=== PATIENT | female | born 1990 | race Caucasian/White ===

== ENCOUNTER 2016-12-03 14:28 | Emergency (ER) | payer MEDICAID ==
[~2016-12-03] VITALS: Ht 144.8 cm; Wt 59.0 kg
[~2016-12-03 14:28] MED LIST: ACET325T38 PO; ACHYD1T PO; ALBU8.5H4 IH; ASP81TEC PO; CLIN-62 PO; CLIN150C2 PO; CPR500T PO; HC A28.3 PR; HYDR1TAB PO; IBP800T PO; METR500T PO; NAPR-243 PO; NITR-33 PO; NITR-65 PO; NITR100C PO; ONDA8TAB9 PO; PHEN-452 PO; PHEN200T16 PO; PREN-148 PO; PREN1TAB39 PO; Progesterone; SULF-109 PO; SULF-222 PO; TRAM-21 PO; TRAM50TA2 PO; [UNRECOGNIZED DRUG - CODE] PO
[2016-12-03] MEDS ORDERED: AMPH30TA2 PO (14:41)
--- NOTE | 2016-12-03 14:49 | ED Psychosocial ---
General Chief Complaint: Psych/Social Disorder Stated Complaint: PALPITATIONS SWEATY SOA Nursing Triage Note: PT CO OF ANXIETY STATES FEELS LIKE HEART IS RACING, PT HYPERVENTILATING AT THIS X, CO OF HANDS BEING NUMB AND LIPS BEING NONE, PT ENC TO SLOW BREATHING DOWN. STATES HAS BEEN LIKE THIS SINCE 0600 THIS AM Source: patient Exam Limitations: no limitations History of Present Illness Time seen by provider: 14:49 Allergies and Home Medications Allergies Coded Allergies: Penicillins (Unverified Allergy, Mild, 04/11/09) amoxicillin (Unverified Allergy, Mild, UNKNOWN, 06/22/09) cefaclor (Unverified Allergy, Mild, 04/11/09) pseudoephedrine (Unverified Allergy, Mild, 04/11/09) Home Medications Dextroamphetamine/Amphetamine 30 Mg Tablet, 30 MG PO BID, (Reported) Past Iwkgfhf-Lpsolg-Guxdnc Hx Patient Social History Alcohol Use: Occasionally Uses Recreational Drug Use: Yes Smoking Status: Never a Smoker Recent Foreign Travel: No Contact w/Someone Who Travel: No Recent Infectious Disease Expo: No Recent Hopitalizations: No Immunizations Up To Date Tetanus Booster (TDap): More than 5yrs Seasonal Allergies Seasonal Allergies: No Surgeries HX Surgeries: Yes ("BLADDER STRETCHED", LAPAROSCOPY, D&C) Surgeries: Abdominal, Section Respiratory Hx Respiratory Disorders: Yes Respiratory Disorders: Asthma Cardiovascular Hx Cardiac Disorders: Yes Cardiac Disorders: Heart Murmur, Palpitations Neurological Hx Neurological Disorders: No Reproductive System Hx Reproductive Disorders: Yes (ENDOMETRIOSIS) Sexually Transmitted Disease: Yes (PID) Female Reproductive Disorders: Endometriosis Genitourinary Hx Genitourinary Disorders: Yes Genitourinary Disorders: Kidney Infection, Kidney Stones, UTI-Chronic Gastrointestinal Hx Gastrointestinal Disorders: No Musculoskeletal Hx Musculoskeletal Disorders: No Endocrine Hx Endocrine Disorders: No HEENT HX ENT Disorders: No Cancer Hx Cancer: No Psychosocial Hx Psychiatric Problems: No Behavioral Health Disorders: Anxiety Integumentary HX Skin/Integumentary Disorder: No Blood Transfusions Hx Blood Disorders: No Family Medical History Significant Family History: Cancer Physical Exam Vital Signs Vital Sign - Last 12Hours 12/03/16 14:30 Temp 98.1 Pulse 81 Resp 16 B/P (MAP) 131/78 Pulse Ox 100 Capillary Refill : Less Than 3 Seconds Progress/Results/Core Measures Results/Orders Lab Results Laboratory Tests Test 12/03/16 15:16 12/03/16 15:50 Range/Units White Blood Count 10.1 4.3-11.0 10^3/uL Red Blood Count 4.70 4.35-5.85 10^6/uL Hemoglobin 13.3 11.5-16.0 G/DL Hematocrit 40 35-52 % Mean Corpuscular Volume 85 80-99 FL Mean Corpuscular Hemoglobin 28 25-34 PG Mean Corpuscular Hemoglobin Concent 34 32-36 G/DL Red Cell Distribution Width 13.4 10.0-14.5 % Platelet Count 354 130-400 10^3/uL Mean Platelet Volume 9.4 7.4-10.4 FL Neutrophils (%) (Auto) 45 42-75 % Lymphocytes (%) (Auto) 46 H 12-44 % Monocytes (%) (Auto) 8 0-12 % Eosinophils (%) (Auto) 0 0-10 % Basophils (%) (Auto) 0 0-10 % Neutrophils # (Auto) 4.6 1.8-7.8 X 10^3 Lymphocytes # (Auto) 4.7 H 1.0-4.0 X 10^3 Monocytes # (Auto) 0.8 0.0-1.0 X 10^3 Eosinophils # (Auto) 0.0 0.0-0.3 10^3/uL Basophils # (Auto) 0.0 0.0-0.1 10^3/uL Sodium Level 138 135-145 MMOL/L Potassium Level 3.0 L 3.6-5.0 MMOL/L Chloride Level 104 98-107 MMOL/L Carbon Dioxide Level 21 21-32 MMOL/L Anion Gap 13 5-14 MMOL/L Blood Urea Nitrogen 7 7-18 MG/DL Creatinine 0.89 0.60-1.30 MG/DL Estimat Glomerular Filtration Rate > 60 BUN/Creatinine Ratio 8 Glucose Level 92 70-105 MG/DL Calcium Level 9.9 8.5-10.1 MG/DL Total Bilirubin 0.8 0.1-1.0 MG/DL Aspartate Amino Transf (AST/SGOT) 21 5-34 U/L Alanine Aminotransferase (ALT/SGPT) 16 0-55 U/L Alkaline Phosphatase 57 40-136 U/L Total Protein 7.8 6.4-8.2 G/DL Albumin 4.5 3.2-4.5 G/DL TSH [place] Testing 1.81 0.35-4.94 UIU/ML Salicylates Level < 5.0 L 5.0-20.0 MG/DL Acetaminophen Level < 10 L 10-30 UG/ML Serum Alcohol < 10 <10 MG/DL Urine Color YELLOW Urine Clarity CLEAR Urine pH 8 5-9 Urine Specific [place] 1.015 L 1.016-1.022 Urine Protein NEGATIVE NEGATIVE Urine Glucose (UA) NEGATIVE NEGATIVE Urine Ketones NEGATIVE NEGATIVE Urine Nitrite NEGATIVE NEGATIVE Urine Bilirubin NEGATIVE NEGATIVE Urine Urobilinogen NORMAL NORMAL MG/DL Urine Leukocyte Esterase 1+ H NEGATIVE Urine RBC (Auto) NEGATIVE NEGATIVE Urine RBC NONE /HPF Urine WBC 5-10 H /HPF Urine Squamous Epithelial Cells 10-25 H /HPF Urine Crystals NONE /LPF Urine Bacteria FEW H /HPF Urine Casts NONE /LPF Urine Mucus NEGATIVE /LPF Urine Culture Indicated YES Urine Test NEGATIVE NEGATIVE Urine Opiates Screen NEGATIVE NEGATIVE Urine Oxycodone Screen NEGATIVE NEGATIVE Urine Methadone Screen NEGATIVE NEGATIVE Urine Propoxyphene Screen NEGATIVE NEGATIVE Urine Barbiturates Screen NEGATIVE NEGATIVE Ur Tricyclic Antidepressants Screen NEGATIVE NEGATIVE Urine Phencyclidine Screen NEGATIVE NEGATIVE Urine Amphetamines Screen POSITIVE H NEGATIVE Urine Methamphetamines Screen NEGATIVE NEGATIVE Urine Benzodiazepines Screen NEGATIVE NEGATIVE Urine Cocaine Screen NEGATIVE NEGATIVE Urine Cannabinoids Screen NEGATIVE NEGATIVE My Orders Orders - VIVIAN NAIR Lorazepam Injection (Ativan Injection) (12/03/16 15:00) Ua Culture If Indicated (12/03/16 14:57) Cbc With Automated Diff (12/03/16 14:57) Comprehensive Metabolic Panel (12/03/16 14:57) Alcohol (12/03/16 14:57) Drug Screen Stat (Urine) (12/03/16 14:57) Acetaminophen (12/03/16 14:57) Salicylate (12/03/16 14:57) Ekg Tracing (12/03/16 14:57) Hcg,Qualitative Urine (12/03/16 14:57) Saline Lock/Iv-Start (12/03/16 14:57) Thyroid Analyzer (12/03/16 14:57) Chest 1 View, Ap/Pa Only (12/03/16 15:00) Urine Culture (12/03/16 15:50) Medications Given in ED Current Medications Medications Dose Ordered Sig/Zenaida Route Start Time Stop Time Status Last Admin Dose Admin Lorazepam 1 mg ONCE ONCE IVP 12/03/16 15:00 12/03/16 15:01 DC 12/03/16 15:15 1 MG Vital Signs/I&O Vital Sign - Last 12Hours 12/03/16 14:30 Temp 98.1 Pulse 81 Resp 16 B/P (MAP) 131/78 Pulse Ox 100 Blood Pressure Mean: 95 Diagnostic Imaging Diagonstic Imaging: Xray Comments CHEST 1 VIEW, AP/PA ONLY Portable upright chest Indication: Palpitations Findings: The lungs are clear. The heart size is normal. There is no effusion or pneumothorax The mediastinum and isabel appear unremarkable. Impression: Unremarkable study. Dictated by: Dictated on workstation # [id number] Reviewed: Reviewed by Me (radiology report reviewed by me. ) Departure Impression Impression: Primary Impression: Adverse effect of caffeine, initial encounter Additional Impressions: Palpitations H/O anxiety state Disposition: HOME, SELF-CARE Condition: Improved Departure-Patient Inst. Decision time for Depature: 16:30 Referrals: KEYONA RODRIGUEZ MD (PCP/Family) Primary Care Physician Patient Instructions: Anxiety, Adult (DC), Caffeine Add. Discharge Instructions: All discharge instructions reviewed with patient and/or family. Voiced understanding. Medications as instructed. No use of the supplement from [facility]. Avoid caffeine. Follow-up with your family practitioner for recheck in the next 1-2 days. Call for appointment time . Return to the emergency department immediately for worsened palpitations, pain, dizziness, changes in behavior, slurred speech, or any other concerns. Work/School Note: Work Release Form Date Seen in the Emergency Department: December 03, 2016 Return to Work: December 04, 2016 VIVIAN NAIR December 03, 2016 14:49
[2016-12-03] MEDS ORDERED: LORazepam INJ 2 MG/ML (ATIVAN) VIAL IVP ONE (15:00)
[2016-12-03 15:34] LABS: BASOPHILS % (AUTO) 0 % (0-10); EOSINOPHILS % (AUTO) 0 % (0-10); LYMPHOCYTES # (AUTO) 4.7 X 10^3 (1.0-4.0); LYMPHOCYTES % (AUTO) 46 % (12-44); MEAN CORPUSCULAR HEMOGLOBIN 28 PG (25-34); MEAN CORPUSCULAR HGB CONC 34 G/DL (32-36); MEAN CORPUSCULAR VOLUME 85 FL (80-99); MEAN PLATELET VOLUME 9.4 FL (7.4-10.4); MONOCYTES # (AUTO) 0.8 X 10^3 (0.0-1.0); MONOCYTES % (AUTO) 8 % (0-12); NEUTROPHILS # (AUTO) 4.6 X 10^3 (1.8-7.8); NEUTROPHILS % (AUTO) 45 % (42-75); PLATELET COUNT 354 10^3/uL (130-400); RED CELL DISTRIBUTION WIDTH 13.4 % (10.0-14.5); WHITE BLOOD COUNT 10.1 10^3/uL (4.3-11.0)
[2016-12-03 15:57] LABS: ALANINE AMINOTRANSFERASE 16 U/L (0-55); ALBUMIN 4.5 G/DL (3.2-4.5); ANION GAP 13 MMOL/L (5-14); ASPARTATE AMINO TRANSFERASE 21 U/L (5-34); BILIRUBIN,TOTAL 0.8 MG/DL (0.1-1.0); BLOOD UREA NITROGEN 7 MG/DL (7-18); BUN/CREATININE RATIO 8; CALCIUM 9.9 MG/DL (8.5-10.1); CARBON DIOXIDE 21 MMOL/L (21-32); CHLORIDE 104 MMOL/L (98-107); CREATININE SERUM 0.89 MG/DL (0.60-1.30); GFR ESTIMATED > 60; GLUCOSE 92 MG/DL (70-105); SALICYLATE < 5.0 MG/DL (5.0-20.0); SODIUM 138 MMOL/L (135-145); TOTAL PROTEIN 7.8 G/DL (6.4-8.2)
[2016-12-03 15:59] LABS: ACETAMINOPHEN < 10 UG/ML (10-30); ALCOHOL < 10 MG/DL (<10)
[2016-12-03 16:03] LABS: BILIRUBIN,URINE NEGATIVE (NEGATIVE); KETONES,URINE NEGATIVE (NEGATIVE); LEUKOCYTE ESTERASE ,URINE 1+ (NEGATIVE); NITRITE,URINE NEGATIVE (NEGATIVE); PH,URINE 8 (5-9); PROTEIN,URINE NEGATIVE (NEGATIVE); UROBILINOGEN,URINE NORMAL (NORMAL)
--- NOTE | 2016-12-03 16:24 | Diagnostic Imaging Report ---
Portable upright chest Indication: Palpitations Findings: The lungs are clear. The heart size is normal. There is no effusion or pneumothorax The mediastinum and isabel appear unremarkable. Impression: Unremarkable study. Dictated by: Dictated on workstation # [id number]
[2016-12-03] MEDS ORDERED: HYDR25CA PO (16:43)
[2016-12-03 16:50] VITALS: BP 122/76
== END 2016-12-03 16:50 | disposition home or self-care (01) ==
LOC: EDUNIT# 14:28 → ER 14:30
DX: R00.2 Palpitations (principal); T43.615A Adverse effect of caffeine, initial encounter; F41.9 Anxiety disorder, unspecified
CPT/HCPCS: 36415; 71010; 80053; 80306; 80320; 80329; 81000; 84443; 84703; 85025; 87088; 93005

== ENCOUNTER 2017-03-23 19:15 | Emergency (ER) | payer SELFPAY ==
[~2017-03-23] VITALS: Ht 144.8 cm; Wt 59.9 kg
[~2017-03-23 19:15] MED LIST changes: +AMPH30TA2 PO; +HYDR25CA PO
[2017-03-23] MEDS ORDERED: SULF1TAB35 PO (19:47)
--- NOTE | 2017-03-23 19:47 | ED Integumentary General ---
General Chief Complaint: Skin/Wound Problems Stated Complaint: R ARM TATTOO POSS INFECTION Source: patient Exam Limitations: no limitations History of Present Illness Time seen by provider: 19:42 Initial Comments To ER with concerns of an infection to the new tattoo that she got to the volar side of the right forearm last Thursday which would be 03/17/17. She states that beginning yesterday she had some scabs fall off of this area. This area is tender and that she has some drainage from these. Interestingly, the affected areas are only the areas that were colored with a whitish purple color. The black portions of the tattoo are not affected. She is scheduled to see her primary care provider Dr. Anne tomorrow. Timing/Duration: yesterday, getting worse Severity: moderate Associated Symptoms: blisters Allergies and Home Medications Allergies Coded Allergies: Penicillins (Unverified Allergy, Mild, 04/11/09) amoxicillin (Unverified Allergy, Mild, UNKNOWN, 06/22/09) cefaclor (Unverified Allergy, Mild, 04/11/09) pseudoephedrine (Unverified Allergy, Mild, 04/11/09) Home Medications Dextroamphetamine/Amphetamine 30 Mg Tablet, 30 MG PO BID, (Reported) Hydroxyzine Pamoate 25 Mg Capsule, 25 MG PO Q6H PRN for ANXIETY, #14 Ref 0 Prescribed by: VIVIAN NAIR on 12/03/16 1643 Constitutional: see HPI EENTM: see HPI Respiratory: no symptoms reported Cardiovascular: no symptoms reported Genitourinary: no symptoms reported Musculoskeletal: no symptoms reported Skin: see HPI Past Qtcujyq-Duqyzm-Wlggtm Hx Patient Social History Alcohol Use: Occasionally Uses Alcohol Beverage of Choice: Beer Recreational Drug Use: No Smoking Status: Never a Smoker 2nd Hand Smoke Exposure: No Recent Foreign Travel: No Contact w/Someone Who Travel: No Recent Hopitalizations: No Physical Abuse: No Sexual Abuse: No Mistreated: No Fear: No Immunizations Up To Date Tetanus Booster (TDap): More than 5yrs Seasonal Allergies Seasonal Allergies: No Surgeries History of Surgeries: Yes ("BLADDER STRETCHED", LAPAROSCOPY, D&C) Surgeries: Abdominal, Section Respiratory History of Respiratory Disorde: Yes Respiratory Disorders: Asthma Cardiovascular History of Cardiac Disorders: Yes Cardiac Disorders: Heart Murmur, Palpitations Neurological History of Neurological Disord: No Reproductive System Hx Reproductive Disorders: Yes (ENDOMETRIOSIS) Sexually Transmitted Disease: Yes (PID) Female Reproductive Disorders: Endometriosis Genitourinary Genitourinary Disorders: Kidney Infection, Kidney Stones, UTI-Chronic Gastrointestinal History of Gastrointestinal Di: No Musculoskeletal History of Musculoskeletal Dis: No Endocrine History of Endocrine Disorders: No Cancer History of Cancer: No Psychosocial History of Psychiatric Problem: Yes (narcalepsy) Behavioral Health Disorders: Anxiety, PTSD Suicide Risk Score: 0 Integumentary History of Skin or Integumenta: No Blood Transfusions History of Blood Disorders: No Family Medical History Significant Family History: No Pertinent Family Hx, Cancer Physical Exam Vital Signs Capillary Refill : General Appearance: WD/WN, no apparent distress HEENT: PERRL/EOMI, normal ENT inspection Neck: non-tender, full range of motion Respiratory: no respiratory distress, no accessory muscle use Gastrointestinal: non tender, soft Extremities: normal range of motion, non-tender, other (there is peeling of the skin on the volar side of the wrist. There is a very large tattoo in this area which is mostly black but has one small area half dollar size of light purple in. Interestingly, the light purple Shaded area is the only area affected by this scabbing and crusting.) Skin: normal color, warm/dry Skin Problem Location: upper extremities Departure Impression Impression: Primary Impression: Tattoo reaction Disposition: 01 HOME, SELF-CARE Condition: Stable Departure-Patient Inst. Decision time for Depature: 19:46 Referrals: KEYONA ANNE MD (PCP/Family) Primary Care Physician Patient Instructions: NO INSTRUCTIONS GIVEN Add. Discharge Instructions: 1. Apply the antibiotic ointment and a steroid cream twice daily for the next [address] Anne tomorrow for recheck 3. All discharge instructions reviewed with patient and/or family. Voiced understanding. Scripts Sulfamethoxazole/Trimethoprim (Bactrim Ds Tablet) 1 Each Tablet 1 EACH PO BID, #14 TAB Prov: KATIA CARDOZA APRN 03/23/17 Copy Copies To 1: KEYONA ANNE MD, PETER J APRN Mar 23, 2017 19:47
[2017-03-23] MEDS ORDERED: TRIAMCINOLONE 0.1% CR (KENALOG) 15 GM TUBE ONE (19:48)
[2017-03-23 19:59] VITALS: BP 123/87
[2017-03-23] MEDS ORDERED: TRIAMCINOLONE 0.5% CR (KENALOG) 15 GM TUBE TOP SCH (21:00)
[2017-03-23] MEDS ORDERED: MUPIROCIN 2% OINT 22 GM (BACTROBAN) TUBE TOP SCH (21:00)
[2017-03-23] MEDS ORDERED: TRIAMCINOLONE 0.1% CR (KENALOG) 15 GM TUBE TOP SCH (21:00)
== END 2017-03-23 19:59 | disposition home or self-care (01) ==
LOC: EDUNIT# 19:15 → ER 19:18
DX: T81.89XA Other complications of procedures, not elsewhere classified, initial encounter (principal); L81.8 Other specified disorders of pigmentation; J45.909 Unspecified asthma, uncomplicated; F41.9 Anxiety disorder, unspecified; F43.10 Post-traumatic stress disorder, unspecified; Z87.448 Personal history of other diseases of urinary system; Z87.440 Personal history of urinary (tract) infections; Z87.59 Personal history of other complications of pregnancy, childbirth and the puerperium; Z98.890 Other specified postprocedural states
CPT/HCPCS: 99282

== ENCOUNTER → 2017-07-01 | Outpatient (CLI) | payer MEDICAID ==
[~2017-07-01] MED LIST changes: +SULF1TAB35 PO
--- NOTE | 2017-07-01 11:43 | Diagnostic Imaging Report ---
EXAMINATION: Transabdominal and transvaginal OB ultrasound. INDICATION: Antepartum bleeding. COMPARISON: 05/21/2017. FINDINGS: The uterus is 9.9 x 6.2 x 5.5 CM. The endometrial stripe is 1.2 CM in thickness with internal vascularity with color Doppler noted in the endometrium. There is hypervascularity seen in the myometrium with no focal mass. There is absence of a gestational sac as suggested on the previous exam and there are no parts seen. The right ovary is 3.5 x 1.8 x 2.1 CM. The left ovary is 2.8 x 2.3 x 1.6 CM. No adnexal masses identified. Arterial waveforms are seen in the left ovary. The right ovary demonstrates color-flow with no waveform interrogation performed. IMPRESSION: The previously seen presumed sac in the uterus is not visualized. At this time there is hypervascular slightly heterogenous endometrium. The findings are favored to represent retained products of conception after of an intrauterine . The findings were called to Dr. Robert by the cytogenetics technologist, who performed the exam at time of dictation. Dictated by: Dictated on workstation # [id number]
== END ==
LOC: RAD 10:08
PROVIDERS: ATTEND Obstetrics & Gynecology
DX: O20.9 Hemorrhage in early pregnancy, unspecified (principal); Z3A.00 Weeks of gestation of pregnancy not specified
CPT/HCPCS: 76801; 76817

== ENCOUNTER 2018-06-02 09:03 | Emergency (ER) | payer MEDICAID, OTHER ==
[~2018-06-02] VITALS: Ht 157.5 cm; Wt 79.4 kg
[2018-06-02 09:34] LABS: BILIRUBIN,URINE NEGATIVE (NEGATIVE); CLARITY,URINE CLEAR; COLOR,URINE YELLOW; GLUCOSE, URINE (UA) NEGATIVE (NEGATIVE); KETONES,URINE NEGATIVE (NEGATIVE); LEUKOCYTE ESTERASE ,URINE 1+ (NEGATIVE); NITRITE,URINE NEGATIVE (NEGATIVE); PH,URINE 6 (5-9); PROTEIN,URINE 1+ (NEGATIVE); UROBILINOGEN,URINE NORMAL (NORMAL)
[2018-06-02 09:42] LABS: BACTERIA,URINE MODERATE /HPF
[2018-06-02] MEDS ORDERED: CEPH-507 PO (11:38)
--- NOTE | 2018-06-02 11:38 | ED Back Pain ---
General Chief Complaint: Back Problems Stated Complaint: BACK PAIN 9 WKS Nursing Triage Note: PT AMBULATED TO ROOM 9 PT CO OF R FLANK PAIN FOR 2 DAYS PT STATES CURRENTLY TAKING ANTIBIOTIC FOR UTI. PT STATES IS 9 WEEKS . AND HAS HX KIDNEY STONES X2 Nursing Sepsis Screen: No Definite Risk Source of Information: Patient Exam Limitations: No Limitations History of Present Illness Date Seen by Provider: Jun 02, 2018 Time Seen by Provider: 11:00 Initial Comments Patient is a 28-year-old female who presents to the emergency room with complaints of flank pain bilaterally for the past 2 days. She reports that she is currently taking Macrobid for urinary tract infection is making her sick she' s having hard time keeping it down. She also reports that she is 9 weeks . Timing/Duration: 2-3 Days Associated Symptoms: lower back pain Allergies and Home Medications Allergies Coded Allergies: Penicillins (Unverified Allergy, Mild, 04/11/09) amoxicillin (Unverified Allergy, Mild, UNKNOWN, 06/22/09) cefaclor (Unverified Allergy, Mild, 04/11/09) pseudoephedrine (Unverified Allergy, Mild, 04/11/09) Home Medications Cephalexin 500 Mg Capsule, 500 MG PO BID Prescribed by: NEDA MAHONEY on 06/02/18 1138 Dextroamphetamine/Amphetamine 30 Mg Tablet, 30 MG PO BID, (Reported) Hydroxyzine Pamoate 25 Mg Capsule, 25 MG PO Q6H PRN for ANXIETY Prescribed by: VIVIAN NAIR on 12/03/16 1643 Sulfamethoxazole/Trimethoprim 1 Each Tablet, 1 EACH PO BID Prescribed by: KATIA CARDOZA on 03/23/17 1947 Patient Home Medication List Home Medication List Reviewed: Yes Review of Systems Constitutional: see HPI; No chills, No fever Genitourinary: see HPI, dysuria, other (flank pain) : Yes Past Exkilmo-Acexee-Nbgzuk Hx Past Med/Social Hx: Reviewed Nursing Past Med/Soc Hx Patient Social History Alcohol Use: Denies Use Number of Drinks Today: AA Alcohol Beverage of Choice: Beer Recreational Drug Use: No Smoking Status: Never a Smoker 2nd Hand Smoke Exposure: No Recent Foreign Travel: No Contact w/Someone Who Travel: No Recent Infectious Disease Expo: No Recent Hopitalizations: No Physical Abuse: No Sexual Abuse: No Immunizations Up To Date Tetanus Booster (TDap): More than 5yrs Seasonal Allergies Seasonal Allergies: No Past Medical History Surgeries: Yes ("BLADDER STRETCHED", LAPAROSCOPY, D&C) Abdominal, Section Respiratory: Yes Asthma Cardiac: Yes Heart Murmur, Palpitations Neurological: No : Yes Expected Date of Delivery: Jan 10, 2019 Last Menstrual Period: Apr 05, 2018 Hx : 8 Hx Para: 3 Hx Total # of Abortions (Sp): 4 Reproductive Disorders: Yes (ENDOMETRIOSIS) Female Reproductive Disorders: Endometriosis Sexually Transmitted Disease: Yes (PID) Kidney Infection, Kidney Stones, UTI-Chronic Gastrointestinal: No Musculoskeletal: No Endocrine: No Cancer: No Psychosocial: Yes (narcalepsy) Anxiety, PTSD Integumentary: No Blood Disorders: No Family Medical History Reviewed Nursing Family Hx No Pertinent Family Hx, Cancer Physical Exam Vital Signs Vital Signs - First Documented 06/02/18 09:10 Temp 96.9 Pulse 84 Resp 18 B/P (MAP) 104/56 (72) Pulse Ox 100 Capillary Refill : Less Than 3 Seconds Height, Weight, BMI Height: 5'2.00" Weight: 175lbs. 0.0oz. [id number]; 37.6 BMI Method:Stated General Appearance: No Apparent Distress, WD/WN Cardiovascular: Regular Rate, Rhythm, No Edema, No Gallop, No JVD, No Murmur, Normal Peripheral Pulses Respiratory: Chest Non Tender, Lungs Clear, Normal Breath Sounds, No Accessory Muscle Use, No Respiratory Distress, Accessory Muscle Use Gastrointestinal: Normal Bowel Sounds, No Organomegaly, No Pulsatile Mass, Non Tender, Soft Neurologic/Psychiatric: Alert, Oriented x3, Normal Mood/Affect Skin: Normal Color, Warm/Dry Progress/Results/Core Measures Results/Orders Lab Results Laboratory Tests Test 06/02/18 09:25 Range/Units Urine Color YELLOW Urine Clarity CLEAR Urine pH 6 5-9 Urine Specific [place] 1.020 1.016-1.022 Urine Protein 1+ H NEGATIVE Urine Glucose (UA) NEGATIVE NEGATIVE Urine Ketones NEGATIVE NEGATIVE Urine Nitrite NEGATIVE NEGATIVE Urine Bilirubin NEGATIVE NEGATIVE Urine Urobilinogen NORMAL NORMAL MG/DL Urine Leukocyte Esterase 1+ H NEGATIVE Urine RBC (Auto) NEGATIVE NEGATIVE Urine RBC NONE /HPF Urine WBC 2-5 /HPF Urine Squamous Epithelial Cells 10-25 H /HPF Urine Crystals NONE /LPF Urine Bacteria MODERATE H /HPF Urine Casts NONE /LPF Urine Mucus SMALL H /LPF Urine Culture Indicated YES Vital Signs/I&O 06/02/18 06/02/18 09:10 11:47 Temp 96.9 96.9 Pulse 84 84 Resp 18 18 B/P (MAP) 104/56 (72) 104/56 (72) Pulse Ox 100 100 Blood Pressure Mean: 72 Progress Progress Note : Time: 11:33 Progress Note I have seen and evaluated the patient. I've informed her of her laboratory studies. Dr. Shane assisted with this patient and performed a bedside ultrasound and heart rate was 155 and the measurements were consistent with estimated delivery date. The patient agrees with plans for discharge, return precautions were given. I will be switching her antibiotics to Keflex to see if she can tolerate this better for her urinary tract infection. Departure Impression Primary Impression: Threatened miscarriage Additional Impression: UTI (urinary tract infection) Disposition: 01 HOME, SELF-CARE Condition: Stable/Unchanged Departure-Patient Inst. Decision time for Depature: 11:35 Referrals: NO,LOCAL PHYSICIAN (PCP) Primary Care Physician Patient Instructions: Threatened Miscarriage (DC), Urinary Tract Infection, Adult (DC) Add. Discharge Instructions: Take medications as directed. Tylenol as directed by the bottle for pain relief. Plenty of clear liquids like water to stay hydrated and help to flush your kidneys. Alternate ice packs and heating packs to the sore areas for comfort. Follow-up with her primary care provider within 1 week for recheck. Return back to the emergency room for any worsening symptoms, vaginal bleeding, or any other concerns as needed. All discharge instructions reviewed with patient and/or family. Voiced understanding. Scripts Cephalexin (Keflex) 500 Mg Capsule 500 MG PO BID for 7 Days, #14 CAP Prov: NEDA MAHONEY 06/02/18 NEDA MAHONEY Jun 02, 2018 11:38
[2018-06-02 11:47] VITALS: BP 104/56
== END 2018-06-02 11:51 | disposition home or self-care (01) ==
LOC: EDUNIT# 09:03 → ER 09:05
DX: O20.0 Threatened abortion (principal); O23.41 Unspecified infection of urinary tract in pregnancy, first trimester; O99.511 Diseases of the respiratory system complicating pregnancy, first trimester; J45.909 Unspecified asthma, uncomplicated; O99.341 Other mental disorders complicating pregnancy, first trimester; F41.9 Anxiety disorder, unspecified; F43.10 Post-traumatic stress disorder, unspecified; Z88.0 Allergy status to penicillin; Z88.8 Allergy status to other drugs, medicaments and biological substances; Z87.448 Personal history of other diseases of urinary system; Z87.440 Personal history of urinary (tract) infections; Z3A.09 9 weeks gestation of pregnancy; Z98.890 Other specified postprocedural states
CPT/HCPCS: 81000; 87088; 99282

== ENCOUNTER 2018-11-06 19:07 | Outpatient (CLI) | payer OTHER ==
[~2018-11-06] VITALS: Ht 154.9 cm; Wt 89.9 kg
--- NOTE | 2018-11-06 18:58 | NUR ---
RICCI CARABALLO presented to unit via AMBULATORY from HOME, accompanied by A VISITOR, with c/o LEAKING,SHARP PAINS. RICCI CARABALLO weighed, gowned, voided, and to bed. EFHM and TOCO applied, VS taken. RICCI CARABALLO oriented to bed controls, call light, TV, heat, and A/C controls.
[~2018-11-06 19:07] MED LIST changes: +ACET325C5 PO; +CEPH-507 PO
[2018-11-06 19:20] VITALS: BP 116/64
[2018-11-06 19:45] LABS: BILIRUBIN,URINE NEGATIVE (NEGATIVE); CLARITY,URINE CLEAR; COLOR,URINE YELLOW; GLUCOSE, URINE (UA) NEGATIVE (NEGATIVE); KETONES,URINE NEGATIVE (NEGATIVE); LEUKOCYTE ESTERASE ,URINE 1+ (NEGATIVE); NITRITE,URINE NEGATIVE (NEGATIVE); PH,URINE 6.5 (5-9); PROTEIN,URINE NEGATIVE (NEGATIVE); UROBILINOGEN,URINE NORMAL (NORMAL)
--- NOTE | 2018-11-06 19:58 | NUR ---
Dr. Will called and informed that pt of Dr. Fitzgerald's presented with complaints of leaking fluid for the past four days and a minor pain on the left side of her previous incision that she rates at a 3 on a numeric pain scale. Strip reviewed and informed that pt has had one contraction in the hour that she has been here. informed that amnio swab was negative at this time. states that pt can be offered tylenol, or she can take it at home upon discharge. Pt can be discharged at this time.
[2018-11-06 20:14] LABS: BACTERIA,URINE LARGE /HPF
--- NOTE | 2018-11-06 20:17 | NUR ---
Discharge paperwork reviewed with pt. Pt. walks off of floor with friend after discharge. No s/s of distress at this time.
--- NOTE | 2018-11-09 15:54 | Clinic Account Progress/Dx ---
Clinic Account Progress/Dx DIAGNOSIS: Possible rupture of membranes at 31 6/7 wga HERMES FARR Nov 09, 2018 15:54 FABIEN WANG MD November 10, 2018 15:08
== END 2018-11-06 20:17 | disposition home or self-care (01) ==
LOC: WSo 19:07 → LDRP 19:08 → WSo 20:17
PROVIDERS: ATTEND Family Medicine
DX: O99.89 Other specified diseases and conditions complicating pregnancy, childbirth and the puerperium (principal); Z3A.31 31 weeks gestation of pregnancy
CPT/HCPCS: 81000; 87088; 99213

== ENCOUNTER 2018-11-30 16:41 | Outpatient (CLI) | payer OTHER ==
[~2018-11-30] VITALS: Ht 156.2 cm; Wt 92.6 kg
--- NOTE | 2018-11-30 16:35 | NUR ---
Arrived to unit via ambulation with c/o "burning at incision and contractions." Wt obtained and to room 315. Gowned and urine sample obtained. Plan of care reviewed with pt. assessment. oriented to room, call light and surroundings.
[2018-11-30 16:45] VITALS: BP 106/59
--- NOTE | 2018-11-30 17:40 | NUR ---
Dr Glover notified of pt arrival and c/o, assessment, fhr pattern reactive, contractions, sve. new orders received. plan of care reviewed with pt .
[2018-11-30] MEDS ORDERED: D5 LR IV SOLUTION 1,000 ML IV ONE (17:51)
[2018-11-30] MEDS ORDERED: BETAMETHASONE ACE/NA PHOS 6 MG/ML (CELESTONE SOLUSPAN) IM SCH (18:00)
[2018-11-30] MEDS ORDERED: D5 LR IV SOLUTION 1,000 ML IV SCH (18:00)
[2018-11-30 18:45] LABS: BASOPHILS % (AUTO) 0 % (0-10); EOSINOPHILS # (AUTO) 0.1 10^3/uL (0.0-0.3); EOSINOPHILS % (AUTO) 1 % (0-10); HEMATOCRIT 28 % (35-52); HEMOGLOBIN 9.3 G/DL (11.5-16.0); LYMPHOCYTES # (AUTO) 2.2 X 10^3 (1.0-4.0); LYMPHOCYTES % (AUTO) 19 % (12-44); MEAN CORPUSCULAR HEMOGLOBIN 26 PG (25-34); MEAN CORPUSCULAR HGB CONC 33 G/DL (32-36); MEAN CORPUSCULAR VOLUME 79 FL (80-99); MONOCYTES # (AUTO) 1.3 X 10^3 (0.0-1.0); MONOCYTES % (AUTO) 11 % (0-12); NEUTROPHILS # (AUTO) 8.1 X 10^3 (1.8-7.8); NEUTROPHILS % (AUTO) 70 % (42-75); PLATELET COUNT 282 10^3/uL (130-400); RED CELL DISTRIBUTION WIDTH 14.9 % (10.0-14.5); WHITE BLOOD COUNT 11.6 10^3/uL (4.3-11.0)
[2018-11-30 19:04] LABS: ALANINE AMINOTRANSFERASE 6 U/L (0-55); ALBUMIN 3.2 GM/DL (3.2-4.5); ALKALINE PHOSPHATASE 100 U/L (40-136); BILIRUBIN,TOTAL 0.4 MG/DL (0.1-1.0); BUN/CREATININE RATIO 12; CALCIUM 9.1 MG/DL (8.5-10.1); CARBON DIOXIDE 16 MMOL/L (21-32); CHLORIDE 108 MMOL/L (98-107); CREATININE SERUM 0.65 MG/DL (0.60-1.30); GFR ESTIMATED > 60; GLUCOSE 99 MG/DL (70-105); POTASSIUM 3.4 MMOL/L (3.6-5.0); SODIUM 137 MMOL/L (135-145); TOTAL PROTEIN 6.1 GM/DL (6.4-8.2)
[2018-11-30 19:33] VITALS: BP 107/56
--- NOTE | 2018-11-30 20:50 | NUR ---
Dr Glover in room talking with pt. Discussed c/o and treatment options. POC reviewed with pt. Verbalizes understanding. Order received for discharge.
--- NOTE | 2018-11-30 21:20 | NUR ---
discharge instructions given to pt and explained. Pt denies questions. verbalizes understanding. Pt given script from dr walters for repeat betamethasone. IV removed. EFM and toco dc'd. pt left to dress.
--- NOTE | 2018-11-30 21:32 | NUR ---
Pt ambulated off unit accompanied by SO and friend. no s/s distress noted.
== END 2018-11-30 21:32 | disposition home or self-care (01) ==
LOC: LDRP 16:41 → WSo 16:41
PROVIDERS: ATTEND Obstetrics & Gynecology
DX: O47.03 False labor before 37 completed weeks of gestation, third trimester (principal); Z3A.34 34 weeks gestation of pregnancy
CPT/HCPCS: 36415; 80053; 85025; 96360; 96361; 96372; 99213

== ENCOUNTER 2019-08-22 21:24 | Emergency (ER) | payer OTHER ==
[~2019-08-22] VITALS: Ht 149.8 cm; Wt 72.7 kg
[~2019-08-22 21:24] MED LIST changes: -ACET325C5 PO; +ACET325C7 PO
--- NOTE | 2019-08-22 21:36 | ED Neurological Problem ---
General Stated Complaint: ABD PAIN,SEIZURES Source: patient, police Exam Limitations: no limitations History of Present Illness Date Seen by Provider: Aug 22, 2019 Time Seen by Provider: 21:36 Initial Comments 29-year-old female brought in by PD. Patient was in [facility] when she started "having seizures" with lower abdominal discomfort and cramping. Patient is 6 weeks 1 day and states she has some "spotting" patient was arrested today when she was late for a court. 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 Patient comes in shaking however when I sternal rubbed her it immediately stops and she becomes responsive and talks to me. Patient then asked me she is "having a seizure" patient reports her cramping is all across lower abdomen, there is no focal tenderness. Patient reports her last hCG was 14,000 when checked by her primary care provider Allergies and Home Medications Allergies Coded Allergies: Penicillins (Unverified Allergy, Mild, 04/11/09) amoxicillin (Unverified Allergy, Mild, UNKNOWN, 06/22/09) cefaclor (Unverified Allergy, Mild, 04/11/09) pseudoephedrine (Unverified Allergy, Mild, 04/11/09) Home Medications Acetaminophen 325 Mg Capsule, 325 MG PO NEEDED, (Reported) Hydroxyzine Pamoate 25 Mg Capsule, 25 MG PO Q6H PRN for ANXIETY Prescribed by: VIVIAN NAIR on 12/03/16 1643 Patient Home Medication List Home Medication List Reviewed: Yes Review of Systems Review of Systems Constitutional: no symptoms reported Eyes: No Symptoms Reported Ears, Nose, Mouth, Throat: no symptoms reported Respiratory: no symptoms reported Cardiovascular: no symptoms reported Gastrointestinal: see HPI Genitourinary: see HPI : Yes LMP: Jul 10, 1999 Musculoskeletal: no symptoms reported Skin: no symptoms reported Past Emnwjec-Owtiib-Ljmxar Hx Past Med/Social Hx: Reviewed Nursing Past Med/Soc Hx Patient Social History Alcohol Beverage of Choice: Beer 2nd Hand Smoke Exposure: No Recent Foreign Travel: No Contact w/Someone Who Travel: No Recent Hopitalizations: No Immunizations Up To Date Tetanus Booster (TDap): More than 5yrs Seasonal Allergies Seasonal Allergies: No Past Medical History Surgeries: Yes ("BLADDER STRETCHED", LAPAROSCOPY, D&C) Abdominal, Section Respiratory: Yes Asthma Cardiac: Yes Heart Murmur, Palpitations Neurological: No Reproductive Disorders: Yes (ENDOMETRIOSIS) Female Reproductive Disorders: Endometriosis Sexually Transmitted Disease: Yes (PID) Kidney Infection, Kidney Stones, UTI-Chronic Gastrointestinal: No Musculoskeletal: No Endocrine: No Cancer: No Psychosocial: Yes (narcalepsy) Anxiety, PTSD Integumentary: No Blood Disorders: No Family Medical History No Pertinent Family Hx, Cancer Physical Exam Vital Signs Vital Signs - First Documented 08/22/19 21:30 Temp 37.0 Pulse 87 Resp 18 B/P (MAP) 132/75 (94) Pulse Ox 100 O2 Delivery Room Air Capillary Refill : Height, Weight, BMI Height: 5'1.50" Weight: 204lbs. 2.0oz. 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, alert, normal mood/affect, oriented x 3 Progress/Results/Core Measures Results/Orders Lab Results Laboratory Tests Test 08/22/19 20:25 Range/Units White Blood Count 8.3 4.3-11.0 10^3/uL Red Blood Count 4.28 L 4.35-5.85 10^6/uL Hemoglobin 13.1 11.5-16.0 G/DL Hematocrit 38 35-52 % Mean Corpuscular Volume 90 80-99 FL Mean Corpuscular Hemoglobin 31 25-34 PG Mean Corpuscular Hemoglobin Concent 34 32-36 G/DL Red Cell Distribution Width 13.2 10.0-14.5 % Platelet Count 281 130-400 10^3/uL Mean Platelet Volume 9.0 7.4-10.4 FL Neutrophils (%) (Auto) 70 42-75 % Lymphocytes (%) (Auto) 22 12-44 % Monocytes (%) (Auto) 6 0-12 % Eosinophils (%) (Auto) 0 0-10 % Basophils (%) (Auto) 0 0-10 % Neutrophils # (Auto) 5.8 1.8-7.8 X 10^3 Lymphocytes # (Auto) 1.9 1.0-4.0 X 10^3 Monocytes # (Auto) 0.5 0.0-1.0 X 10^3 Eosinophils # (Auto) 0.0 0.0-0.3 10^3/uL Basophils # (Auto) 0.0 0.0-0.1 10^3/uL Sodium Level 139 135-145 MMOL/L Potassium Level 3.6 3.6-5.0 MMOL/L Chloride Level 103 98-107 MMOL/L Carbon Dioxide Level 21 21-32 MMOL/L Anion Gap 15 H 5-14 MMOL/L Blood Urea Nitrogen 4 L 7-18 MG/DL Creatinine 0.75 0.60-1.30 MG/DL Estimat Glomerular Filtration Rate > 60 BUN/Creatinine Ratio 5 Glucose Level 103 70-105 MG/DL Calcium Level 9.5 8.5-10.1 MG/DL Corrected Calcium 9.2 8.5-10.1 MG/DL Total Bilirubin 0.6 0.1-1.0 MG/DL Aspartate Amino Transf (AST/SGOT) 23 5-34 U/L Alanine Aminotransferase (ALT/SGPT) 32 0-55 U/L Alkaline Phosphatase 64 40-136 U/L Total Protein 7.3 6.4-8.2 GM/DL Albumin 4.4 3.2-4.5 GM/DL Human Chorionic Gonadotropin, Quant 6510 H <5 MIU/ML My Orders Orders - MORENO,BRYON L DO Cbc With Automated Diff (08/22/19 21:49) Comprehensive Metabolic Panel (08/22/19 21:49) Hcg,Quantitative (08/22/19 21:49) Lorazepam Tablet (Ativan Tablet) (08/23/19 00:08) Vital Signs/I&O 08/22/19 08/23/19 21:30 00:28 Temp 37.0 37.0 Pulse 87 87 Resp 18 18 B/P (MAP) 132/75 (94) 132/75 Pulse Ox 100 100 O2 Delivery Room Air Room Air Progress Progress Note : Time: 00:14 Progress Note Patient with likely miscarriage. Beta hCG was 6500 versus 14,000 at her previous check. I recommended patient follow-up with her primary care provider in the next 2-3 days for recheck. Sooner if symptoms worsen. Return to the ER as needed Departure Impression Primary Impression: Threatened miscarriage Additional Impression: Pseudoseizure Disposition: 01 HOME, SELF-CARE Condition: Stable Departure-Patient Inst. Referrals: TERESITA PERDOMO DO (PCP/Family) Primary Care Physician Patient Instructions: Dealing With Miscarriage, Miscarriage (DC), Threatened Miscarriage Add. Discharge Instructions: Follow-up with your time care provider and 2-3 days for recheck and continuation of care BRYON MORENO DO Aug 22, 2019 21:36
--- NOTE | 2019-08-22 21:49 | NUR ---
PT. IS A PERSON THAT CAME [facility]. HER COMPLAINT WAS SHE WAS HAVING SEIZURES, SHE IS AND HAD A BLOODY SHOW. UPON ARRIVAL THE OFFICER CAME OUT AND REPORTED THAT THE PT. WAS HAVING A SEIZURE. PT WAS PRETENDING TO HAVE A SEIZURE AND WHEN THE STERNAL RUB WAS DONE BY DOCTOR MORENO THE PT OPENED HER EYES AND SQUEALED.
[2019-08-22 22:30] LABS: BASOPHILS % (AUTO) 0 % (0-10); EOSINOPHILS % (AUTO) 0 % (0-10); HEMATOCRIT 38 % (35-52); HEMOGLOBIN 13.1 G/DL (11.5-16.0); LYMPHOCYTES # (AUTO) 1.9 X 10^3 (1.0-4.0); LYMPHOCYTES % (AUTO) 22 % (12-44); MEAN CORPUSCULAR HEMOGLOBIN 31 PG (25-34); MEAN CORPUSCULAR HGB CONC 34 G/DL (32-36); MEAN CORPUSCULAR VOLUME 90 FL (80-99); MONOCYTES # (AUTO) 0.5 X 10^3 (0.0-1.0); MONOCYTES % (AUTO) 6 % (0-12); NEUTROPHILS # (AUTO) 5.8 X 10^3 (1.8-7.8); NEUTROPHILS % (AUTO) 70 % (42-75); PLATELET COUNT 281 10^3/uL (130-400); RED CELL DISTRIBUTION WIDTH 13.2 % (10.0-14.5); WHITE BLOOD COUNT 8.3 10^3/uL (4.3-11.0)
[2019-08-22 22:50] LABS: ALANINE AMINOTRANSFERASE 32 U/L (0-55); ALBUMIN 4.4 GM/DL (3.2-4.5); ALKALINE PHOSPHATASE 64 U/L (40-136); BILIRUBIN,TOTAL 0.6 MG/DL (0.1-1.0); BUN/CREATININE RATIO 5; CALCIUM 9.5 MG/DL (8.5-10.1); CARBON DIOXIDE 21 MMOL/L (21-32); CHLORIDE 103 MMOL/L (98-107); CREATININE SERUM 0.75 MG/DL (0.60-1.30); GFR ESTIMATED > 60; GLUCOSE 103 MG/DL (70-105); POTASSIUM 3.6 MMOL/L (3.6-5.0); SODIUM 139 MMOL/L (135-145); TOTAL PROTEIN 7.3 GM/DL (6.4-8.2)
[2019-08-23] MEDS ORDERED: LORazepam 0.5 MG (ATIVAN) TABLET PO STA (00:08)
[2019-08-23 00:28] VITALS: BP 132/75
== END 2019-08-23 00:32 | disposition home or self-care (01) ==
LOC: EDUNIT# 21:24 → ER FS 21:26
DX: O20.0 Threatened abortion (principal); O99.351 Diseases of the nervous system complicating pregnancy, first trimester; G40.89 Other seizures; O99.341 Other mental disorders complicating pregnancy, first trimester; F41.9 Anxiety disorder, unspecified; Z3A.01 Less than 8 weeks gestation of pregnancy; Z88.0 Allergy status to penicillin; Z88.1 Allergy status to other antibiotic agents; Z88.8 Allergy status to other drugs, medicaments and biological substances
CPT/HCPCS: 36415; 80053; 84702; 85025; 99283

== ENCOUNTER 2019-09-09 13:35 | Emergency (ER) | payer OTHER ==
[~2019-09-09] VITALS: Ht 149 cm; Wt 72.5 kg
--- NOTE | 2019-09-09 14:01 | NUR ---
patient to room 9, ambulatory without difficulty. patient in gown, warm blankets given.
--- NOTE | 2019-09-09 14:16 | ED GU-Female ---
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 Nursing Triage Note: was at the dentist office just IRONER when she states she went to the restroom and blood started pouring out of her vagina Nursing Sepsis Screen: No Definite Risk Source: patient Exam Limitations: no limitations History of Present Illness Date Seen by Provider: Sep 09, 2019 Time Seen by Provider: 14:14 Initial Comments To ER with reports of vaginal bleeding. She is about 9 weeks . She was seen at [facility] on August 22, she had an hCG of 6000 and some change. Previously it was reported by her that at primary care the hCG was 14,000. Today, she has lower abdominal cramping and vaginal bleeding. Timing/Duration: constant Severity/Quality: moderate, cramping Location: suprapubic Radiation: none Activities at Onset: none Prior Genitourinary Problems: none Associated Symptoms: denies symptoms; No dysuria Allergies and Home Medications Allergies Coded Allergies: Penicillins (Unverified Allergy, Mild, 04/11/09) amoxicillin (Unverified Allergy, Mild, UNKNOWN, 06/22/09) cefaclor (Unverified Allergy, Mild, 04/11/09) Home Medications Acetaminophen 325 Mg Capsule, 325 MG PO NEEDED, (Reported) Hydroxyzine Pamoate 25 Mg Capsule, 25 MG PO Q6H PRN for ANXIETY Prescribed by: VIVIAN NAIR on 12/03/16 1643 Patient Home Medication List Home Medication List Reviewed: Yes Review of Systems Review of Systems Constitutional: see HPI; No chills, No fever EENTM: see HPI Respiratory: no symptoms reported Cardiovascular: no symptoms reported Genitourinary: see HPI, other Musculoskeletal: no symptoms reported Skin: no symptoms reported Psychiatric/Neurological: No Symptoms Reported Past Naduwhd-Ornbsa-Vzmjpa Hx Patient Social History Alcohol Use: Denies Use Number of Drinks Today: AA Alcohol Beverage of Choice: Beer Recreational Drug Use: No 2nd Hand Smoke Exposure: No Recent Foreign Travel: No Contact w/Someone Who Travel: No Recent Infectious Disease Expo: No Recent Hopitalizations: No Immunizations Up To Date Tetanus Booster (TDap): More than 5yrs Seasonal Allergies Seasonal Allergies: No Past Medical History Surgeries: Yes ("BLADDER STRETCHED", LAPAROSCOPY, D&C) Abdominal, Section Respiratory: No Asthma Cardiac: Yes Heart Murmur, Palpitations Neurological: No Reproductive Disorders: Yes (ENDOMETRIOSIS) Female Reproductive Disorders: Endometriosis Sexually Transmitted Disease: Yes (PID) Kidney Infection, Kidney Stones, UTI-Chronic Gastrointestinal: No Musculoskeletal: No Endocrine: No Cancer: No Psychosocial: Yes (narcalepsy) Anxiety, PTSD Integumentary: No Blood Disorders: No Family Medical History No Pertinent Family Hx, Cancer Physical Exam Vital Signs Vital Signs - First Documented 09/09/19 13:36 Temp 37.0 Pulse 59 Resp 18 B/P (MAP) 109/62 (78) Capillary Refill : Less Than 3 Seconds Height, Weight, BMI Height: 5'1.50" Weight: 204lbs. 2.0oz. 92.168346fx; 32.00 BMI Method:Stated General Appearance: WD/WN, no apparent distress HEENT: PERRL/EOMI, normal ENT inspection Neck: non-tender, full range of motion Respiratory: no respiratory distress, no accessory muscle use Gastrointestinal: normal bowel sounds, non tender, soft Extremities: normal range of motion, non-tender Neurologic/Psychiatric: alert, normal mood/affect, oriented x 3 Skin: normal color, warm/dry Progress/Results/Core Measures Suspected Sepsis Recent Fever Within 48 Hours: No Infection Criteria Present: None New/Unexplained Altered Menta: No Sepsis Screen: No Definite Risk SIRS Temperature: Pulse: 59 Respiratory Rate: 18 Laboratory Tests 09/09/19 14:42: White Blood Count 8.3 Blood Pressure 109 /62 Mean: 78 Laboratory Tests 09/09/19 14:42: Platelet Count 291 Results/Orders Lab Results Laboratory Tests Test 09/09/19 14:42 09/09/19 15:47 Range/Units White Blood Count 8.3 4.3-11.0 10^3/uL Red Blood Count 4.54 4.35-5.85 10^6/uL Hemoglobin 13.7 11.5-16.0 G/DL Hematocrit 41 35-52 % Mean Corpuscular Volume 91 80-99 FL Mean Corpuscular Hemoglobin 30 25-34 PG Mean Corpuscular Hemoglobin Concent 33 32-36 G/DL Red Cell Distribution Width 13.7 10.0-14.5 % Platelet Count 291 130-400 10^3/uL Mean Platelet Volume 9.1 7.4-10.4 FL Neutrophils (%) (Auto) 64 42-75 % Lymphocytes (%) (Auto) 27 12-44 % Monocytes (%) (Auto) 8 0-12 % Eosinophils (%) (Auto) 1 0-10 % Basophils (%) (Auto) 0 0-10 % Neutrophils # (Auto) 5.3 1.8-7.8 X 10^3 Lymphocytes # (Auto) 2.2 1.0-4.0 X 10^3 Monocytes # (Auto) 0.7 0.0-1.0 X 10^3 Eosinophils # (Auto) 0.1 0.0-0.3 10^3/uL Basophils # (Auto) 0.0 0.0-0.1 10^3/uL Human Chorionic Gonadotropin, Quant 45315 H <5 MIU/ML My Orders Orders - KATIA CARDOZA APRN Hcg,Quantitative (09/09/19 14:00) Cbc With Automated Diff (09/09/19 14:00) Ua Culture If Indicated (09/09/19 14:07) Us Ob Single Fetus<14 [id number] (09/09/19 14:00) Vital Signs/I&O 09/09/19 13:36 Temp 37.0 Pulse 59 Resp 18 B/P (MAP) 109/62 (78) Capillary Refill : Less Than 3 Seconds Blood Pressure Mean: 78 Diagnostic Imaging Diagonstic Imaging: Ultrasound Comments NAME: RICCI CARABALLO [facility] REC#: [id number] PT STATUS: REG ER : 1990 PHYSICIAN: KATIA CARDOZA APRN ADMIT DATE: 09/09/19/ER Draft Date of Exam:09/09/19 US OB SINGLE FETUS<14 [id number] PROCEDURE: US OB SINGLE FETUS <14 WKS. TECHNIQUE: Multiple real-time grayscale images were obtained over the gravid uterus in various projections. INDICATION: Vaginal bleeding. FINDINGS: There is an intrauterine gestational sac containing a pole. Gravity-rump length measurement is 20 mm consistent with 8 weeks 4 days gestation. heart rate was recorded at 169 bpm. There is a small area of hypoechogenicity adjacent to the gestational sac consistent with small perigestational sac bleed. Maternal adnexa are unremarkable. No adnexal mass or free fluid is seen. IMPRESSION: Single live IUP of approximately 8 weeks 4 days gestational age with estimated date of confinement sonographically of 04/16/2020. Note is made of a small perigestational sac bleed. Dictated on workstation # [id number] Dict: 09/09/19 1554 Trans: 09/09/19 1558 [id number] Interpreted by: MICHAEL MCCAIN MD Electronically signed by: Departure Impression Primary Impression: Subchorionic hemorrhage in first trimester Qualified Codes: O41.8X10 - Other specified disorders of amniotic fluid and membranes, first trimester, not applicable or unspecified; O46.8X1 - Other antepartum hemorrhage, first trimester Disposition: HOME, SELF-CARE Condition: Stable Departure-Patient Inst. Decision time for Depature: 16:03 Referrals: TERESITA PERDOMO DO (PCP/Family) Primary Care Physician Patient Instructions: Bleeding With Add. Discharge Instructions: . Follow-up with Dr. Fitzgerald on Thursday as you have scheduled already 2. Return to ER for any concerns 3. All discharge instructions reviewed with patient and/or family. Voiced understanding. KATIA CARDOZA APRN Sep 09, 2019 14:16
[2019-09-09 14:53] LABS: BASOPHILS % (AUTO) 0 % (0-10); EOSINOPHILS # (AUTO) 0.1 10^3/uL (0.0-0.3); EOSINOPHILS % (AUTO) 1 % (0-10); HEMATOCRIT 41 % (35-52); HEMOGLOBIN 13.7 G/DL (11.5-16.0); LYMPHOCYTES # (AUTO) 2.2 X 10^3 (1.0-4.0); LYMPHOCYTES % (AUTO) 27 % (12-44); MEAN CORPUSCULAR HEMOGLOBIN 30 PG (25-34); MEAN CORPUSCULAR HGB CONC 33 G/DL (32-36); MEAN CORPUSCULAR VOLUME 91 FL (80-99); MEAN PLATELET VOLUME 9.1 FL (7.4-10.4); MONOCYTES # (AUTO) 0.7 X 10^3 (0.0-1.0); MONOCYTES % (AUTO) 8 % (0-12); NEUTROPHILS # (AUTO) 5.3 X 10^3 (1.8-7.8); NEUTROPHILS % (AUTO) 64 % (42-75); PLATELET COUNT 291 10^3/uL (130-400); RED CELL DISTRIBUTION WIDTH 13.7 % (10.0-14.5); WHITE BLOOD COUNT 8.3 10^3/uL (4.3-11.0)
[2019-09-09 15:55] LABS: BILIRUBIN,URINE NEGATIVE (NEGATIVE); CLARITY,URINE CLEAR; COLOR,URINE YELLOW; GLUCOSE, URINE (UA) NEGATIVE (NEGATIVE); KETONES,URINE NEGATIVE (NEGATIVE); LEUKOCYTE ESTERASE ,URINE NEGATIVE (NEGATIVE); NITRITE,URINE NEGATIVE (NEGATIVE); PROTEIN,URINE NEGATIVE (NEGATIVE)
--- NOTE | 2019-09-09 15:59 | Diagnostic Imaging Report ---
PROCEDURE: US OB SINGLE FETUS <14 WKS. TECHNIQUE: Multiple real-time grayscale images were obtained over the gravid uterus in various projections. INDICATION: Vaginal bleeding. FINDINGS: There is an intrauterine gestational sac containing a pole. Geronimo-rump length measurement is 20 mm consistent with 8 weeks 4 days gestation. heart rate was recorded at 169 bpm. There is a small area of hypoechogenicity adjacent to the gestational sac consistent with small perigestational sac bleed. Maternal adnexa are unremarkable. No adnexal mass or free fluid is seen. IMPRESSION: Single live IUP of approximately 8 weeks 4 days gestational age with estimated date of confinement sonographically of 04/16/2020. Note is made of a small perigestational sac bleed. Dictated by: Dictated on workstation # [id number]
[2019-09-09 16:13] LABS: BACTERIA,URINE TRACE /HPF; WBC,URINE RARE /HPF
[2019-09-09 16:20] VITALS: BP 112/62
== END 2019-09-09 16:22 | disposition home or self-care (01) ==
LOC: EDUNIT# 13:35 → ER 13:36
DX: O46.91 Antepartum hemorrhage, unspecified, first trimester (principal); O99.341 Other mental disorders complicating pregnancy, first trimester; F41.9 Anxiety disorder, unspecified; Z3A.09 9 weeks gestation of pregnancy; Z88.0 Allergy status to penicillin; Z88.1 Allergy status to other antibiotic agents
CPT/HCPCS: 36415; 76801; 81000; 84702; 85025

== ENCOUNTER → 2019-12-14 | Outpatient (CLI) | payer OTHER ==
--- NOTE | 2019-12-14 17:05 | Diagnostic Imaging Report ---
INDICATION: patient, antepartum bleeding. TECHNIQUE: Multiple real-time grayscale images were obtained over the gravid uterus. COMPARISON: 09/09/2019. FINDINGS: A single live intrauterine fetus is seen measuring 22 weeks 5 days in size with sonographic EDC of 04/13/2020. This shows normal interval growth compared to the previous study. Fetus is in oblique transverse presentation. Amniotic fluid appears qualitatively normal. The placenta is grade 1 and fundal with no evidence of previa. Cervical length was 4.2 cm. survey showed normal-appearing kidneys and bladder and stomach. Normal-appearing intracranial ventricles and three-vessel cord were seen. Normal-appearing cord insertion was seen. spine and four-chamber heart view are not well evaluated due to position. The maternal adnexa could not be visualized. Biometrical measurements are as follows: Biparietal 5.62 cm, age 23 weeks 2 days. Head circumference 20.75 cm, age 22 weeks 6 days. Abdominal circumference 17.69 cm, age 22 weeks 5 days. Femur length 3.67 cm, age 21 weeks 5 days. Sonographic estimate age: 22 weeks 5 days. Sonographic estimated date of delivery: 04/13/2020. Estimated Weight: 491 gm (+/- 72 gm). LMP percentile: 36%. heart rate: 135 beats per minute. number: 1 of 1. IMPRESSION: Single live intrauterine fetus measuring 22 weeks 5 days in size with normal interval growth compared to the prior study. There was no detectable abnormality. Four-chamber heart view and spine views were not optimal due to position, consider limited follow-up as clinically warranted. Dictated by: Dictated on workstation # [id number]
== END ==
LOC: RAD 11:48
PROVIDERS: ATTEND Obstetrics & Gynecology
DX: O20.9 Hemorrhage in early pregnancy, unspecified (principal); Z3A.22 22 weeks gestation of pregnancy
CPT/HCPCS: 76805

== ENCOUNTER 2020-05-07 08:33 | Emergency (ER) | payer OTHER ==
[~2020-05-07] VITALS: Ht 149 cm; Wt 58.9 kg
[2020-05-07] MEDS ORDERED: ONDANSETRON 4 MG (ZOFRAN) ORAL DISSOLVE TAB PO STA (08:49)
[2020-05-07] MEDS ORDERED: hydrOXYzine (VISTARIL/ATARAX) 25 MG capsule/tablet PO ONE (09:00)
--- NOTE | 2020-05-07 09:04 | NUR ---
DR CONTRERAS REPORTS PT HAVING SEIZURE LIKE ACTIVITY WITH PURPOSEFUL MOVEMENT FOR APPX 30 SEC. STATES SHE STERNAL RUBBED HER DURING THE EPISODE AND THE PT GRABBED HER HAND.
[2020-05-07 09:19] LABS: BASOPHILS # (AUTO) 0.1 10^3/uL (0.0-0.1); BASOPHILS % (AUTO) 1 % (0-10); EOSINOPHILS # (AUTO) 0.1 10^3/uL (0.0-0.3); EOSINOPHILS % (AUTO) 2 % (0-10); HEMATOCRIT 43 % (35-52); HEMOGLOBIN 13.7 g/dL (11.5-16.0); LYMPHOCYTES # (AUTO) 3.5 10^3/uL (1.0-4.0); LYMPHOCYTES % (AUTO) 48 % (12-44); MEAN CORPUSCULAR HEMOGLOBIN 28 pg (25-34); MEAN CORPUSCULAR HGB CONC 32 g/dL (32-36); MEAN CORPUSCULAR VOLUME 86 fL (80-99); MEAN PLATELET VOLUME 8.7 fL (9.0-12.2); MONOCYTES # (AUTO) 0.6 10^3/uL (0.0-1.0); MONOCYTES % (AUTO) 8 % (0-12); NEUTROPHILS # (AUTO) 3.1 10^3/uL (1.8-7.8); NEUTROPHILS % (AUTO) 42 % (42-75); PLATELET COUNT 362 10^3/uL (130-400); WHITE BLOOD COUNT 7.3 10^3/uL (4.3-11.0)
--- NOTE | 2020-05-07 09:20 | NUR ---
POLICE HERE TO SEE PT AT THIS TIME
[2020-05-07 09:30] LABS: ALBUMIN 4.5 GM/DL (3.2-4.5); CHLORIDE 107 MMOL/L (98-107); SODIUM 144 MMOL/L (135-145)
[2020-05-07 09:31] LABS: CALCIUM 8.8 MG/DL (8.5-10.1)
[2020-05-07 09:32] LABS: GLUCOSE 82 MG/DL (70-105)
[2020-05-07 09:33] LABS: CARBON DIOXIDE 19 MMOL/L (21-32)
--- NOTE | 2020-05-07 09:33 | NUR ---
PT HAD ANOTHER 30 MINUTE EPISODE OF SEIZURE LIKE ACTIVITY AFTER OFFICER LEFT THE ROOM. PT ABLE TO TALK IN FULL SENTENCES ET STATES SHE WANTS TESTED. STATES THE LAST THING SHE REMEMBERS IS DRINKING SOMETHING HER SISTER IN LAW GAVE HER. NOTIFIED.
[2020-05-07 09:34] LABS: BILIRUBIN,TOTAL 0.7 MG/DL (0.1-1.0)
[2020-05-07 09:36] LABS: ALKALINE PHOSPHATASE 97 U/L (40-136); CREATININE SERUM 1.01 MG/DL (0.60-1.30); GFR ESTIMATED > 60
[2020-05-07 09:37] LABS: BUN/CREATININE RATIO 5
[2020-05-07 09:39] LABS: ALANINE AMINOTRANSFERASE 21 U/L (0-55)
[2020-05-07 10:01] LABS: BILIRUBIN,URINE NEGATIVE (NEGATIVE); CLARITY,URINE CLOUDY; COLOR,URINE YELLOW; GLUCOSE, URINE (UA) NEGATIVE (NEGATIVE); KETONES,URINE NEGATIVE (NEGATIVE); LEUKOCYTE ESTERASE ,URINE TRACE (NEGATIVE); NITRITE,URINE POSITIVE (NEGATIVE); PROTEIN,URINE NEGATIVE (NEGATIVE)
[2020-05-07 10:09] LABS: BACTERIA,URINE MODERATE /HPF; RBC,URINE RARE /HPF
--- NOTE | 2020-05-07 10:11 | ED General ---
General Chief Complaint: Neurological Problems Stated Complaint: SEIZURES Nursing Triage Note: POLICE CALLED TO THE HOUSE FOR A DOMESTIC. PT WAS BEING ARRESTED PT STARTED HAVING A SEIZURE. Nursing Sepsis Screen: No Definite Risk Source of Information: Patient (EXTREMELY DIFFICULT HISTORIAN), EMS History of Present Illness Date Seen by Provider: May 07, 2020 Time Seen by Provider: 08:37 Initial Comments PT ARRIVES VIA EMS FROM A LOCAL MOTEL PT WAS IN PROCESS OF BEING ARRESTED WHEN SHE BEGAN HAVING SEIZURE LIKE ACTIVITY PT EXTREMELY DRAMATIC, HYPERVENTILATING, ANXIOUS ON ARRIVAL PT MOUTHS "CAN'T BREATHE" BUT O2 SAT IS 100%--DOES ALL TALKING IN THIS MANNER UNABLE TO OBTAIN ANY INFORMATION ON ARRIVAL DUE TO HISTRIONIC BEHAVIOR LATER, PT STATES THAT SHE WAS OUT WITH HER SISTER IN LAW LAST NIGHT AND WAS IN A MOTEL STATES SHE WAS DRINKING "BUT ONLY HAD 3 SHOTS" SHE DENIES DRUG USE PT DELIVERED 03/18/20. NOT . HAS HAD A PERIOD SINCE DELIVERY BUT DOES NOT KNOW WHEN. PT IS NOT ON CONTROL. PT HAS HISTORY OF ANXIETY AND PTSD. STATES SHE TAKES ADDERALL AND HYROXYZINE, BUT HAS NOT HAD ANY TODAY. ALSO STATES SHE HAS NOT BEEN TAKING XANAX ANYMORE. PT SEES A COUNSELOR AT [facility] PCP:FORMERLY [facility] ALSO GOES TO [facility] Allergies and Home Medications Allergies Coded Allergies: Penicillins (Unverified Allergy, Mild, 04/11/09) amoxicillin (Unverified Allergy, Mild, UNKNOWN, 06/22/09) cefaclor (Unverified Allergy, Mild, 04/11/09) Home Medications Acetaminophen 325 Mg Capsule, 325 MG PO NEEDED, (Reported) Hydroxyzine Pamoate 25 Mg Capsule, 25 MG PO Q6H PRN for ANXIETY Prescribed by: VIVIAN NAIR on 12/03/16 1643 Nitrofurantoin Monohyd/M-Cryst 100 Mg Capsule, 1 TAB PO BID Prescribed by: BERNARD CONTRERAS on 05/07/20 1017 Patient Home Medication List Home Medication List Reviewed: Yes Review of Systems Review of Systems Constitutional: No fever Respiratory: see HPI Cardiovascular: chest pain Gastrointestinal: nausea Genitourinary: no symptoms reported Musculoskeletal: muscle cramps Psychiatric/Neurological: Anxiety Past Gknuuci-[id number]-Pspbkm Hx Past Med/Social Hx: Reviewed and Corrections made Patient Social History Alcohol Use: Occasionally Uses Number of Drinks Today: AA Alcohol Beverage of Choice: Beer Recreational Drug Use: Yes (UDS + FOR METH, BENZO'S, THC) Drug of Choice: UDS + METH, BENZO'S, THC Smoking Status: Current Everyday Smoker (1 PPD) 2nd Hand Smoke Exposure: No Recent Foreign Travel: No Contact w/Someone Who Travel: No Recent Infectious Disease Expo: No Recent Hopitalizations: No Immunizations Up To Date Tetanus Booster (TDap): More than 5yrs Seasonal Allergies Seasonal Allergies: No Past Medical History Surgeries: Yes ("BLADDER STRETCHED", LAPAROSCOPY, D&C) Abdominal, Section Respiratory: Yes Asthma Cardiac: Yes Heart Murmur, Palpitations Neurological: Yes Seizure Disorder Reproductive Disorders: Yes (ENDOMETRIOSIS) Female Reproductive Disorders: Endometriosis Sexually Transmitted Disease: Yes (PID) Genitourinary: Yes Kidney Infection, Kidney Stones, UTI-Chronic Gastrointestinal: No Musculoskeletal: No Endocrine: No HEENT: No Cancer: No Psychosocial: Yes Anxiety, PTSD Integumentary: No Blood Disorders: No Family Medical History No Pertinent Family Hx, Cancer Physical Exam Vital Signs Vital Signs - First Documented 05/07/20 08:33 Temp 36.5 Pulse 124 Resp 16 B/P (MAP) 126/93 (104) Pulse Ox 98 O2 Delivery Room Air Capillary Refill : Less Than 3 Seconds Height, Weight, BMI Height: 5'1.50" Weight: 204lbs. 2.0oz. 92.195453kc; 26.00 BMI Method:Stated General Appearance: Other (COMPLETELY HYSTERICAL, HYPERVENTILATING, THRASHING ALL OVER, WONT TALK--MOUTHS WORDS, EXTREMELY DRAMATIC. ) HEENT: PERRL/EOMI Neck: Normal Inspection Respiratory: Normal Breath Sounds, Other (HYPERVENTILATING) Cardiovascular: No Murmur, Tachycardia Gastrointestinal: Non Tender, Soft Extremity: Normal Range of Motion, No Pedal Edema Neurologic/Psychiatric: Alert, No Motor/Sensory Deficits, Other (BEHAVIOR ABOVE. ) Skin: Normal Color, Warm/Dry Progress/Results/Core Measures Suspected Sepsis Recent Fever Within 48 Hours: No Infection Criteria Present: None New/Unexplained Altered Menta: No Sepsis Screen: No Definite Risk SIRS Temperature: Pulse: 124 Respiratory Rate: 16 Laboratory Tests 05/07/20 09:07: White Blood Count 7.3 Blood Pressure 126 /93 Mean: 104 Laboratory Tests 05/07/20 09:07: Creatinine 1.01, Platelet Count 362, Total Bilirubin 0.7 Results/Orders Lab Results Laboratory Tests Test 05/07/20 09:07 05/07/20 09:55 Range/Units White Blood Count 7.3 4.3-11.0 10^3/uL Red Blood Count 4.95 3.80-5.11 10^6/uL Hemoglobin 13.7 11.5-16.0 g/dL Hematocrit 43 35-52 % Mean Corpuscular Volume 86 80-99 fL Mean Corpuscular Hemoglobin 28 25-34 pg Mean Corpuscular Hemoglobin Concent 32 32-36 g/dL Red Cell Distribution Width 15.7 H 10.0-14.5 % Platelet Count 362 130-400 10^3/uL Mean Platelet Volume 8.7 L 9.0-12.2 fL Immature Granulocyte % (Auto) 0 % Neutrophils (%) (Auto) 42 42-75 % Lymphocytes (%) (Auto) 48 H 12-44 % Monocytes (%) (Auto) 8 0-12 % Eosinophils (%) (Auto) 2 0-10 % Basophils (%) (Auto) 1 0-10 % Neutrophils # (Auto) 3.1 1.8-7.8 10^3/uL Lymphocytes # (Auto) 3.5 1.0-4.0 10^3/uL Monocytes # (Auto) 0.6 0.0-1.0 10^3/uL Eosinophils # (Auto) 0.1 0.0-0.3 10^3/uL Basophils # (Auto) 0.1 0.0-0.1 10^3/uL Immature Granulocyte # (Auto) 0.0 0.0-0.1 10^3/uL Sodium Level 144 135-145 MMOL/L Potassium Level 3.0 L 3.6-5.0 MMOL/L Chloride Level 107 98-107 MMOL/L Carbon Dioxide Level 19 L 21-32 MMOL/L Anion Gap 18 H 5-14 MMOL/L Blood Urea Nitrogen 5 L 7-18 MG/DL Creatinine 1.01 0.60-1.30 MG/DL Estimat Glomerular Filtration Rate > 60 BUN/Creatinine Ratio 5 Glucose Level 82 70-105 MG/DL Calcium Level 8.8 8.5-10.1 MG/DL Corrected Calcium 8.4 L 8.5-10.1 MG/DL Magnesium Level 2.0 1.6-2.4 MG/DL Total Bilirubin 0.7 0.1-1.0 MG/DL Aspartate Amino Transf (AST/SGOT) 22 5-34 U/L Alanine Aminotransferase (ALT/SGPT) 21 0-55 U/L Alkaline Phosphatase 97 40-136 U/L Total Protein 8.0 6.4-8.2 GM/DL Albumin 4.5 3.2-4.5 GM/DL Serum Test, Qualitative NEGATIVE NEGATIVE Serum Alcohol 83 H <10 MG/DL Urine Color YELLOW Urine Clarity CLOUDY Urine pH 6.0 5-9 Urine Specific Mitchell 1.010 L 1.016-1.022 Urine Protein NEGATIVE NEGATIVE Urine Glucose (UA) NEGATIVE NEGATIVE Urine Ketones NEGATIVE NEGATIVE Urine Nitrite POSITIVE H NEGATIVE Urine Bilirubin NEGATIVE NEGATIVE Urine Urobilinogen 1.0 < = 1.0 MG/DL Urine Leukocyte Esterase TRACE H NEGATIVE Urine RBC (Auto) 1+ H NEGATIVE Urine RBC RARE /HPF Urine WBC 5-10 H /HPF Urine Squamous Epithelial Cells 10-25 H /HPF Urine Crystals NONE /LPF Urine Bacteria MODERATE H /HPF Urine Casts NONE /LPF Urine Mucus NEGATIVE /LPF Urine Culture Indicated YES Urine Opiates Screen NEGATIVE NEGATIVE Urine Oxycodone Screen NEGATIVE NEGATIVE Urine Methadone Screen NEGATIVE NEGATIVE Urine Propoxyphene Screen NEGATIVE NEGATIVE Urine Barbiturates Screen NEGATIVE NEGATIVE Ur Tricyclic Antidepressants Screen NEGATIVE NEGATIVE Urine Phencyclidine Screen NEGATIVE NEGATIVE Urine Amphetamines Screen POSITIVE H NEGATIVE Urine Methamphetamines Screen POSITIVE H NEGATIVE Urine Benzodiazepines Screen POSITIVE H NEGATIVE Urine Cocaine Screen NEGATIVE NEGATIVE Urine Cannabinoids Screen POSITIVE H NEGATIVE My Orders Orders - BERNARD CONTRERAS DO Alcohol (05/07/20 08:42) Cbc With Automated Diff (05/07/20 08:42) Comprehensive Metabolic Panel (05/07/20 08:42) Drug Screen Stat (Urine) (05/07/20 08:42) Hcg,Qualitative Serum (05/07/20 08:42) Magnesium (05/07/20 08:42) Ua Culture If Indicated (05/07/20 08:42) Ekg Tracing (05/07/20 08:42) Monitor-Rhythm Ecg Trace Only (05/07/20 08:42) Ondansetron Oral Dissolve Tab (Zofran (05/07/20 08:49) Hydroxyzine Cap/Tab (Vistaril) (05/07/20 09:00) Urine Culture (05/07/20 09:55) Potassium Chloride (Tablet) (Klor Con Ta (05/07/20 10:30) Medications Given in ED Current Medications Medications Dose Ordered Sig/Zenaida Route Start Time Stop Time Status Last Admin Dose Admin Hydroxyzine Pamoate 50 mg ONCE ONCE PO 05/07/20 09:00 05/07/20 09:01 DC 05/07/20 09:13 50 MG Potassium Chloride 40 meq ONCE ONCE PO 05/07/20 10:30 05/07/20 10:31 DC 05/07/20 10:42 40 MEQ Vital Signs/I&O 05/07/20 05/07/20 08:33 10:43 Temp 36.5 Pulse 124 112 Resp 16 16 B/P (MAP) 126/93 (104) 130/73 Pulse Ox 98 99 O2 Delivery Room Air Room Air Capillary Refill : Less Than 3 Seconds Blood Pressure Mean: 104 Progress Note : Progress Note PT HAD A FEW, BRIEF EPISODES (APPROXIMATELY 30 SECONDS) OF SEIZURE-LIKE ACTIVITY, BUT WAS ABLE TO DISTRACT PT DURING EPISODES AND THEN THEY WOULD STOP, PT WAS NOT INCONTINENT AT ANY TIME, AND PT WAS NOT-POST ICTAL IN ANY WAY AFTERW ARDS. PT ABLE TO SIT UP, TALK,ETC. IMMEDIATELY AFTERWARD. [employer] CHIEF DIGITAL OFFICER HERE DURING STAY TO ISSUE PAPERS TO PT. ECG Initial ECG Impression Date: May 07, 2020 Initial ECG Impression Time: 08:39 Initial ECG Rate: 111 Initial ECG Rhythm: S.Tach Departure Impression Primary Impression: Anxiety Additional Impressions: Hyperventilation Pseudoseizure Conversion disorder Alcohol intoxication UTI (urinary tract infection) Hypokalemia Illicit drug use Disposition: 01 HOME, SELF-CARE Condition: Improved Departure-Patient Inst. Referrals: TERESITA PERDOMO DO (PCP/Family) Primary Care Physician [facility] Patient Instructions: Alcohol Abuse and Alcoholism (DC), Anxiety, Adult (DC), Conversion Disorder, Hyperventilation, Hypokalemia (DC), Urinary Tract Infections in Adults, Polysubstance Abuse (DC), Drug Abuse and Drug Addiction (DC) Add. Discharge Instructions: HOME, REST LOTS OF FLUIDS--WATER, BROTH, JELLO, GATORADE NO ALCOHOL!!! NO DRUGS!!! TAKE YOUR HYDROXYZINE 50 MG EVERY 4-6 HOURS NEEDED FOR ANXIETY. FOLLOW UP WITH [facility] THIS WEEK FOR FURTHER CARE All discharge instructions reviewed with patient and/or family. Voiced understanding. Scripts Nitrofurantoin Monohyd/M-Cryst (Macrobid 100 mg Capsule) 100 Mg Capsule 1 TAB PO BID, #20 CAP Prov: BERNARD CONTRERAS DO 05/07/20 BERNARD CONTRERAS DO May 07, 2020 10:11
[2020-05-07 10:15] LABS: AMPHETAMINE SCREEN, URINE POSITIVE (NEGATIVE); BARBITURATE SCREEN URINE NEGATIVE (NEGATIVE); BENZODIAZEPINES SCREEN URINE POSITIVE (NEGATIVE); CANNABINOID SCREEN, URINE POSITIVE (NEGATIVE); COCAINE SCREEN URINE NEGATIVE (NEGATIVE); METHADONE STAT NEGATIVE (NEGATIVE); METHAMPHETAMINE SCREEN URINE S POSITIVE (NEGATIVE); OPIATE SCREEN URINE NEGATIVE (NEGATIVE); OXYCODONE STAT NEGATIVE (NEGATIVE); PROPOXYPHENE STAT NEGATIVE (NEGATIVE); TRICYCLIC ANTIDEPRESSANTS SCRE NEGATIVE (NEGATIVE)
[2020-05-07] MEDS ORDERED: NITR-65 PO (10:17)
[2020-05-07] MEDS ORDERED: KCL 10 MEQ TAB (MICRO K) PO ONE (10:30)
--- NOTE | 2020-05-07 10:30 | NUR ---
PT HAD ANOTHER SEIZURE LIKE EPISODE WITH PURPOSEFUL MOVEMENT THAT LASTED APPX 30 MINS. PT ABLE TO TALK IN FULL SENTENCES RIGHT AFTER ACTIVITY. PT THINKS IT IS RELATED TO HER ANXIETY OR THE METH THAT SHE STATES SHE DOES NOT DUE. NOTIFIED OF THIS. PT ATTEMPTED TO CALL ON THE PHONE TO PICK HER UP ET HE REFUSES. [facility] CALLED FOR PT. PT A/O X3 ET ABLE TO AMBULATE WITHOUT DIFFICULTY UPON DISCHARGE.
[2020-05-07 10:43] VITALS: BP 130/73
== END 2020-05-07 10:43 | disposition home or self-care (01) ==
LOC: EDUNIT# 08:33 → ER 08:35
DX: F41.9 Anxiety disorder, unspecified (principal); R06.4 Hyperventilation; N39.0 Urinary tract infection, site not specified; E87.6 Hypokalemia; F19.90 Other psychoactive substance use, unspecified, uncomplicated; F44.5 Conversion disorder with seizures or convulsions; F10.129 Alcohol abuse with intoxication, unspecified; F17.200 Nicotine dependence, unspecified, uncomplicated; Z88.0 Allergy status to penicillin; Z88.1 Allergy status to other antibiotic agents; Z88.8 Allergy status to other drugs, medicaments and biological substances
CPT/HCPCS: 80053; 80306; 81000; 83735; 84703; 85025; 87077; 87088; 93005; 93041; 99284; G0480; 36415; 80320

== ENCOUNTER 2020-06-06 07:48 | Emergency (ER) | payer OTHER ==
[~2020-06-06] VITALS: Ht 149.8 cm; Wt 72.6 kg
[2020-06-06] MEDS ORDERED: NS IV 1000 ML 1,000 ML IV STA (07:54)
[2020-06-06 08:03] LABS: HEMOGLOBIN 13.4 g/dL (11.5-16.0); MEAN PLATELET VOLUME 8.8 fL (9.0-12.2); WHITE BLOOD COUNT 8.1 10^3/uL (4.3-11.0)
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
[2020-06-06 08:10] LABS: ALBUMIN 4.2 GM/DL (3.2-4.5); CHLORIDE 110 MMOL/L (98-107); POTASSIUM 3.5 MMOL/L (3.6-5.0); SODIUM 145 MMOL/L (135-145)
[2020-06-06 08:11] LABS: CALCIUM 8.3 MG/DL (8.5-10.1)
[2020-06-06 08:13] LABS: GLUCOSE 88 MG/DL (70-105); TOTAL PROTEIN 7.6 GM/DL (6.4-8.2)
[2020-06-06 08:14] LABS: BILIRUBIN,TOTAL 0.3 MG/DL (0.1-1.0); CARBON DIOXIDE 21 MMOL/L (21-32)
[2020-06-06] MEDS ORDERED: NS 100 ML (IVPB) BAG IV ONE (08:15)
[2020-06-06] MEDS ORDERED: IOHEXOL 350 MG/ML 100 ML (OMNIPAQUE 350) VIAL IV ONE (08:15)
[2020-06-06] MEDS ORDERED: HOLD METFORMIN - RECEIVED CONTRAST 20 ML VIAL IV SCH (08:15)
[2020-06-06] MEDS ORDERED: CATHETER FLUSH 10 ML SYR IV PRN (08:15)
[2020-06-06 08:16] LABS: ALKALINE PHOSPHATASE 90 U/L (40-136); CREATININE SERUM 0.83 MG/DL (0.60-1.30); GFR ESTIMATED > 60
[2020-06-06 08:17] LABS: BUN/CREATININE RATIO 8
[2020-06-06 08:18] LABS: BILIRUBIN,DIRECT 0.1 MG/DL (0.0-0.3); BILIRUBIN,INDIRECT 0.2 MG/DL
[2020-06-06 08:19] LABS: ALANINE AMINOTRANSFERASE 54 U/L (0-55)
[2020-06-06] MEDS ORDERED: NS IV 1000 ML 1,000 ML IV SCH (08:23)
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
[2020-06-06 09:59] LABS: BILIRUBIN,URINE NEGATIVE (NEGATIVE); CLARITY,URINE CLEAR; COLOR,URINE YELLOW; GLUCOSE, URINE (UA) NEGATIVE (NEGATIVE); KETONES,URINE NEGATIVE (NEGATIVE); LEUKOCYTE ESTERASE ,URINE NEGATIVE (NEGATIVE); NITRITE,URINE NEGATIVE (NEGATIVE); PH,URINE 5.5 (5-9); PROTEIN,URINE NEGATIVE (NEGATIVE)
[2020-06-06 10:14] LABS: BACTERIA,URINE NEGATIVE /HPF; WBC,URINE RARE /HPF
[2020-06-06 10:27] LABS: AMPHETAMINE SCREEN, URINE POSITIVE (NEGATIVE); BARBITURATE SCREEN URINE NEGATIVE (NEGATIVE); BENZODIAZEPINES SCREEN URINE NEGATIVE (NEGATIVE); CANNABINOID SCREEN, URINE POSITIVE (NEGATIVE); COCAINE SCREEN URINE NEGATIVE (NEGATIVE); METHADONE STAT NEGATIVE (NEGATIVE); METHAMPHETAMINE SCREEN URINE S POSITIVE (NEGATIVE); OPIATE SCREEN URINE NEGATIVE (NEGATIVE); OXYCODONE STAT NEGATIVE (NEGATIVE); PROPOXYPHENE STAT NEGATIVE (NEGATIVE); TRICYCLIC ANTIDEPRESSANTS SCRE NEGATIVE (NEGATIVE)
[2020-06-06] MEDS ORDERED: CYCL10TA9 PO (10:51)
[2020-06-06 11:00] VITALS: BP 90/65
== END 2020-06-06 11:00 | disposition home or self-care (01) ==
LOC: EDUNIT# 07:48 → ER 07:48
DX: R51.9 Headache, unspecified (principal); M25.561 Pain in right knee; F10.129 Alcohol abuse with intoxication, unspecified; F41.9 Anxiety disorder, unspecified; R40.2410 Glasgow coma scale score 13-15, unspecified time; Z80.9 Family history of malignant neoplasm, unspecified; Z88.0 Allergy status to penicillin; Z88.1 Allergy status to other antibiotic agents; Z88.8 Allergy status to other drugs, medicaments and biological substances
CPT/HCPCS: 70450; 71045; 72125; 73562; 74177; 80048; 80076; 80306; 81000; 84703; 85027; 93041; 99284; G0480; 36415; 80320

== ENCOUNTER 2020-12-26 14:26 | Emergency (ER) | payer OTHER ==
[~2020-12-26] VITALS: Ht 149 cm; Wt 59.0 kg
[~2020-12-26 14:26] MED LIST changes: +CYCL10TA9 PO
[2020-12-26 15:11] LABS: AMPHETAMINE SCREEN, URINE POSITIVE (NEGATIVE); BARBITURATE SCREEN URINE NEGATIVE (NEGATIVE); BENZODIAZEPINES SCREEN URINE POSITIVE (NEGATIVE); CANNABINOID SCREEN, URINE POSITIVE (NEGATIVE); COCAINE SCREEN URINE NEGATIVE (NEGATIVE); METHADONE STAT NEGATIVE (NEGATIVE); METHAMPHETAMINE SCREEN URINE S POSITIVE (NEGATIVE); OPIATE SCREEN URINE NEGATIVE (NEGATIVE); OXYCODONE STAT NEGATIVE (NEGATIVE); PROPOXYPHENE STAT NEGATIVE (NEGATIVE); TRICYCLIC ANTIDEPRESSANTS SCRE NEGATIVE (NEGATIVE)
--- NOTE | 2020-12-26 15:24 | ED General ---
General Chief Complaint: Detox Stated Complaint: DETOX,POSS Nursing Triage Note: AMB TO ROOM WAS SENT BY LESLIE MILAGROS VALADEZ FOR DETOX. WAS TOLD BY MILAGROS THAT SHE NEEDS FLUIDS TO CLEAN HER BODY OF THE ALCOHOL.AND MEDS. WHEN ASKED IF SHE WAS READY FOR DETOX SHE STATED YES. HAS BUT HER KIDS IN THE CUSTODY OF HER FAMILY. LAST DRANK LAST NIGHT. USUALLY DRINKS A LITER A DAY. Nursing Sepsis Screen: No Definite Risk Source of Information: Patient Exam Limitations: No Limitations History of Present Illness Date Seen by Provider: Dec 26, 2020 Allergies and Home Medications Allergies Coded Allergies: Penicillins (Unverified Allergy, Mild, 04/11/09) amoxicillin (Unverified Allergy, Mild, UNKNOWN, 06/22/09) cefaclor (Unverified Allergy, Mild, 04/11/09) Home Medications Acetaminophen 325 Mg Capsule, 325 MG PO NEEDED, (Reported) Cyclobenzaprine HCl 10 Mg Tablet, 10 MG PO Q8H PRN for SPASMS Prescribed by: REGAN LOWE on 06/06/20 1051 Hydroxyzine Pamoate 25 Mg Capsule, 25 MG PO Q6H PRN for ANXIETY Prescribed by: VIVIAN NAIR on 12/03/16 1643 Metronidazole 500 Mg Tablet, 500 MG PO BID Prescribed by: MANUEL KHALIL on 12/26/20 1552 Nitrofurantoin Monohyd/M-Cryst 100 Mg Capsule, 1 TAB PO BID Prescribed by: BERNARD CONTRERAS on 05/07/20 1017 Past Vhyuozg-Eozabf-Vdknil Hx Patient Social History Alcohol Use: Regular Use Number of Drinks Today: CC Alcohol Beverage of Choice: Beer, Cheap Liquor Drug of Choice: UDS + METH, BENZO'S, THC Smoking Status: Never a Smoker 2nd Hand Smoke Exposure: No Recent Infectious Disease Expo: No Recent Hopitalizations: No Immunizations Up To Date Tetanus Booster (TDap): More than 5yrs Seasonal Allergies Seasonal Allergies: No Past Medical History Surgeries: Yes ("BLADDER STRETCHED", LAPAROSCOPY, D&C) Abdominal, Section Respiratory: Yes Asthma Cardiac: Yes Heart Murmur, Palpitations Neurological: Yes Seizure Disorder : No Reproductive Disorders: Yes (ENDOMETRIOSIS) Female Reproductive Disorders: Endometriosis Sexually Transmitted Disease: Yes (PID) Genitourinary: Yes Kidney Infection, Kidney Stones, UTI-Chronic Gastrointestinal: No Musculoskeletal: No Endocrine: No HEENT: No Cancer: No Psychosocial: Yes Anxiety, PTSD Integumentary: No Blood Disorders: No Family Medical History No Pertinent Family Hx, Cancer Physical Exam Vital Signs Vital Signs - First Documented 12/26/20 14:31 Temp 36.7 Pulse 82 Resp 18 B/P (MAP) 118/77 (91) Pulse Ox 98 O2 Delivery Room Air Capillary Refill : Less Than 3 Seconds Height, Weight, BMI Height: 5'1.50" Weight: 204lbs. 2.0oz. 92.998754jz; 26.00 BMI Method:Stated Progress/Results/Core Measures Suspected Sepsis Recent Fever Within 48 Hours: No Infection Criteria Present: None New/Unexplained Altered Menta: No Sepsis Screen: No Definite Risk SIRS Temperature: Pulse: 82 Respiratory Rate: 18 Blood Pressure 118 /77 Mean: 91 Results/Orders Lab Results Laboratory Tests Test 12/26/20 14:48 12/26/20 15:15 Range/Units Urine Opiates Screen NEGATIVE NEGATIVE Urine Oxycodone Screen NEGATIVE NEGATIVE Urine Methadone Screen NEGATIVE NEGATIVE Urine Propoxyphene Screen NEGATIVE NEGATIVE Urine Barbiturates Screen NEGATIVE NEGATIVE Ur Tricyclic Antidepressants Screen NEGATIVE NEGATIVE Urine Phencyclidine Screen NEGATIVE NEGATIVE Urine Amphetamines Screen POSITIVE H NEGATIVE Urine Methamphetamines Screen POSITIVE H NEGATIVE Urine Benzodiazepines Screen POSITIVE H NEGATIVE Urine Cocaine Screen NEGATIVE NEGATIVE Urine Cannabinoids Screen POSITIVE H NEGATIVE Serum Test, Qualitative NEGATIVE NEGATIVE Serum Alcohol < 10 <10 MG/DL Micro Results Microbiology 12/26/20 Genital Culture, Resulted Pending 12/26/20 Wet Prep - Final, Resulted My Orders Orders - MANUEL KHALIL APRN Alcohol (12/26/20 14:31) Drug Screen Stat (Urine) (12/26/20 14:31) Hcg,Qualitative Serum (12/26/20 14:31) Wet Prep (12/26/20 14:37) Neisseria Gonorrhea Swab (12/26/20 14:37) Genital Culture (12/26/20 14:37) Chlamydia Trachomatis Swab (12/26/20 14:37) Ua Culture If Indicated (12/26/20 15:38) Azithromycin Tablet (Zithromax Tablet) (12/26/20 16:00) Ceftriaxone (Rocephin) (12/26/20 16:00) Lidocaine 1% Inj 20 Ml (Xylocaine 1% Inj (12/26/20 16:00) Lorazepam Tablet (Ativan Tablet) (12/26/20 16:00) Ceftriaxone (Rocephin) (12/26/20 15:59) Lidocaine 1% Inj 20 Ml (Xylocaine 1% Inj (12/26/20 15:59) Medications Given in ED Current Medications Medications Dose Ordered Sig/Zenaida Route Start Time Stop Time Status Last Admin Dose Admin Azithromycin 1,000 mg ONCE ONCE PO 12/26/20 16:00 12/26/20 16:01 DC 12/26/20 16:10 1,000 MG Ceftriaxone Sodium 1,000 mg ONCE ONCE IM 12/26/20 16:00 12/26/20 16:09 DC 12/26/20 16:09 1,000 MG Lidocaine HCl 2.1 ml ONCE ONCE INJ 12/26/20 16:00 12/26/20 16:09 DC 12/26/20 16:10 2.1 ML Vital Signs/I&O 12/26/20 14:31 Temp 36.7 Pulse 82 Resp 18 B/P (MAP) 118/77 (91) Pulse Ox 98 O2 Delivery Room Air Capillary Refill : Less Than 3 Seconds Blood Pressure Mean: 91 Departure Impression Primary Impression: Bacterial vaginosis Additional Impressions: Polysubstance abuse Alcohol abuse Disposition: HOME, SELF-CARE Condition: Stable Departure-Patient Inst. Decision time for Depature: 15:52 Referrals: [facility] [place] ([place]/Family) Primary Care Physician Patient Instructions: Alcohol Abuse and Alcoholism (DC), Bacterial Vaginosis Add. Discharge Instructions: Plan: 1. Take antibiotics as directed and complete full course. 2. Keep follow up with [facility] as directed for your alcohol detox. 3. Your test was negative today. 4. The hospital will call you if any additional treatment is needed. 5. Return to ER for any new, concerning, or worsening symptoms. 6. Take multivitamin, B-complex, and folic acid daily. All discharge instructions reviewed with patient and/or family. Voiced und erstanding. Scripts Metronidazole (Flagyl) 500 Mg Tablet 500 MG PO BID for 7 Days, #14 TAB 0 Refills Prov: MANUEL KHALIL HEAD OF ETHICS AND COMPLIANCE 12/26/20 MANUEL KHALIL HEAD OF ETHICS AND COMPLIANCE Dec 26, 2020 15:24
[2020-12-26] MEDS ORDERED: METR500T PO (15:52)
[2020-12-26] MEDS ORDERED: LIDOCAINE 1% INJ 20 ML 20 ML VIAL ONE (15:59)
[2020-12-26] MEDS ORDERED: cefTRIAXone 1,000 MG VIAL ONE (15:59)
[2020-12-26] MEDS ORDERED: LIDOCAINE 1% INJ 20 ML 20 ML VIAL INJ ONE (16:00)
[2020-12-26] MEDS ORDERED: AZITHROMYCIN 250 MG TAB (ZITHROMAX) PO ONE (16:00)
[2020-12-26] MEDS ORDERED: cefTRIAXone 1,000 MG VIAL IM ONE (16:00)
[2020-12-26] MEDS ORDERED: LORazepam 0.5 MG (ATIVAN) TABLET PO STA (16:00)
[2020-12-26 16:11] LABS: CLARITY,URINE CLOUDY; GLUCOSE, URINE (UA) NEGATIVE (NEGATIVE); KETONES,URINE 1+ (NEGATIVE); LEUKOCYTE ESTERASE ,URINE TRACE (NEGATIVE); NITRITE,URINE POSITIVE (NEGATIVE); PH,URINE 7.5 (5-9); PROTEIN,URINE 1+ (NEGATIVE)
[2020-12-26 16:36] LABS: BACTERIA,URINE LARGE /HPF; BILIRUBIN,URINE 1+ (NEGATIVE); COLOR,URINE ORANGE; RBC,URINE 0-2 /HPF
[2020-12-26 16:41] VITALS: BP 127/64
== END 2020-12-26 16:41 | disposition home or self-care (01) ==
LOC: EDUNIT# 14:26 → ER 14:28
DX: F10.10 Alcohol abuse, uncomplicated (principal); N76.0 Acute vaginitis; F19.90 Other psychoactive substance use, unspecified, uncomplicated; J45.909 Unspecified asthma, uncomplicated; F41.9 Anxiety disorder, unspecified; Y90.0 Blood alcohol level of less than 20 mg/100 ml; Z87.42 Personal history of other diseases of the female genital tract; Z88.0 Allergy status to penicillin; Z88.1 Allergy status to other antibiotic agents
CPT/HCPCS: 80306; 81000; 84703 ×2; 87070; 87077; 87088; 87205; 87210; 87491; 87591; 99284; G0480; 36415; 80320

== ENCOUNTER 2021-01-29 11:53 | Emergency (ER) | payer SELFPAY ==
[~2021-01-29] VITALS: Ht 147 cm; Wt 60.0 kg
[~2021-01-29 11:53] MED LIST changes: -SULF1TAB35 PO; +SULF1TAB38 PO
[2021-01-29] MEDS ORDERED: ACETAMINOPHEN 500 MG TAB (TYLENOL) PO STA (12:39)
[2021-01-29] MEDS ORDERED: LACTATED RINGERS 1,000 ML IV ONE (12:45)
[2021-01-29 12:57] LABS: BASOPHILS % (AUTO) 0 % (0-10); EOSINOPHILS % (AUTO) 0 % (0-10); HEMATOCRIT 39 % (35-52); HEMOGLOBIN 12.9 g/dL (11.5-16.0); LYMPHOCYTES # (AUTO) 1.1 10^3/uL (1.0-4.0); LYMPHOCYTES % (AUTO) 18 % (12-44); MEAN CORPUSCULAR HEMOGLOBIN 30 pg (25-34); MEAN CORPUSCULAR HGB CONC 33 g/dL (32-36); MEAN CORPUSCULAR VOLUME 93 fL (80-99); MEAN PLATELET VOLUME 9.7 fL (9.0-12.2); MONOCYTES % (AUTO) 16 % (0-12); NEUTROPHILS # (AUTO) 4.1 10^3/uL (1.8-7.8); NEUTROPHILS % (AUTO) 66 % (42-75); PLATELET COUNT 224 10^3/uL (130-400); WHITE BLOOD COUNT 6.2 10^3/uL (4.3-11.0)
[2021-01-29 13:06] LABS: ALBUMIN 4.1 GM/DL (3.2-4.5); CHLORIDE 103 MMOL/L (98-107); POTASSIUM 3.3 MMOL/L (3.6-5.0); SODIUM 139 MMOL/L (135-145)
[2021-01-29 13:08] LABS: CALCIUM 9.1 MG/DL (8.5-10.1)
[2021-01-29 13:09] LABS: GLUCOSE 95 MG/DL (70-105); TOTAL PROTEIN 7.9 GM/DL (6.4-8.2)
--- NOTE | 2021-01-29 13:09 | Diagnostic Imaging Report ---
INDICATION: COVID patient. The lungs are clear. No failure, effusion or pneumothorax. No abnormal groundglass density. Lung volumes symmetric and normal. No pleural pathology. No free air beneath the diaphragms. IMPRESSION: Normal frontal chest. Dictated by: Dictated on workstation # [id number]
[2021-01-29 13:10] LABS: CARBON DIOXIDE 23 MMOL/L (21-32)
[2021-01-29 13:11] LABS: BILIRUBIN,TOTAL 1.5 MG/DL (0.1-1.0)
[2021-01-29 13:12] LABS: ALKALINE PHOSPHATASE 103 U/L (40-136); CREATININE SERUM 0.76 MG/DL (0.60-1.30); GFR ESTIMATED > 60
[2021-01-29 13:13] LABS: BUN/CREATININE RATIO 9
[2021-01-29 13:15] LABS: ALANINE AMINOTRANSFERASE 58 U/L (0-55)
[2021-01-29 13:16] LABS: ERYTHROCYTE SEDIMENTATION RATE 66 MM/HR (0-20)
--- NOTE | 2021-01-29 13:20 | ED General ---
General Chief Complaint: Cough/Cold/Flu Symptoms Stated Complaint: COVID + Nursing Triage Note: PT CO OF TESTING + FOR COVID YESTERDAY AT [facility]. PT CO OF L SIDED ABD PAIN 04/21. STATES HAS HAD RECENT MISCARRIAGE 01/21/21 BY BLOOD WORK, STATES HAS HAD NO BLEEDING OR FURTHER CHECK UP FOR MISCARRIAGE. PT STATES HAS BEEN FEELING SICK FOR APPROX 12DAYS Allergies and Home Medications Allergies Coded Allergies: Penicillins (Unverified Allergy, Mild, 04/11/09) amoxicillin (Unverified Allergy, Mild, UNKNOWN, 06/22/09) cefaclor (Unverified Allergy, Mild, 04/11/09) Home Medications Acetaminophen 325 Mg Capsule, 325 MG PO NEEDED, (Reported) Cyclobenzaprine HCl 10 Mg Tablet, 10 MG PO Q8H PRN for SPASMS Prescribed by: REGAN LOWE on 06/06/20 1051 Hydroxyzine Pamoate 25 Mg Capsule, 25 MG PO Q6H PRN for ANXIETY Prescribed by: VIVIAN NAIR on 12/03/16 1643 Metronidazole 500 Mg Tablet, 500 MG PO BID Prescribed by: MANUEL KHALIL on 12/26/20 1552 Nitrofurantoin Monohyd/M-Cryst 100 Mg Capsule, 1 TAB PO BID Prescribed by: BERNARD CONTRERAS on 05/07/20 1017 Past Fsdsttz-Lixhmk-Atlcnc Hx Patient Social History Tobacco Use?: No Substance use?: Yes Substance type: Marijuana Alcohol Use?: Yes Alcohol type: Hard Liquor Alcohol Frequency: Daily Pt feels they are or have been: No Immunizations Up To Date Tetanus Booster (TDap): More than 5yrs Seasonal Allergies Seasonal Allergies: No Past Medical History Surgery/Hospitalization HX: LAP, ABD AND D D AND C Surgeries: Yes ("BLADDER STRETCHED", LAPAROSCOPY, D&C) Abdominal, Section Respiratory: Yes Asthma Cardiac: Yes Heart Murmur, Palpitations Neurological: Yes Seizure Disorder Reproductive Disorders: Yes (ENDOMETRIOSIS) Female Reproductive Disorders: Endometriosis Sexually Transmitted Disease: Yes (PID) Genitourinary: Yes Kidney Infection, Kidney Stones, UTI-Chronic Gastrointestinal: No Musculoskeletal: No Endocrine: No HEENT: No Cancer: No Psychosocial: Yes Anxiety, PTSD Integumentary: No Blood Disorders: No Family Medical History No Pertinent Family Hx, Cancer Physical Exam Vital Signs Vital Signs - First Documented 01/29/21 12:25 Temp 38.2 Pulse 112 Resp 18 B/P (MAP) 118/74 (89) Pulse Ox 98 Capillary Refill : Less Than 3 Seconds Height, Weight, BMI Height: 5'1.50" Weight: 204lbs. 2.0oz. 92.942888aj; 27.00 BMI Method:Stated Focused Exam Lactate Level 01/29/21 12:40: Lactic Acid Level 0.69 Lactic Acid Level Laboratory Tests Test 01/29/21 12:40 Lactic Acid Level 0.69 MMOL/L (0.50-2.00) Progress/Results/Core Measures Suspected Sepsis SIRS Temperature: Pulse: 112 Respiratory Rate: 18 Laboratory Tests 01/29/21 12:40: White Blood Count 6.2 Blood Pressure 118 /74 Mean: 89 01/29/21 12:40: Lactic Acid Level 0.69 Laboratory Tests 01/29/21 12:40: Creatinine 0.76, Platelet Count 224, Total Bilirubin 1.5H Results/Orders Lab Results Laboratory Tests Test 01/29/21 12:40 Range/Units White Blood Count 6.2 4.3-11.0 10^3/uL Red Blood Count 4.26 3.80-5.11 10^6/uL Hemoglobin 12.9 11.5-16.0 g/dL Hematocrit 39 35-52 % Mean Corpuscular Volume 93 80-99 fL Mean Corpuscular Hemoglobin 30 25-34 pg Mean Corpuscular Hemoglobin Concent 33 32-36 g/dL Red Cell Distribution Width 14.4 10.0-14.5 % Platelet Count 224 130-400 10^3/uL Mean Platelet Volume 9.7 9.0-12.2 fL Immature Granulocyte % (Auto) 0 % Neutrophils (%) (Auto) 66 42-75 % Lymphocytes (%) (Auto) 18 12-44 % Monocytes (%) (Auto) 16 H 0-12 % Eosinophils (%) (Auto) 0 0-10 % Basophils (%) (Auto) 0 0-10 % Neutrophils # (Auto) 4.1 1.8-7.8 10^3/uL Lymphocytes # (Auto) 1.1 1.0-4.0 10^3/uL Monocytes # (Auto) 1.0 0.0-1.0 10^3/uL Eosinophils # (Auto) 0.0 0.0-0.3 10^3/uL Basophils # (Auto) 0.0 0.0-0.1 10^3/uL Immature Granulocyte # (Auto) 0.0 0.0-0.1 10^3/uL Erythrocyte Sedimentation Rate 66 H 0-20 MM/HR Sodium Level 139 135-145 MMOL/L Potassium Level 3.3 L 3.6-5.0 MMOL/L Chloride Level 103 98-107 MMOL/L Carbon Dioxide Level 23 21-32 MMOL/L Anion Gap 13 5-14 MMOL/L Blood Urea Nitrogen 7 7-18 MG/DL Creatinine 0.76 0.60-1.30 MG/DL Estimat Glomerular Filtration Rate > 60 BUN/Creatinine Ratio 9 Glucose Level 95 70-105 MG/DL Lactic Acid Level 0.69 0.50-2.00 MMOL/L Calcium Level 9.1 8.5-10.1 MG/DL Corrected Calcium 9.0 8.5-10.1 MG/DL Total Bilirubin 1.5 H 0.1-1.0 MG/DL Aspartate Amino Transf (AST/SGOT) 44 H 5-34 U/L Alanine Aminotransferase (ALT/SGPT) 58 H 0-55 U/L Alkaline Phosphatase 103 40-136 U/L Lactate Dehydrogenase 221 H 125-220 U/L C-Reactive Protein High Sensitivity 19.71 H 0.00-0.50 MG/DL Total Protein 7.9 6.4-8.2 GM/DL Albumin 4.1 3.2-4.5 GM/DL Procalcitonin 0.16 H <0.10 NG/ML Human Chorionic Gonadotropin, Quant < 5 <5 MIU/ML Serum Test, Qualitative NEGATIVE NEGATIVE My Orders Orders - BERNARD CONTRERAS DO Chest 1 View, Ap/Pa Only (01/29/21 12:18) Ed Iv/Invasive Line Start (01/29/21 12:39) O2 (01/29/21 12:39) Monitor-Rhythm Ecg Trace Only (01/29/21 12:39) Cbc With Automated Diff (01/29/21 12:39) Comprehensive Metabolic Panel (01/29/21 12:39) Hcg,Qualitative Serum (01/29/21 12:39) Lactic Acid Analyzer (01/29/21 12:39) Blood Culture (01/29/21 12:39) Ed Iv/Invasive Line Start (01/29/21 12:39) Lactated Ringers (Lr 1000 Ml Iv Solution (01/29/21 12:45) Procalcitonin (Pct) (01/29/21 12:39) Hs C Reactive Protein (01/29/21 12:39) Erythrocyte Sedimentation Rate (01/29/21 12:39) LDH (01/29/21 12:39) Acetaminophen Tablet (Tylenol Tablet) (01/29/21 12:39) Hcg,Quantitative (01/29/21 12:44) Alcohol (01/29/21 13:19) Amylase (01/29/21 13:19) Drug Screen Stat (Urine) (01/29/21 13:19) Lipase (01/29/21 13:19) Medications Given in ED Current Medications Medications Dose Ordered Sig/Zenaida Route Start Time Stop Time Status Last Admin Dose Admin Lactated Ringer's 1,000 ml @ 0 mls/hr Q0M ONCE IV 01/29/21 12:45 01/29/21 12:46 DC 01/29/21 13:12 1,000 MLS/HR Vital Signs/I&O 01/29/21 12:25 Temp 38.2 Pulse 112 Resp 18 B/P (MAP) 118/74 (89) Pulse Ox 98 Capillary Refill : Less Than 3 Seconds Blood Pressure Mean: 89 Diagnostic Imaging Comments CXR--PER RADIOLOGIST REPORT AT 1320 INDICATION: COVID patient. The lungs are clear. No failure, effusion or pneumothorax. No abnormal groundglass density. Lung volumes symmetric and normal. No pleural pathology. No free air beneath the diaphragms. IMPRESSION: Normal frontal chest. Reviewed: Reviewed by Me Departure Departure-Patient Inst. Referrals: [facility] (PCP/Family) Primary Care Physician BERNARD CONTRERAS DO Jan 29, 2021 13:20
[2021-01-29 13:42] LABS: AMYLASE 35 U/L (25-125)
[2021-01-29 13:50] LABS: LIPASE 17 U/L (8-78)
[2021-01-29 14:05] LABS: AMPHETAMINE SCREEN, URINE POSITIVE (NEGATIVE); BARBITURATE SCREEN URINE NEGATIVE (NEGATIVE); BENZODIAZEPINES SCREEN URINE POSITIVE (NEGATIVE); CANNABINOID SCREEN, URINE POSITIVE (NEGATIVE); COCAINE SCREEN URINE NEGATIVE (NEGATIVE); METHADONE STAT NEGATIVE (NEGATIVE); METHAMPHETAMINE SCREEN URINE S POSITIVE (NEGATIVE); OPIATE SCREEN URINE NEGATIVE (NEGATIVE); OXYCODONE STAT NEGATIVE (NEGATIVE); PROPOXYPHENE STAT NEGATIVE (NEGATIVE); TRICYCLIC ANTIDEPRESSANTS SCRE NEGATIVE (NEGATIVE)
[2021-01-29 14:31] VITALS: BP 136/97
== END 2021-01-29 14:36 ==
LOC: EDUNIT# 11:53 → ER 11:55
DX: U07.1 COVID-19 (principal); F41.9 Anxiety disorder, unspecified; Z79.899 Other long term (current) drug therapy
CPT/HCPCS: 71045; 80053; 80306; 82150; 83605; 83615; 83690; 84145; 84702; 84703; 85025; 85652; 86141; 87040; 93041; 99284; G0480; 36415; 80320

== ENCOUNTER 2021-02-26 15:26 | Emergency (ER) | payer SELFPAY ==
[~2021-02-26] VITALS: Ht 147 cm; Wt 63.5 kg
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
[2021-02-26] MEDS ORDERED: LIDOCAINE 1% INJ 20 ML 20 ML VIAL INJ ONE ×2 (16:45→18:00)
[2021-02-26] MEDS ORDERED: TETANUS,DIPTH,PERTUSS P/F (BOOSTRIX) 0.5 ML VIAL IM ONE (16:45)
--- NOTE | 2021-02-26 16:55 | Diagnostic Imaging Report ---
EXAMINATION: Right foot, single view. Right great toe radiographs, 2 additional views. COMPARISON: None. HISTORY: 30-year-old female, right great toe pain. Injury. FINDINGS: There is a comminuted displaced intra-articular fracture involving the base of the first distal phalanx. There is no gross proximal to distal offset of the articulating surface. There is no identified radiopaque foreign body. There is no subluxation or dislocation. There is adjacent soft tissue swelling. IMPRESSION: Comminuted displaced intra-articular fracture of the base of the first distal phalanx without gross proximal to distal offset of the articulating surface. Dictated by: Dictated on workstation # [id number]
[2021-02-26] MEDS ORDERED: cefTRIAXone 1,000 MG VIAL IM ONE (18:00)
[2021-02-26] MEDS ORDERED: ACHD5005 PO (18:07)
[2021-02-26] MEDS ORDERED: DOXY100T2 PO (18:07)
[2021-02-26] MEDS ORDERED: FLUC200T5 PO (18:07)
[2021-02-26] MEDS ORDERED: SULF1TAB38 PO (18:07)
[2021-02-26 18:16] VITALS: BP 116/78
== END 2021-02-26 18:15 | disposition home or self-care (01) ==
LOC: EDUNIT# 15:26 → ER 15:29
DX: S92.421B Displaced fracture of distal phalanx of right great toe, initial encounter for open fracture (principal); T79.8XXA Other early complications of trauma, initial encounter; J45.909 Unspecified asthma, uncomplicated; F41.9 Anxiety disorder, unspecified; Z23 Encounter for immunization; Z79.899 Other long term (current) drug therapy; W20.8XXA Other cause of strike by thrown, projected or falling object, initial encounter
CPT/HCPCS: 10060; 73660; 90715

== ENCOUNTER 2021-03-27 15:16 | Emergency (ER) | payer SELFPAY ==
[~2021-03-27] VITALS: Ht 154.9 cm; Wt 63.5 kg
[~2021-03-27 15:16] MED LIST changes: +ACHD5005 PO; +DOXY100T2 PO; +FLUC200T5 PO
[2021-03-27 15:38] LABS: BASOPHILS # (AUTO) 0.1 10^3/uL (0.0-0.1); BASOPHILS % (AUTO) 1 % (0-10); EOSINOPHILS % (AUTO) 0 % (0-10); HEMATOCRIT 40 % (35-52); LYMPHOCYTES # (AUTO) 2.1 X 10^3 (1.0-4.0); LYMPHOCYTES % (AUTO) 33 % (12-44); MEAN CORPUSCULAR HEMOGLOBIN 32 pg (25-34); MEAN CORPUSCULAR HGB CONC 33 g/dL (32-36); MEAN CORPUSCULAR VOLUME 97 fL (80-99); MEAN PLATELET VOLUME 8.8 fL (9.0-12.2); MONOCYTES # (AUTO) 0.8 X 10^3 (0.0-1.0); MONOCYTES % (AUTO) 13 % (0-12); NEUTROPHILS # (AUTO) 3.4 X 10^3 (1.8-7.8); NEUTROPHILS % (AUTO) 52 % (42-75); PLATELET COUNT 306 10^3/uL (130-400); WHITE BLOOD COUNT 6.5 10^3/uL (4.3-11.0)
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
[2021-03-27] MEDS ORDERED: NS 100 ML (IVPB) BAG IV ONE (15:45)
[2021-03-27] MEDS ORDERED: IOHEXOL 350 MG/ML 100 ML (OMNIPAQUE 350) VIAL IV ONE (15:45)
[2021-03-27] MEDS ORDERED: CATHETER FLUSH 10 ML SYR IV PRN (15:45)
[2021-03-27] MEDS ORDERED: HOLD METFORMIN - RECEIVED CONTRAST 20 ML VIAL IV SCH (15:45)
[2021-03-27 15:50] LABS: ALBUMIN 4.4 GM/DL (3.2-4.5); POTASSIUM 3.5 MMOL/L (3.6-5.0)
[2021-03-27 15:51] LABS: CALCIUM 9.7 MG/DL (8.5-10.1)
[2021-03-27 15:53] LABS: TOTAL PROTEIN 7.9 GM/DL (6.4-8.2)
[2021-03-27 15:54] LABS: BILIRUBIN,TOTAL 0.5 MG/DL (0.1-1.0)
[2021-03-27 15:56] LABS: CREATININE SERUM 0.83 MG/DL (0.60-1.30)
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
[2021-03-27 17:10] VITALS: BP 117/80
== END 2021-03-27 17:10 | disposition home or self-care (01) ==
LOC: EDUNIT# 15:16 → ER 15:18
DX: O9A.211 Injury, poisoning and certain other consequences of external causes complicating pregnancy, first trimester (principal); S40.211A Abrasion of right shoulder, initial encounter; F10.10 Alcohol abuse, uncomplicated; J45.909 Unspecified asthma, uncomplicated; F41.9 Anxiety disorder, unspecified; Z3A.01 Less than 8 weeks gestation of pregnancy; Z79.899 Other long term (current) drug therapy; V89.2XXA Person injured in unspecified motor-vehicle accident, traffic, initial encounter
CPT/HCPCS: 70450; 71260; 72125; 74177; 80053; 84703; 85025; 99284; G0480; 36415; 80320

== ENCOUNTER 2021-04-19 14:35 | Inpatient (IN) | payer SELFPAY ==
[~2021-04-19] VITALS: Ht 152 cm; Wt 59.8 kg
[2021-04-19] MEDS ORDERED: LORazepam INJ 2 MG/ML (ATIVAN) VIAL IM/IV PRN (14:45)
[2021-04-19] MEDS ORDERED: ANTACID SUSP 30 ML UDC (MYLANTA) PO PRN (14:45)
[2021-04-19] MEDS ORDERED: LORazepam INJ 2 MG/ML (ATIVAN) VIAL IV PRN (14:45)
[2021-04-19] MEDS ORDERED: SENNA W/DOCUSATE (SENOKOT S) TABLET PO PRN (14:45)
[2021-04-19] MEDS ORDERED: 1/2 NS IV SOLUTION 1,000 ML IV PRN (14:45)
[2021-04-19] MEDS ORDERED: D5 1/2 NS 1000 ML IV SOLUTION 1,000 ML IV PRN (14:45)
[2021-04-19] MEDS ORDERED: ONDANSETRON 4 MG (ZOFRAN) ORAL DISSOLVE TAB SL PRN (14:45)
[2021-04-19] MEDS ORDERED: ONDANSETRON 4 MG/2 ML (SDV) Z0FRAN IV PRN (14:45)
[2021-04-19] MEDS: LORazepam 1 MG (ATIVAN) TAB PO PRN ×2 (16:13→17:37)
[2021-04-19] MEDS ORDERED: THIAMINE INJECTION 100 MG, FOLIC ACID INJECTION 1 MG, MAGNESIUM SULFATE 2 GM, VITAMIN M... IV SCH ×5 (17:00)
--- NOTE | 2021-04-19 17:21 | Tele-ICU Progress Note ---
Progress Note Video assessment done , Hemodynamically stable Available charting reviewed, discussed with RN NO TELE-ICU CONSULT REQUESTED CONTINUE TO MONITOR PER USUAL TELE-ICU PROTOCOL ETOH abuse / intoxication / pending withdrawal syndrome -No hallucinations. No seizures - monitor -Continue supportive care on CIWA protocol- cont benzo, prn precedex -monitor vitals -follow lytes -Thiamine and folate No need for Tele-ICU interventions Plans as delineated by bedside physicians / consultants Focused Exam Height, Weight, BMI Height: 5'1.50" Weight: 204lbs. 2.0oz. 92.450452ed; 28.13 BMI Method:Stated VIDAL MAYORGA MD Apr 19, 2021 17:21
[2021-04-19] MEDS: ENOXAPARIN 40 MG/0.4 ML (LOVENOX) SYR SC SCH (17:28)
[2021-04-20 05:34] LABS: BASOPHILS % (AUTO) 1 % (0-10); EOSINOPHILS # (AUTO) 0.1 10^3/uL (0.0-0.3); EOSINOPHILS % (AUTO) 2 % (0-10); HEMATOCRIT 38 % (35-52); HEMOGLOBIN 12.3 g/dL (11.5-16.0); LYMPHOCYTES # (AUTO) 1.9 10^3/uL (1.0-4.0); LYMPHOCYTES % (AUTO) 43 % (12-44); MEAN CORPUSCULAR HEMOGLOBIN 31 pg (25-34); MEAN CORPUSCULAR HGB CONC 32 g/dL (32-36); MEAN CORPUSCULAR VOLUME 97 fL (80-99); MEAN PLATELET VOLUME 9.1 fL (9.0-12.2); MONOCYTES # (AUTO) 0.4 10^3/uL (0.0-1.0); MONOCYTES % (AUTO) 10 % (0-12); NEUTROPHILS # (AUTO) 1.9 10^3/uL (1.8-7.8); NEUTROPHILS % (AUTO) 44 % (42-75); PLATELET COUNT 207 10^3/uL (130-400); WHITE BLOOD COUNT 4.4 10^3/uL (4.3-11.0)
[2021-04-20 05:42] LABS: POTASSIUM 4.1 MMOL/L (3.6-5.0)
[2021-04-20 05:43] LABS: CALCIUM 9.1 MG/DL (8.5-10.1)
[2021-04-20 05:47] LABS: PHOSPHORUS 3.5 MG/DL (2.3-4.7)
[2021-04-20 05:48] LABS: CREATININE SERUM 0.62 MG/DL (0.60-1.30)
[2021-04-20 05:50] LABS: MAGNESIUM 1.8 MG/DL (1.6-2.4)
[2021-04-20] MEDS: MAGNESIUM 1 GM/100 ML IVPB 100 ML IV SCH (06:09)
[2021-04-20] MEDS: KCL 20 MEQ TAB (K-DUR) PO SCH (06:09)
[2021-04-20] MEDS: POTASSIUM CL 10MEQ/50ML IVPB 50 ML IV SCH (06:09)
[2021-04-20] MEDS: THIAMINE INJECTION 100 MG, FOLIC ACID INJECTION 1 MG, MAGNESIUM SULFATE 2 GM, VITAMIN M... IV SCH ×5 (09:48)
[2021-04-20] MEDS: LORazepam 1 MG (ATIVAN) TAB PO PRN ×5 (11:11→19:42)
[2021-04-20 11:16] LABS: BILIRUBIN,URINE NEGATIVE (NEGATIVE); CLARITY,URINE CLEAR; COLOR,URINE YELLOW; GLUCOSE, URINE (UA) NEGATIVE (NEGATIVE); KETONES,URINE NEGATIVE (NEGATIVE); LEUKOCYTE ESTERASE ,URINE NEGATIVE (NEGATIVE); NITRITE,URINE NEGATIVE (NEGATIVE); PROTEIN,URINE NEGATIVE (NEGATIVE)
[2021-04-20 11:27] LABS: BACTERIA,URINE TRACE /HPF; RBC,URINE 0-2 /HPF; SQUAMOUS EPITHELIAL CELL,UR 0-2 /HPF; WBC,URINE 0-2 /HPF
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
[2021-04-20] MEDS: ENOXAPARIN 40 MG/0.4 ML (LOVENOX) SYR SC SCH (17:01)
[2021-04-21 05:43] LABS: POTASSIUM 3.9 MMOL/L (3.6-5.0)
[2021-04-21 05:44] LABS: CALCIUM 9.2 MG/DL (8.5-10.1)
[2021-04-21 05:48] LABS: PHOSPHORUS 4.2 MG/DL (2.3-4.7)
[2021-04-21 05:49] LABS: CREATININE SERUM 0.65 MG/DL (0.60-1.30)
[2021-04-21 05:51] LABS: MAGNESIUM 2.1 MG/DL (1.6-2.4)
[2021-04-21] MEDS: KCL 20 MEQ TAB (K-DUR) PO SCH (05:55)
[2021-04-21] MEDS: MAGNESIUM 1 GM/100 ML IVPB 100 ML IV SCH (05:55)
[2021-04-21] MEDS: POTASSIUM CL 10MEQ/50ML IVPB 50 ML IV SCH (05:55)
[2021-04-21] MEDS: THIAMINE INJECTION 100 MG, FOLIC ACID INJECTION 1 MG, MAGNESIUM SULFATE 2 GM, VITAMIN M... IV SCH ×5 (09:08)
--- NOTE | 2021-04-21 10:31 | Tele-ICU Progress Note ---
Progress Note video rounds completed 30 y/o female admited with ETOH abuse Now doing well No DTs or hallucinations PLAN: No new interventions today robin transfer out of ICU Focused Exam Height, Weight, BMI Height: 5'1.50" Weight: 204lbs. 2.0oz. 92.351367ua; 28.13 BMI Method:Stated Laboratory Tests 04/21/21 04:02 MERI COLLIER MD Apr 21, 2021 10:31
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
[2021-04-21] MEDS ORDERED: metroNIDAZOLE 500 MG (FLAGYL) TAB PO ONE (14:30)
[2021-04-21] MEDS: LORazepam 1 MG (ATIVAN) TAB PO PRN ×2 (15:37→20:07)
[2021-04-21] MEDS: ENOXAPARIN 40 MG/0.4 ML (LOVENOX) SYR SC SCH (17:36)
[2021-04-21] MEDS ORDERED: metroNIDAZOLE 500 MG (FLAGYL) TAB PO SCH (21:00)
== END 2021-04-21 21:17 | disposition left against medical advice (07) | DRG 894 ==
LOC: ICU 15:40 → 4TH 04-21 13:08
PROVIDERS: ADMIT Family Medicine; ATTEND Family Medicine
DX: F10.130 Alcohol abuse with withdrawal, uncomplicated (principal); N76.0 Acute vaginitis; Z72.51 High risk heterosexual behavior; F12.90 Cannabis use, unspecified, uncomplicated; G40.909 Epilepsy, unspecified, not intractable, without status epilepticus; F41.9 Anxiety disorder, unspecified; F32.A Depression, unspecified; F43.10 Post-traumatic stress disorder, unspecified; J45.909 Unspecified asthma, uncomplicated; Z88.0 Allergy status to penicillin; Z88.1 Allergy status to other antibiotic agents
CPT/HCPCS: 36415; 80048; 81000; 83735; 84100; 84703; 85025; 86703; 87081; 87210; 87491; 87591

== ENCOUNTER 2021-04-29 10:49 | Emergency (ER) | payer SELFPAY ==
[~2021-04-29] VITALS: Ht 152.4 cm; Wt 63.5 kg
[2021-04-29] MEDS ORDERED: LORazepam INJ 2 MG/ML (ATIVAN) VIAL IVP ONE ×2 (11:00→11:45)
[2021-04-29] MEDS ORDERED: ONDANSETRON 4 MG/2 ML (SDV) Z0FRAN IVP ONE (11:00)
[2021-04-29] MEDS ORDERED: LACTATED RINGERS 1,000 ML IV SCH (11:00)
--- NOTE | 2021-04-29 11:03 | ED Psychosocial ---
General Chief Complaint: Substance Abuse Stated Complaint: DETOX ETOH Source: patient Exam Limitations: no limitations History of Present Illness Date Seen by Provider: Apr 29, 2021 Time Seen by Provider: 11:01 Initial Comments To ER with nausea and anxiety. She drinks 1 gallon of vodka per day and last drink was last night. She states that she called [facility] and was told to come to the ER and be admitted. She was here 10 days ago for the [facility], she was admitted but she left AGAINST MEDICAL ADVICE. She would like readmitted because now she says she is ready. Timing/Duration: constant Severity: moderate Associated Symptoms: anxiety Allergies and Home Medications Allergies Coded Allergies: Penicillins (Unverified Allergy, Mild, 04/11/09) amoxicillin (Unverified Allergy, Mild, UNKNOWN, 06/22/09) cefaclor (Unverified Allergy, Mild, 04/11/09) Patient Home Medication List Home Medication List Reviewed: Yes Acetaminophen (Tylenol) 325 Mg Capsule, 325 MG PO NEEDED, (Reported) Entered as Reported by: CAITIE CORDERO on 09/21/18 2321 Chlordiazepoxide HCl (Chlordiazepoxide HCl) 25 Mg Capsule, 25 MG PO UD Prescribed by: KATIA CARDOZA on 04/29/21 1133 Cyclobenzaprine HCl (Cyclobenzaprine HCl) 10 Mg Tablet, 10 MG PO Q8H PRN for SPASMS Prescribed by: REGAN LOWE on 06/06/20 105 Doxycycline Hyclate (Doxycycline Hyclate) 100 Mg Tablet, 100 MG PO BID Prescribed by: REGAN LOWE on 02/26/21 180 Fluconazole (Fluconazole) 200 Mg Tablet, 200 MG PO ONCE Prescribed by: REGAN LOWE on 02/26/21 180 Hydrocodone/Acetaminophen (Hydrocodone-Acetamin 5-325 mg) 1 Each Tablet, 1 TAB PO Q6H PRN for PAIN-MODERATE (5-7) Prescribed by: REGAN LOWE on 02/26/21 180 Hydroxyzine Pamoate (Vistaril) 25 Mg Capsule, 25 MG PO Q6H PRN for ANXIETY Prescribed by: VIVIAN NAIR on 12/03/16 1643 Metronidazole (Flagyl) 500 Mg Tablet, 500 MG PO BID Prescribed by: MANUEL KHALIL on 12/26/20 1552 Nitrofurantoin Monohyd/M-Cryst (Macrobid 100 mg Capsule) 100 Mg Capsule, 1 TAB PO BID Prescribed by: BERNARD CONTRERAS on 05/07/20 1017 Sulfamethoxazole/Trimethoprim (Bactrim Ds Tablet) 1 Each Tablet, 1 EACH PO BID Prescribed by: REGAN LOWE on 02/26/21 1807 Review of Systems Constitutional: see HPI EENTM: see HPI Respiratory: no symptoms reported Cardiovascular: no symptoms reported Genitourinary: no symptoms reported Musculoskeletal: no symptoms reported Skin: no symptoms reported Psychiatric/Neurological: See HPI, Anxiety Past Xjbhtfa-Xeqmbg-Okauqt Hx Immunizations Up To Date Tetanus Booster (TDap): More than 5yrs First/Initial COVID19 Vaccinat: NONE Second COVID19 Vaccination Miko: NONE Seasonal Allergies Seasonal Allergies: No Past Medical History Surgery/Hospitalization HX: X 5 LAPAROSCOPY BILATERAL TUBAL LIGATION D AND C Surgeries: Yes ("BLADDER STRETCHED", LAPAROSCOPY, D&C) Abdominal, Section, Tubal Ligation Respiratory: Yes Asthma Cardiac: Yes Heart Murmur, Palpitations Neurological: Yes Seizure Disorder Reproductive Disorders: Yes (ENDOMETRIOSIS) Female Reproductive Disorders: Endometriosis Sexually Transmitted Disease: Yes (PID) Genitourinary: Yes Kidney Infection, Kidney Stones, UTI-Chronic Gastrointestinal: No Musculoskeletal: No Endocrine: No HEENT: No Cancer: No Psychosocial: Yes Anxiety, PTSD, Depression Integumentary: No Blood Disorders: No Family Medical History Cancer, Other Conditions/Hx Physical Exam Vital Signs - First Documented 04/29/21 10:54 Pulse 100 Resp 20 B/P (MAP) 110/90 (97) Pulse Ox 95 O2 Delivery Room Air Capillary Refill : Height, Weight, BMI Height: 5'1.50" Weight: 204lbs. 2.0oz. 92.050667oe; 28.13 BMI Method:Stated General Appearance: WD/WN, no apparent distress, other (Anxious tremulous. Blood pressure 110/90. Alert and oriented no hallucinations or delirium.) Respiratory: no respiratory distress, no accessory muscle use Cardiovascular: regular rate, rhythm, no murmur Gastrointestinal: normal bowel sounds, non tender, soft Neurologic/Psychiatric: alert, normal mood/affect, oriented x 3 Appearance/Memory: appropriate appearance, appropriate insight, neat Behavior/Eye Contact: cooperative, good eye contact Thoughts/Hallucinations: normal thought pattern, no apparent hallucination Skin: normal color, warm/dry Progress/Results/Core Measures Results/Orders Lab Results Laboratory Tests Test 04/29/21 10:54 Range/Units White Blood Count 5.9 4.3-11.0 10^3/uL Red Blood Count 4.02 3.80-5.11 10^6/uL Hemoglobin 12.3 11.5-16.0 g/dL Hematocrit 39 35-52 % Mean Corpuscular Volume 96 80-99 fL Mean Corpuscular Hemoglobin 31 25-34 pg Mean Corpuscular Hemoglobin Concent 32 32-36 g/dL Red Cell Distribution Width 14.0 10.0-14.5 % Platelet Count 317 130-400 10^3/uL Mean Platelet Volume 8.8 L 9.0-12.2 fL Immature Granulocyte % (Auto) 0 % Neutrophils (%) (Auto) 48 42-75 % Lymphocytes (%) (Auto) 33 12-44 % Monocytes (%) (Auto) 17 H 0-12 % Eosinophils (%) (Auto) 1 0-10 % Basophils (%) (Auto) 1 0-10 % Neutrophils # (Auto) 2.9 1.8-7.8 10^3/uL Lymphocytes # (Auto) 1.9 1.0-4.0 10^3/uL Monocytes # (Auto) 1.0 0.0-1.0 10^3/uL Eosinophils # (Auto) 0.0 0.0-0.3 10^3/uL Basophils # (Auto) 0.1 0.0-0.1 10^3/uL Immature Granulocyte # (Auto) 0.0 0.0-0.1 10^3/uL Prothrombin Time 13.2 12.2-14.7 SEC INR Comment 1.0 0.8-1.4 Sodium Level 136 135-145 MMOL/L Potassium Level 4.4 3.6-5.0 MMOL/L Chloride Level 102 98-107 MMOL/L Carbon Dioxide Level 23 21-32 MMOL/L Anion Gap 11 5-14 MMOL/L Blood Urea Nitrogen 9 7-18 MG/DL Creatinine 0.74 0.60-1.30 MG/DL Estimat Glomerular Filtration Rate 93 BUN/Creatinine Ratio 12 Glucose Level 99 70-105 MG/DL Calcium Level 9.7 8.5-10.1 MG/DL Corrected Calcium 9.8 8.5-10.1 MG/DL Total Bilirubin 0.3 0.1-1.0 MG/DL Aspartate Amino Transf (AST/SGOT) 149 H 5-34 U/L Alanine Aminotransferase (ALT/SGPT) 149 H 0-55 U/L Alkaline Phosphatase 111 40-136 U/L Total Protein 8.3 H 6.4-8.2 GM/DL Albumin 3.9 3.2-4.5 GM/DL Serum Test, Qualitative NEGATIVE NEGATIVE Serum Alcohol 35 H <10 MG/DL My Orders Orders - KATIA CARDOZA APRN Alcohol (04/29/21 11:00) Protime With Inr (04/29/21 11:00) Cbc With Automated Diff (04/29/21 11:00) Comprehensive Metabolic Panel (04/29/21 11:00) Ua Culture If Indicated (04/29/21 11:00) Hcg,Qualitative Serum (04/29/21 11:00) Ed Iv/Invasive Line Start (04/29/21 11:00) Lorazepam Injection (Ativan Injection) (04/29/21 11:00) Lactated Ringers (Lr 1000 Ml Iv Solution (04/29/21 11:00) Ondansetron Injection (Zofran Injectio (04/29/21 11:00) Folic Acid Tablet (Folic Acid Tablet) (04/30/21 09:00) Lorazepam Injection (Ativan Injection) (04/29/21 11:45) Medications Given in ED Current Medications Medications Dose Ordered Sig/Zenaida Route Start Time Stop Time Status Last Admin Dose Admin Lorazepam 2 mg ONCE ONCE IVP 04/29/21 11:00 04/29/21 11:01 DC 04/29/21 11:21 2 MG Ondansetron HCl 8 mg ONCE ONCE IVP 04/29/21 11:00 04/29/21 11:01 DC 04/29/21 11:21 8 MG Vital Signs/I&O 04/29/21 10:54 Pulse 100 Resp 20 B/P (MAP) 110/90 (97) Pulse Ox 95 O2 Delivery Room Air Departure Communication (Admissions) 1132-patient is sleeping heart rate 70 blood pressure 107/61. Still feels a little shaky. We will give an additional 1 mg of Ativan then I will get her set up for an outpatient Ativan regimen. We spoke with [facility] [place], they will see the patient tomorrow at 9 AM and tentatively plan to take her to addiction treatment center tomorrow. They request only enough medication (Ativan) to get her until 9 AM tomorrow. Impression Primary Impression: Alcohol abuse Disposition: 01 HOME, SELF-CARE Condition: Improved Departure-Patient Inst. Decision time for Depature: 11:28 Referrals: [facility] (PCP/Family) Primary Care Physician Patient Instructions: ALCOHOL AND SUBSTANCE ABUSE Add. Discharge Instructions: 1. Go To [facility] TOMORROW morning at 9AM with a tentative plan to go to addiction treatment center in [place]. I have sent in medication for you to [facility] right across the street to start when you leave here. Scripts Lorazepam (Ativan) 2 Mg Tablet 2 MG PO Q6H for 7 Days, #4 TAB Prov: KATIA CARDOZA APRN 04/29/21 Chlordiazepoxide HCl (Chlordiazepoxide HCl) 25 Mg Capsule 25 MG PO UD, #12 CAP Day one 2 tablets every 8 hours Day two 2 tablets every 12 hours Day three 2 tablets in the morning Prov: KATIA CARDOZA APRN 04/29/21 KATIA CARDOZA APRN Apr 29, 2021 11:03
[2021-04-29 11:05] LABS: BASOPHILS # (AUTO) 0.1 10^3/uL (0.0-0.1); BASOPHILS % (AUTO) 1 % (0-10); EOSINOPHILS % (AUTO) 1 % (0-10); HEMATOCRIT 39 % (35-52); HEMOGLOBIN 12.3 g/dL (11.5-16.0); LYMPHOCYTES # (AUTO) 1.9 10^3/uL (1.0-4.0); LYMPHOCYTES % (AUTO) 33 % (12-44); MEAN CORPUSCULAR HEMOGLOBIN 31 pg (25-34); MEAN CORPUSCULAR HGB CONC 32 g/dL (32-36); MEAN CORPUSCULAR VOLUME 96 fL (80-99); MEAN PLATELET VOLUME 8.8 fL (9.0-12.2); MONOCYTES % (AUTO) 17 % (0-12); NEUTROPHILS # (AUTO) 2.9 10^3/uL (1.8-7.8); NEUTROPHILS % (AUTO) 48 % (42-75); PLATELET COUNT 317 10^3/uL (130-400); WHITE BLOOD COUNT 5.9 10^3/uL (4.3-11.0)
[2021-04-29 11:19] LABS: ALBUMIN 3.9 GM/DL (3.2-4.5); POTASSIUM 4.4 MMOL/L (3.6-5.0); PROTHROMBIN TIME PATIENT 13.2 SEC (12.2-14.7)
[2021-04-29 11:20] LABS: CALCIUM 9.7 MG/DL (8.5-10.1)
[2021-04-29 11:22] LABS: TOTAL PROTEIN 8.3 GM/DL (6.4-8.2)
[2021-04-29 11:23] LABS: BILIRUBIN,TOTAL 0.3 MG/DL (0.1-1.0)
[2021-04-29 11:25] LABS: CREATININE SERUM 0.74 MG/DL (0.60-1.30)
[2021-04-29] MEDS ORDERED: CHLO25CA10 PO (11:32)
[2021-04-29] MEDS ORDERED: LORA-407 PO (12:46)
[2021-04-29 13:15] LABS: BILIRUBIN,URINE NEGATIVE (NEGATIVE); CLARITY,URINE CLEAR; COLOR,URINE YELLOW; GLUCOSE, URINE (UA) NEGATIVE (NEGATIVE); KETONES,URINE NEGATIVE (NEGATIVE); LEUKOCYTE ESTERASE ,URINE TRACE (NEGATIVE); NITRITE,URINE NEGATIVE (NEGATIVE); PROTEIN,URINE TRACE (NEGATIVE)
[2021-04-29 13:25] LABS: BACTERIA,URINE FEW /HPF; RBC,URINE RARE /HPF
[2021-04-29 14:03] VITALS: BP 107/61
[2021-04-30] MEDS ORDERED: FOLIC ACID 1 MG TAB PO SCH (09:00)
== END 2021-04-29 13:29 | disposition home or self-care (01) ==
LOC: EDUNIT# 10:49 → ER 10:51
DX: F10.10 Alcohol abuse, uncomplicated (principal); J45.909 Unspecified asthma, uncomplicated; F41.9 Anxiety disorder, unspecified; Z79.899 Other long term (current) drug therapy
CPT/HCPCS: 80053; 81000; 84703; 85025; 85610; 87088; 99284; G0480; 36415; 80320; 87077; 87186

== ENCOUNTER 2021-06-14 14:20 | Emergency (ER) | payer SELFPAY ==
[~2021-06-14] VITALS: Ht 152 cm; Wt 57.0 kg
[~2021-06-14 14:20] MED LIST changes: +CHLO25CA10 PO; +CYCL10TA25 PO; -CYCL10TA9 PO; +LORA-407 PO
[2021-06-14] MEDS ORDERED: ONDANSETRON 4 MG (ZOFRAN) ORAL DISSOLVE TAB PO STA (15:02)
[2021-06-14] MEDS ORDERED: LORazepam 0.5 MG (ATIVAN) TABLET PO STA (15:02)
[2021-06-14 15:08] LABS: BASOPHILS # (AUTO) 0.1 10^3/uL (0.0-0.1); BASOPHILS % (AUTO) 1 % (0-10); EOSINOPHILS # (AUTO) 0.1 10^3/uL (0.0-0.3); EOSINOPHILS % (AUTO) 2 % (0-10); HEMATOCRIT 38 % (35-52); HEMOGLOBIN 12.5 g/dL (11.5-16.0); LYMPHOCYTES # (AUTO) 2.2 10^3/uL (1.0-4.0); LYMPHOCYTES % (AUTO) 41 % (12-44); MEAN CORPUSCULAR HEMOGLOBIN 29 pg (25-34); MEAN CORPUSCULAR HGB CONC 33 g/dL (32-36); MEAN CORPUSCULAR VOLUME 89 fL (80-99); MONOCYTES # (AUTO) 0.8 10^3/uL (0.0-1.0); MONOCYTES % (AUTO) 14 % (0-12); NEUTROPHILS # (AUTO) 2.4 10^3/uL (1.8-7.8); NEUTROPHILS % (AUTO) 43 % (42-75); PLATELET COUNT 189 10^3/uL (130-400); WHITE BLOOD COUNT 5.5 10^3/uL (4.3-11.0)
[2021-06-14 15:13] LABS: CHLORIDE 102 MMOL/L (98-107); POTASSIUM 3.8 MMOL/L (3.6-5.0); SODIUM 139 MMOL/L (135-145)
[2021-06-14 15:15] LABS: CALCIUM 9.3 MG/DL (8.5-10.1)
[2021-06-14 15:16] LABS: GLUCOSE 79 MG/DL (70-105); TOTAL PROTEIN 8.4 GM/DL (6.4-8.2)
[2021-06-14 15:17] LABS: CARBON DIOXIDE 23 MMOL/L (21-32)
[2021-06-14 15:18] LABS: BILIRUBIN,TOTAL 0.7 MG/DL (0.1-1.0)
[2021-06-14 15:20] LABS: ALKALINE PHOSPHATASE 98 U/L (40-136); GFR ESTIMATED 98
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
[2021-06-14 15:21] LABS: ACETAMINOPHEN < 10 UG/ML (10-30); BUN/CREATININE RATIO 14
[2021-06-14 15:22] LABS: SALICYLATE < 5.0 MG/DL (5.0-20.0)
[2021-06-14 15:23] LABS: ALANINE AMINOTRANSFERASE 182 U/L (0-55)
[2021-06-14] MEDS ORDERED: NS IV 1000 ML 1,000 ML IV SCH (16:15)
[2021-06-14 17:23] LABS: AMPHETAMINE SCREEN, URINE POSITIVE (NEGATIVE); BARBITURATE SCREEN URINE NEGATIVE (NEGATIVE); BENZODIAZEPINES SCREEN URINE NEGATIVE (NEGATIVE); CANNABINOID SCREEN, URINE POSITIVE (NEGATIVE); COCAINE SCREEN URINE NEGATIVE (NEGATIVE); METHADONE STAT NEGATIVE (NEGATIVE); METHAMPHETAMINE SCREEN URINE S POSITIVE (NEGATIVE); OPIATE SCREEN URINE NEGATIVE (NEGATIVE); OXYCODONE STAT NEGATIVE (NEGATIVE); PROPOXYPHENE STAT NEGATIVE (NEGATIVE); TRICYCLIC ANTIDEPRESSANTS SCRE NEGATIVE (NEGATIVE)
[2021-06-14] MEDS ORDERED: CHLO25CA10 PO (17:47)
[2021-06-14 18:06] VITALS: BP 120/88
== END 2021-06-14 18:06 | disposition home or self-care (01) ==
LOC: EDUNIT# 14:20 → ER 14:21
DX: F10.10 Alcohol abuse, uncomplicated (principal); F15.10 Other stimulant abuse, uncomplicated; R00.0 Tachycardia, unspecified; J45.909 Unspecified asthma, uncomplicated; F41.9 Anxiety disorder, unspecified; G40.909 Epilepsy, unspecified, not intractable, without status epilepticus; Z79.899 Other long term (current) drug therapy
CPT/HCPCS: 80053; 80306; 84703; 85025; 99284; G0480 ×3; 36415; 80320; 80329

== ENCOUNTER 2021-11-19 21:09 | Inpatient (IN) | payer OTHER ==
[~2021-11-19] VITALS: Ht 142.2 cm; Wt 66.0 kg
[~2021-11-19 21:09] MED LIST changes: -FLUC200T5 PO; +FLUC200T9 PO
[2021-11-19] MEDS ORDERED: NS IV 1000 ML 1,000 ML IV SCH (22:30)
[2021-11-19] MEDS ORDERED: LORazepam INJ 2 MG/ML (ATIVAN) VIAL IVP ONE (22:30)
[2021-11-19] MEDS ORDERED: ONDANSETRON 4 MG/2 ML (SDV) Z0FRAN IVP ONE (22:30)
[2021-11-19 22:33] LABS: BASOPHILS # (AUTO) 0.1 10^3/uL (0.0-0.1); BASOPHILS % (AUTO) 1 % (0-10); EOSINOPHILS # (AUTO) 0.1 10^3/uL (0.0-0.3); EOSINOPHILS % (AUTO) 1 % (0-10); HEMATOCRIT 35 % (35-52); HEMOGLOBIN 10.9 g/dL (11.5-16.0); LYMPHOCYTES # (AUTO) 2.3 10^3/uL (1.0-4.0); LYMPHOCYTES % (AUTO) 40 % (12-44); MEAN CORPUSCULAR HEMOGLOBIN 26 pg (25-34); MEAN CORPUSCULAR HGB CONC 31 g/dL (32-36); MEAN CORPUSCULAR VOLUME 84 fL (80-99); MEAN PLATELET VOLUME 8.9 fL (9.0-12.2); MONOCYTES # (AUTO) 0.7 10^3/uL (0.0-1.0); MONOCYTES % (AUTO) 13 % (0-12); NEUTROPHILS # (AUTO) 2.6 10^3/uL (1.8-7.8); NEUTROPHILS % (AUTO) 45 % (42-75); PLATELET COUNT 350 10^3/uL (130-400); WHITE BLOOD COUNT 5.7 10^3/uL (4.3-11.0)
[2021-11-19 22:34] LABS: CHLORIDE 102 MMOL/L (98-107); POTASSIUM 4.7 MMOL/L (3.6-5.0); SODIUM 141 MMOL/L (135-145)
[2021-11-19 22:35] LABS: ALBUMIN 4.2 GM/DL (3.2-4.5)
[2021-11-19 22:36] LABS: CALCIUM 9.3 MG/DL (8.5-10.1)
[2021-11-19 22:38] LABS: GLUCOSE 92 MG/DL (70-105); TOTAL PROTEIN 8.8 GM/DL (6.4-8.2)
[2021-11-19 22:39] LABS: BILIRUBIN,TOTAL 0.8 MG/DL (0.1-1.0); CARBON DIOXIDE 23 MMOL/L (21-32)
[2021-11-19 22:41] LABS: ALKALINE PHOSPHATASE 86 U/L (40-136); GFR ESTIMATED 102
[2021-11-19 22:43] LABS: BUN/CREATININE RATIO 16
[2021-11-19 22:44] LABS: ALANINE AMINOTRANSFERASE 96 U/L (0-55); SALICYLATE < 5.0 MG/DL (5.0-20.0)
[2021-11-19 22:45] LABS: ACETAMINOPHEN < 10 UG/ML (10-30)
[2021-11-19 23:20] LABS: BILIRUBIN,URINE NEGATIVE (NEGATIVE); COLOR,URINE YELLOW; GLUCOSE, URINE (UA) NEGATIVE (NEGATIVE); KETONES,URINE NEGATIVE (NEGATIVE); LEUKOCYTE ESTERASE ,URINE 1+ (NEGATIVE); NITRITE,URINE POSITIVE (NEGATIVE); PROTEIN,URINE 3+ (NEGATIVE)
[2021-11-19 23:31] LABS: AMPHETAMINE SCREEN, URINE NEGATIVE (NEGATIVE); BENZODIAZEPINES SCREEN URINE POSITIVE (NEGATIVE); COCAINE SCREEN URINE NEGATIVE (NEGATIVE)
[2021-11-19 23:32] LABS: BACTERIA,URINE MODERATE /HPF; BARBITURATE SCREEN URINE NEGATIVE (NEGATIVE); CANNABINOID SCREEN, URINE POSITIVE (NEGATIVE); CLARITY,URINE SL CLOUDY; METHADONE STAT NEGATIVE (NEGATIVE); OPIATE SCREEN URINE NEGATIVE (NEGATIVE); OXYCODONE STAT NEGATIVE (NEGATIVE); PROPOXYPHENE STAT NEGATIVE (NEGATIVE); RBC,URINE RARE /HPF; TRICYCLIC ANTIDEPRESSANTS SCRE NEGATIVE (NEGATIVE)
[2021-11-20] MEDS ORDERED: LORazepam INJ 2 MG/ML (ATIVAN) VIAL IVP STA (01:51)
[2021-11-20] MEDS ORDERED: THIAMINE INJECTION 100 MG in NS (IVPB) 50 ML IV STA (01:51)
[2021-11-20] MEDS ORDERED: FOLIC ACID INJECTION 1 MG in NS (IVPB) 50 ML IV STA (02:02)
[2021-11-20] MEDS ORDERED: METOCLOPRAMIDE INJ 10 MG/2 ML (REGLAN) IVP STA (02:03)
[2021-11-20] MEDS ORDERED: CIPROFLOXACIN IV 400MG/200ML 200 ML IV STA (02:06)
--- NOTE | 2021-11-20 02:06 | ED Psychosocial ---
General Chief Complaint: Substance Abuse Stated Complaint: DETOXING Nursing Triage Note: PT ARRIVES PER POV STATING "I'M DETOXING." AMBULATORY TO ROOM, PT WITH UNCONTROLABLE TREMORS NOTED. 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 History of Present Illness Date Seen by Provider: November 19, 2021 Time Seen by Provider: 23:30 Initial Comments 31-year-old female with PMH of alcohol addiction is here with complaints of alcohol withdrawal symptoms. Patient's last drink was 7 AM in the morning. Patient has been wanting to detox for a few weeks. Patient tried to detox slowly and wean herself off alcohol over the past few days. Today morning she had a drink at 7 AM because she was unable to stay sober due to withdrawal symptoms. Patient feels unwell and has tremors. Denies abdominal pain, headache, diarrhea, chest pain, shortness of breath, fever. Patient has associated nausea and vomiting. Allergies and Home Medications Allergies Coded Allergies: Penicillins (Unverified Allergy, Mild, 04/11/09) amoxicillin (Unverified Allergy, Mild, UNKNOWN, 06/22/09) cefaclor (Unverified Allergy, Mild, 04/11/09) Patient Home Medication List Home Medication List Reviewed: Yes Acetaminophen (Tylenol) 325 Mg Capsule, 325 MG PO NEEDED, (Reported) Entered as Reported by: CAITIE CORDERO on 09/21/18 2321 Chlordiazepoxide HCl (Chlordiazepoxide HCl) 25 Mg Capsule, 25 MG PO UD Prescribed by: KATIA CARDOZA on 04/29/21 1133 Chlordiazepoxide HCl (Chlordiazepoxide HCl) 25 Mg Capsule, 25 MG PO TID Prescribed by: FLORENTINO TIAN on 06/14/21 1747 Cyclobenzaprine HCl (Cyclobenzaprine HCl) 10 Mg Tablet, 10 MG PO Q8H PRN for SPASMS Prescribed by: REGAN LOWE on 06/06/20 1051 Doxycycline Hyclate (Doxycycline Hyclate) 100 Mg Tablet, 100 MG PO BID Prescribed by: REGAN LOWE on 02/26/21 180 Fluconazole (Fluconazole) 200 Mg Tablet, 200 MG PO ONCE Prescribed by: REGAN LOWE on 02/26/21 180 Hydrocodone/Acetaminophen (Hydrocodone-Acetamin 5-325 mg) 1 Each Tablet, 1 TAB PO Q6H PRN for PAIN-MODERATE (5-7) Prescribed by: REGAN LOWE on 02/26/21 180 Hydroxyzine Pamoate (Vistaril) 25 Mg Capsule, 25 MG PO Q6H PRN for ANXIETY Prescribed by: VIVIAN NAIR on 12/03/16 1643 Lorazepam (Ativan) 2 Mg Tablet, 2 MG PO Q6H Prescribed by: KATIA CARDOZA on 04/29/21 1247 Metronidazole (Flagyl) 500 Mg Tablet, 500 MG PO BID Prescribed by: MANUEL KHALIL on 12/26/20 1552 Nitrofurantoin Monohyd/M-Cryst (Macrobid 100 mg Capsule) 100 Mg Capsule, 1 TAB PO BID Prescribed by: BERNARD CONTRERAS on 05/07/20 1017 Sulfamethoxazole/Trimethoprim (Bactrim Ds Tablet) 1 Each Tablet, 1 EACH PO BID Prescribed by: REGAN LOWE on 02/26/211806 Review of Systems Constitutional: diaphoresis, malaise EENTM: no symptoms reported Respiratory: no symptoms reported Cardiovascular: no symptoms reported Gastrointestinal: no symptoms reported Genitourinary: no symptoms reported Musculoskeletal: no symptoms reported Skin: no symptoms reported Psychiatric/Neurological: Tremors, Weakness Past Ypgfgws-Sahfvu-Mhhrcn Hx Patient Social History Tobacco Use?: No Use of E-Cig and/or Vaping dev: No Substance use?: No Alcohol Use?: Yes Alcohol type: Hard Liquor Alcohol Frequency: Daily Pt feels they are or have been: No Immunizations Up To Date Tetanus Booster (TDap): More than 5yrs First/Initial COVID19 Vaccinat: NONE Second COVID19 Vaccination Miko: NONE Third COVID19 Vaccination Date: NONE Seasonal Allergies Seasonal Allergies: No Past Medical History Surgery/Hospitalization HX: X 5 LAPAROSCOPY BILATERAL TUBAL LIGATION D AND C Surgeries: Yes ("BLADDER STRETCHED", LAPAROSCOPY, D&C) Abdominal, Section, Tubal Ligation Respiratory: Yes Asthma Cardiac: Yes Heart Murmur, Palpitations Neurological: Yes Seizure Disorder Reproductive Disorders: Yes (ENDOMETRIOSIS) Female Reproductive Disorders: Endometriosis Sexually Transmitted Disease: Yes (PID) Genitourinary: Yes Kidney Infection, Kidney Stones, UTI-Chronic Gastrointestinal: No Musculoskeletal: No Endocrine: No HEENT: No Cancer: No Psychosocial: Yes Anxiety, PTSD, Depression Integumentary: No Blood Disorders: No Family Medical History Cancer, Other Conditions/Hx Physical Exam Vital Signs - First Documented 11/19/21 21:37 Temp 36.9 Pulse 93 Resp 24 B/P (MAP) 148/108 (121) Pulse Ox 96 O2 Delivery Room Air Capillary Refill : Less Than 3 Seconds Height, Weight, BMI Height: 5'1.50" Weight: 204lbs. 2.0oz. [id number]; 29.00 BMI Method:Stated General Appearance: severe distress HEENT: PERRL/EOMI Neck: full range of motion, supple Respiratory: chest non-tender, lungs clear, normal breath sounds Cardiovascular: normal peripheral pulses, regular rate, rhythm Gastrointestinal: normal bowel sounds, non tender, soft, no organomegaly Extremities: normal range of motion Neurologic/Psychiatric: no motor/sensory deficits, alert, normal mood/affect, oriented x 3, other (tremors) Appearance/Memory: no memory impairment Behavior/Eye Contact: cooperative Skin: normal color Progress/Results/Core Measures Results/Orders Lab Results Laboratory Tests Test 11/19/21 21:15 11/19/21 23:15 Range/Units White Blood Count 5.7 4.3-11.0 10^3/uL Red Blood Count 4.18 3.80-5.11 10^6/uL Hemoglobin 10.9 L 11.5-16.0 g/dL Hematocrit 35 35-52 % Mean Corpuscular Volume 84 80-99 fL Mean Corpuscular Hemoglobin 26 25-34 pg Mean Corpuscular Hemoglobin Concent 31 L 32-36 g/dL Red Cell Distribution Width 16.6 H 10.0-14.5 % Platelet Count 350 130-400 10^3/uL Mean Platelet Volume 8.9 L 9.0-12.2 fL Immature Granulocyte % (Auto) 0 % Neutrophils (%) (Auto) 45 42-75 % Lymphocytes (%) (Auto) 40 12-44 % Monocytes (%) (Auto) 13 H 0-12 % Eosinophils (%) (Auto) 1 0-10 % Basophils (%) (Auto) 1 0-10 % Neutrophils # (Auto) 2.6 1.8-7.8 10^3/uL Lymphocytes # (Auto) 2.3 1.0-4.0 10^3/uL Monocytes # (Auto) 0.7 0.0-1.0 10^3/uL Eosinophils # (Auto) 0.1 0.0-0.3 10^3/uL Basophils # (Auto) 0.1 0.0-0.1 10^3/uL Immature Granulocyte # (Auto) 0.0 0.0-0.1 10^3/uL Sodium Level 141 135-145 MMOL/L Potassium Level 4.7 3.6-5.0 MMOL/L Chloride Level 102 98-107 MMOL/L Carbon Dioxide Level 23 21-32 MMOL/L Anion Gap 16 H 5-14 MMOL/L Blood Urea Nitrogen 13 7-18 MG/DL Creatinine 0.80 0.60-1.30 MG/DL Estimat Glomerular Filtration Rate 102 BUN/Creatinine Ratio 16 Glucose Level 92 70-105 MG/DL Calcium Level 9.3 8.5-10.1 MG/DL Corrected Calcium 9.1 8.5-10.1 MG/DL Total Bilirubin 0.8 0.1-1.0 MG/DL Aspartate Amino Transf (AST/SGOT) 134 H 5-34 U/L Alanine Aminotransferase (ALT/SGPT) 96 H 0-55 U/L Alkaline Phosphatase 86 40-136 U/L Total Protein 8.8 H 6.4-8.2 GM/DL Albumin 4.2 3.2-4.5 GM/DL Salicylates Level < 5.0 L 5.0-20.0 MG/DL Acetaminophen Level < 10 L 10-30 UG/ML Serum Alcohol 110 H <10 MG/DL Urine Color YELLOW Urine Clarity SL CLOUDY Urine pH 7.0 5-9 Urine Specific [place] 1.025 H 1.016-1.022 Urine Protein 3+ H NEGATIVE Urine Glucose (UA) NEGATIVE NEGATIVE Urine Ketones NEGATIVE NEGATIVE Urine Nitrite POSITIVE H NEGATIVE Urine Bilirubin NEGATIVE NEGATIVE Urine Urobilinogen 1.0 < = 1.0 MG/DL Urine Leukocyte Esterase 1+ H NEGATIVE Urine RBC (Auto) TRACE-I H NEGATIVE Urine RBC RARE /HPF Urine WBC 10-25 H /HPF Urine Squamous Epithelial Cells 2-5 /HPF Urine Crystals NONE /LPF Urine Bacteria MODERATE H /HPF Urine Casts NONE /LPF Urine Mucus NEGATIVE /LPF Urine Culture Indicated YES Urine Opiates Screen NEGATIVE NEGATIVE Urine Oxycodone Screen NEGATIVE NEGATIVE Urine Methadone Screen NEGATIVE NEGATIVE Urine Propoxyphene Screen NEGATIVE NEGATIVE Urine Barbiturates Screen NEGATIVE NEGATIVE Ur Tricyclic Antidepressants Screen NEGATIVE NEGATIVE Urine Phencyclidine Screen NEGATIVE NEGATIVE Urine Amphetamines Screen NEGATIVE NEGATIVE Urine Methamphetamines Screen NEGATIVE NEGATIVE Urine Benzodiazepines Screen POSITIVE H NEGATIVE Urine Cocaine Screen NEGATIVE NEGATIVE Urine Cannabinoids Screen POSITIVE H NEGATIVE My Orders Orders - ROSETTA WALTON MD Lorazepam Injection (Ativan Injection) (11/20/21 01:51) Thiamine Injection (Vitamin B-1 Injectio (11/20/21 01:51) Ed Iv/Invasive Line Start (11/20/21 02:02) Ns Iv 1000 Ml (Sodium Chloride 0.9%) (11/20/21 02:15) Folic Acid Injection (Folic Acid Injecti (11/20/21 02:02) Metoclopramide Injection (Reglan Injecti (11/20/21 02:03) Ciprofloxacin Iv 400mg/200ml (Cipro Iv S (11/20/21 02:06) Ed Admission (Communication) (11/20/21 02:13) Medications Given in ED Current Medications Medications Dose Ordered Sig/Zenaida Route Start Time Stop Time Status Last Admin Dose Admin Lorazepam 1 mg ONCE ONCE IVP 11/19/21 22:30 11/19/21 22:31 DC 11/19/21 22:43 1 MG Ondansetron HCl 4 mg ONCE ONCE IVP 11/19/21 22:30 11/19/21 22:31 DC 11/19/21 22:44 4 MG Vital Signs/I&O 11/19/21 11/20/21 11/20/21 11/20/21 21:37 04:10 04:10 04:37 Temp 36.9 36.9 Pulse 93 70 93 Resp 24 B/P (MAP) 148/108 (121) Pulse Ox 96 95 96 O2 Delivery Room Air Room Air Blood Pressure Mean: 121 Progress Progress Note : Progress Note 1. ALCOHOL WITHDRAWAL: - s. ETOH: 110 - UDS positive for benzos and marijuana. -Thiamine folic acid IV stat -NS IVF x2 stat -Ativan watch Ativan watch: 2 mg IV x2 stat: 2mg iv x2 given in ER - CIWA SCORING Q2H '- Zofran and then later Reglan - Discussed with Dr Fofana and will admit to ICU - Pt wants detox - ICU consult in the AM 2. UTI: - UA is positive for leukocyte esterase, nitrates, and bacteria. - CIpro iv STAT Departure Communication (Admissions) Time/Spoke to Admitting Phy: 02:[address] Fofana and will admit to ICU Impression Primary Impression: Alcohol withdrawal Qualified Codes: F10.239 - Alcohol dependence with withdrawal, unspecified Additional Impressions: UTI (urinary tract infection) Qualified Codes: N30.00 - Acute cystitis without hematuria Dehydration Disposition: 30 STILL A PATIENT Condition: Critical Admissions Decision to Admit Reason: Admit from ER (General) Decision to Admit/Date: November 20, 2021 Time/Decision to Admit Time: 01:50 Departure-Patient Inst. Referrals: [facility] (PCP/Family) Primary Care Physician Patient Instructions: ALCOHOL AND SUBSTANCE ABUSE ROSETTA WALTON MD November 20, 2021 02:06
[2021-11-20] MEDS ORDERED: NS IV 1000 ML 1,000 ML IV SCH (02:15)
[2021-11-20] MEDS: NS IV 1000 ML 1,000 ML IV SCH ×4 (04:10→20:47)
[2021-11-20 04:37] VITALS: BP 148/108
[2021-11-20] MEDS ORDERED: RT-ALBUTEROL/IPRATROPIUM 3 ML (DUONEB) VIAL INH PRN (05:00)
[2021-11-20] MEDS: POTASSIUM CL 10MEQ/50ML IVPB 50 ML IV SCH (05:05)
[2021-11-20] MEDS: KCL 20 MEQ TAB (K-DUR) PO SCH (05:06)
[2021-11-20] MEDS: MAGNESIUM 1 GM/100 ML IVPB 100 ML IV SCH (05:06)
[2021-11-20] MEDS: THIAMINE 100 MG/ML 2 ML (VITAMIN B-1) VIAL IV SCH (08:32)
[2021-11-20] MEDS: FOLIC ACID 5MG/ML 10 ML IV SCH (08:33)
--- NOTE | 2021-11-20 09:48 | Tele-ICU Consult ---
History of Present Illness History of Present Illness Date Seen by Provider: November 20, 2021 Time Seen by Provider: 09:47 Date of Admission (Tele-ICU Physician , consultation) Available chart/ vitals / labs / Images reviewed H&P is from ER notes Patient's information available about PMH, Shx, Fhx allergy reviewed in EMR. ROS as per chart and RN report Now in ICU, hemodynamically stable Video assessment done using teleICU camera, rest of exam as per RN Discussed with RN. Consultants: Hospital course: (11/20) 31yF admit Etoh withdrawl, UTI, Dehydration, UDS + benzo, marijauna A/P ETOH abuse / intoxication / pending withdrawal syndrome -No hallucinations. No seizures - monitor -Continue supportive care on CIWA protocol- cont benzo, prn precedex -monitor vitals -follow lytes -Thiamine and folate - will place NC with Co2 end-tidal for monitoring ventilation along with oxygenation UDS positive for benzos and marijuana. - monitor UTI: - UA is positive - CIpro PO Lines : (Central Line Necessity Reviewed) Vieira: OG: Nutrition: Analgesia: Anxiety/ delirium VTE Prophylaxis: Stress Ulcer Prophylaxis: Plans in collaboration with bedside consultants and IM MDs. Discussed with RN to reach out if any questions or concerns A total of _ minutes of critical care time was devoted to this patient today, required to treat and/or prevent further deterioration of critical care condition ( as above ) . Allergies and Home Medications Allergies Coded Allergies: Penicillins (Unverified Allergy, Mild, 04/11/09) amoxicillin (Unverified Allergy, Mild, UNKNOWN, 06/22/09) cefaclor (Unverified Allergy, Mild, 04/11/09) Home Medications Acetaminophen 325 Mg Capsule, 325 MG PO NEEDED, (Reported) Chlordiazepoxide HCl 25 Mg Capsule, 25 MG PO UD Day one 2 tablets every 8 hours Day two 2 tablets every 12 hours Day three 2 tablets in the morning Prescribed by: KATIA CARDOZA on 04/29/21 1133 Chlordiazepoxide HCl 25 Mg Capsule, 25 MG PO TID Day 1, 2 pills every 8 hours Day 2, 2 pills every 12 hours Day 3, 2 pills in the morning Prescribed by: FLORENTINO TIAN on 06/14/21 1747 Cyclobenzaprine HCl 10 Mg Tablet, 10 MG PO Q8H PRN for SPASMS Prescribed by: REGAN LOWE on 06/06/20 1051 Doxycycline Hyclate 100 Mg Tablet, 100 MG PO BID Prescribed by: REGAN LOWE on 02/26/21 180 Fluconazole 200 Mg Tablet, 200 MG PO ONCE Prescribed by: REGAN LOWE on 02/26/211806 Hydrocodone/Acetaminophen 1 Each Tablet, 1 TAB PO Q6H PRN for PAIN-MODERATE (5- 7) Prescribed by: REGAN LOWE on 02/26/21 180 Hydroxyzine Pamoate 25 Mg Capsule, 25 MG PO Q6H PRN for ANXIETY Prescribed by: VIVIAN NAIR on 12/03/16 1643 Lorazepam 2 Mg Tablet, 2 MG PO Q6H Prescribed by: KATIA CARDOZA on 04/29/21 1247 Metronidazole 500 Mg Tablet, 500 MG PO BID Prescribed by: MANUEL KHALIL on 12/26/20 1552 Nitrofurantoin Monohyd/M-Cryst 100 Mg Capsule, 1 TAB PO BID Prescribed by: BERNARD CONTRERAS on 05/07/20 1017 Sulfamethoxazole/Trimethoprim 1 Each Tablet, 1 EACH PO BID Prescribed by: REGAN LOWE on 02/26/211806 Past Medical/Social/Family Hx Patient Social History Tobacco Use?: No Smoking Status: Unknown if Ever Smoked Use of E-Cig and/or Vaping dev: No E-Cig and/or Vaping Freq: Unknown if Ever Used Substance use?: Yes Substance type: Marijuana, Other benzos Substance frequency: Daily Alcohol Use?: Yes Alcohol type: Hard Liquor Alcohol Frequency: Daily Pt stated abuse/neglect: No Immunizations Up To Date Influenza Vaccine Up-to-Date: No; Not Current First/Initial COVID19 Vaccinat: NONE Second COVID19 Vaccination Miko: NONE Tetanus Booster (TDap): Unknown Current Status Primary Language: Lao Preferred Spoken Language: Lao Review of Systems Constitutional: see HPI Focused Exam Height, Weight, BMI Height: 5'1.50" Weight: 204lbs. 2.0oz. 92.824277xu; 32.34 BMI Method:Stated Exam Exam Patient acknowledged, consented, and participated in this virtual visit which was conducted using real time audio/video Vital Signs Date Time Temp Pulse Resp B/P (MAP) Pulse Ox O2 Delivery O2 Flow Rate FiO2 11/20/21 09:00 59 15 99 Room Air 11/20/21 08:00 92 Room Air 11/20/21 08:00 36.9 11/20/21 08:00 58 11 86/59 96 Room Air 11/20/21 07:00 69 13 99/70 98 Room Air 11/20/21 07:00 67 11/20/21 06:00 62 12 113/66 96 Room Air 11/20/21 05:00 74 11 103/74 96 Room Air 11/20/21 04:37 36.9 93 96 11/20/21 04:10 95 Room Air 11/20/21 04:10 70 11/20/21 04:00 114/65 11/19/21 21:37 36.9 93 24 148/108 (121) 96 Room Air I & O0 11/20/21 07:00 Intake Total 0 ml Output Total 0 ml Balance 0 ml Height & Weight Height: 5'1.50" Weight: 204lbs. 2.0oz. 92.729317cf; 32.34 BMI Method:Stated General Appearance: No Apparent Distress Capillary Refill: Less Than 3 Seconds Gastrointestinal: normal bowel sounds, non tender, soft, no organomegaly Results Lab Laboratory Tests 11/19/21 21:15 Assessment/Plan Assessment/Plan ` VIDAL MAYORGA MD November 20, 2021 09:48
[2021-11-20] MEDS: LORazepam INJ 2 MG/ML (ATIVAN) VIAL IV PRN ×3 (10:13→20:47)
--- NOTE | 2021-11-20 10:58 | History & Physical ---
HPI History of Present Illness: 31 yo F with known alcoholism that presented to ER with symptoms of withdraw. States that her last drink was around 9-10 AM yesterday. She states that she recently got of rehab about a month ago in and she desires to go back to inpatient treatment. She does desire sobreity. Source: patient Date seen by provider: November 20, 2021 Time Seen by Provider: 10:40 Attending Physician Nancie Fofana MD [facility] Center/[facility] Consult Date of Admission November 20, 2021 at 02:00 Home Medications Home Medications Reviewed patient Home Medication Reconciliation performed by pharmacy medication reconciliations animal laboratory technician and/or nursing. Patients Allergies have been reviewed. Allergies Coded Allergies: Penicillins (Unverified Allergy, Mild, 04/11/09) amoxicillin (Unverified Allergy, Mild, UNKNOWN, 06/22/09) cefaclor (Unverified Allergy, Mild, 04/11/09) PKQ-Ddbhhp-Agespn Hx Patient Social History Drug of Choice: UDS + METH, BENZO'S, THC Smoking Status: Unknown if Ever Smoked 2nd Hand Smoke Exposure: No Recent Hopitalizations: No Alcohol Use?: Yes Substance type: Marijuana, Other Have you traveled recently?: No Immunizations Up To Date Tetanus Booster (TDap): More than 5yrs Influenza Vaccine Up-to-Date: No; Not Current First/Initial COVID19 Vaccinat: NONE Second COVID19 Vaccination Miko: NONE Third COVID19 Vaccination Date: NONE Past Medical History EtOHism Family Medical History Significant Family History: Cancer, Other Conditions/Hx Review of Systems ([facility]) Constitutional: malaise EENTM: no symptoms reported Respiratory: no symptoms reported Cardiovascular: palpitations Gastrointestinal: nausea Genitourinary: no symptoms reported Musculoskeletal: no symptoms reported Skin: no symptoms reported Psychiatric/Neurological: Anxiety, Depressed, Tremors Reviewed Test Results Reviewed Test Results Lab Laboratory Tests Test 11/19/21 21:15 11/19/21 23:15 Range/Units White Blood Count 5.7 4.3-11.0 10^3/uL Red Blood Count 4.18 3.80-5.11 10^6/uL Hemoglobin 10.9 L 11.5-16.0 g/dL Hematocrit 35 35-52 % Mean Corpuscular Volume 84 80-99 fL Mean Corpuscular Hemoglobin 26 25-34 pg Mean Corpuscular Hemoglobin Concent 31 L 32-36 g/dL Red Cell Distribution Width 16.6 H 10.0-14.5 % Platelet Count 350 130-400 10^3/uL Mean Platelet Volume 8.9 L 9.0-12.2 fL Immature Granulocyte % (Auto) 0 % Neutrophils (%) (Auto) 45 42-75 % Lymphocytes (%) (Auto) 40 12-44 % Monocytes (%) (Auto) 13 H 0-12 % Eosinophils (%) (Auto) 1 0-10 % Basophils (%) (Auto) 1 0-10 % Neutrophils # (Auto) 2.6 1.8-7.8 10^3/uL Lymphocytes # (Auto) 2.3 1.0-4.0 10^3/uL Monocytes # (Auto) 0.7 0.0-1.0 10^3/uL Eosinophils # (Auto) 0.1 0.0-0.3 10^3/uL Basophils # (Auto) 0.1 0.0-0.1 10^3/uL Immature Granulocyte # (Auto) 0.0 0.0-0.1 10^3/uL Sodium Level 141 135-145 MMOL/L Potassium Level 4.7 3.6-5.0 MMOL/L Chloride Level 102 98-107 MMOL/L Carbon Dioxide Level 23 21-32 MMOL/L Anion Gap 16 H 5-14 MMOL/L Blood Urea Nitrogen 13 7-18 MG/DL Creatinine 0.80 0.60-1.30 MG/DL Estimat Glomerular Filtration Rate 102 BUN/Creatinine Ratio 16 Glucose Level 92 70-105 MG/DL Calcium Level 9.3 8.5-10.1 MG/DL Corrected Calcium 9.1 8.5-10.1 MG/DL Total Bilirubin 0.8 0.1-1.0 MG/DL Aspartate Amino Transf (AST/SGOT) 134 H 5-34 U/L Alanine Aminotransferase (ALT/SGPT) 96 H 0-55 U/L Alkaline Phosphatase 86 40-136 U/L Total Protein 8.8 H 6.4-8.2 GM/DL Albumin 4.2 3.2-4.5 GM/DL Salicylates Level < 5.0 L 5.0-20.0 MG/DL Acetaminophen Level < 10 L 10-30 UG/ML Serum Alcohol 110 H <10 MG/DL Urine Color YELLOW Urine Clarity SL CLOUDY Urine pH 7.0 5-9 Urine Specific [place] 1.025 H 1.016-1.022 Urine Protein 3+ H NEGATIVE Urine Glucose (UA) NEGATIVE NEGATIVE Urine Ketones NEGATIVE NEGATIVE Urine Nitrite POSITIVE H NEGATIVE Urine Bilirubin NEGATIVE NEGATIVE Urine Urobilinogen 1.0 < = 1.0 MG/DL Urine Leukocyte Esterase 1+ H NEGATIVE Urine RBC (Auto) TRACE-I H NEGATIVE Urine RBC RARE /HPF Urine WBC 10-25 H /HPF Urine Squamous Epithelial Cells 2-5 /HPF Urine Crystals NONE /LPF Urine Bacteria MODERATE H /HPF Urine Casts NONE /LPF Urine Mucus NEGATIVE /LPF Urine Culture Indicated YES Urine Opiates Screen NEGATIVE NEGATIVE Urine Oxycodone Screen NEGATIVE NEGATIVE Urine Methadone Screen NEGATIVE NEGATIVE Urine Propoxyphene Screen NEGATIVE NEGATIVE Urine Barbiturates Screen NEGATIVE NEGATIVE Ur Tricyclic Antidepressants Screen NEGATIVE NEGATIVE Urine Phencyclidine Screen NEGATIVE NEGATIVE Urine Amphetamines Screen NEGATIVE NEGATIVE Urine Methamphetamines Screen NEGATIVE NEGATIVE Urine Benzodiazepines Screen POSITIVE H NEGATIVE Urine Cocaine Screen NEGATIVE NEGATIVE Urine Cannabinoids Screen POSITIVE H NEGATIVE Physical Exam-(CHC) Physical Exam Vital Signs VS - Last 72 Hours, by Label 11/19/21 11/20/21 11/20/21 11/20/21 21:37 04:00 04:10 04:10 Temp 36.9 Pulse 93 70 Resp 24 B/P (MAP) 148/108 (121) 114/65 Pulse Ox 96 95 O2 Delivery Room Air Room Air 11/20/21 11/20/21 11/20/21 11/20/21 04:37 05:00 06:00 07:00 Temp 36.9 Pulse 93 74 62 67 Resp 11 12 B/P (MAP) 103/74 113/66 Pulse Ox 96 96 96 O2 Delivery Room Air Room Air 11/20/21 11/20/21 11/20/21 11/20/21 07:00 08:00 08:00 08:00 Temp 36.9 Pulse 69 58 Resp 13 11 B/P (MAP) 99/70 86/59 Pulse Ox 98 96 92 O2 Delivery Room Air Room Air Room Air 11/20/21 11/20/21 11/20/21 11/20/21 09:00 10:00 11:00 12:00 Pulse 59 63 77 70 Resp 15 16 13 11 B/P (MAP) 107/69 102/76 109/75 Pulse Ox 99 93 94 97 O2 Delivery Room Air Room Air Room Air Room Air 11/20/21 11/20/21 11/20/21 11/20/21 12:00 12:43 13:00 14:00 Pulse 75 94 108 Resp 31 19 B/P (MAP) 107/55 131/99 Pulse Ox 93 O2 Delivery Room Air Room Air Room Air 11/20/21 11/20/21 11/20/21 11/20/21 15:00 15:59 16:00 16:00 Temp 36.5 Pulse 88 80 Resp 14 15 B/P (MAP) 108/79 103/73 Pulse Ox 95 O2 Delivery Room Air Room Air Room Air 11/20/21 11/20/21 17:00 18:00 Pulse 81 71 Resp 19 13 B/P (MAP) 96/61 112/69 O2 Delivery Room Air Room Air Capillary Refill : Less Than 3 Seconds General Appearance: WD/WN HEENT: PERRL/EOMI Neck: non-tender, full range of motion Respiratory: chest non-tender, lungs clear, normal breath sounds, no respiratory distress, no accessory muscle use Cardiovascular: normal peripheral pulses, regular rate, rhythm, no edema, no murmur Gastrointestinal: normal bowel sounds, non tender, soft Extremities: normal range of motion, no pedal edema, no calf tenderness Neurologic/Psychiatric: cat wagon operator II-XII nml as tested, alert, oriented x 3, other (tremor) Skin: normal color, warm/dry Assessment/Plan Assessment/Plan Admission Status: Inpatient Order (span 2 midnights) Reason for Inpatient Admission: h/o withdraw seizure requires close monitoring (1) Alcohol withdrawal Status: Acute Assessment & Plan: - CIWS, h/o withdraw seizure, ativan PRN, EULOGIO fraga placed to work on inpatient placement for rehab Qualifiers: Qualified Codes: F10.239 - Alcohol dependence with withdrawal, unspecified (2) Alcohol abuse Status: Acute (3) H/O tonic-clonic seizures NANCIE FOFANA MD November 20, 2021 10:58
[2021-11-20] MEDS: CIPROFLOXACIN IV 400MG/200ML 200 ML IV SCH (15:25)
[2021-11-21] MEDS: NS IV 1000 ML 1,000 ML IV SCH ×3 (02:53→07:55)
[2021-11-21] MEDS: CIPROFLOXACIN IV 400MG/200ML 200 ML IV SCH ×2 (04:18→15:26)
[2021-11-21 05:04] LABS: BASOPHILS % (AUTO) 1 % (0-10); EOSINOPHILS # (AUTO) 0.1 10^3/uL (0.0-0.3); EOSINOPHILS % (AUTO) 3 % (0-10); HEMATOCRIT 33 % (35-52); HEMOGLOBIN 9.9 g/dL (11.5-16.0); LYMPHOCYTES # (AUTO) 1.7 10^3/uL (1.0-4.0); LYMPHOCYTES % (AUTO) 50 % (12-44); MEAN CORPUSCULAR HEMOGLOBIN 26 pg (25-34); MEAN CORPUSCULAR HGB CONC 31 g/dL (32-36); MEAN CORPUSCULAR VOLUME 84 fL (80-99); MONOCYTES # (AUTO) 0.5 10^3/uL (0.0-1.0); MONOCYTES % (AUTO) 14 % (0-12); NEUTROPHILS # (AUTO) 1.1 10^3/uL (1.8-7.8); NEUTROPHILS % (AUTO) 32 % (42-75); PLATELET COUNT 241 10^3/uL (130-400); WHITE BLOOD COUNT 3.5 10^3/uL (4.3-11.0)
[2021-11-21 05:36] LABS: ALBUMIN 3.2 GM/DL (3.2-4.5)
[2021-11-21 05:37] LABS: CALCIUM 8.3 MG/DL (8.5-10.1)
[2021-11-21 05:39] LABS: TOTAL PROTEIN 6.6 GM/DL (6.4-8.2)
[2021-11-21 05:42] LABS: CREATININE SERUM 0.65 MG/DL (0.60-1.30); PHOSPHORUS 3.5 MG/DL (2.3-4.7)
[2021-11-21 05:45] LABS: MAGNESIUM 1.8 MG/DL (1.6-2.4)
[2021-11-21] MEDS: POTASSIUM CL 10MEQ/50ML IVPB 50 ML IV SCH (06:08)
[2021-11-21] MEDS: KCL 20 MEQ TAB (K-DUR) PO SCH (06:08)
[2021-11-21] MEDS: MAGNESIUM 1 GM/100 ML IVPB 100 ML IV SCH (06:08)
[2021-11-21] MEDS: THIAMINE 100 MG/ML 2 ML (VITAMIN B-1) VIAL IV SCH (07:54)
[2021-11-21] MEDS: FOLIC ACID 5MG/ML 10 ML IV SCH (07:54)
--- NOTE | 2021-11-21 08:34 | Tele-ICU Progress Note ---
Subjective Date Seen by a Provider: November 21, 2021 Time Seen by a Provider: 08:34 Subjective/Events-last exam Patient today more oriented and denies any headache or tremors. Vital signs are stable. Sepsis Event Evaluation Height, Weight, BMI Height: 5'1.50" Weight: 204lbs. 2.0oz. 92.314650kv; 32.34 BMI Method:Stated Exam Exam Patient acknowledged, consented, and participated in this virtual visit which was conducted using real time audio/video Vital Signs Date Time Temp Pulse Resp B/P (MAP) Pulse Ox O2 Delivery O2 Flow Rate FiO2 11/21/21 08:00 36.4 11/21/21 07:35 98 Room Air 0.00 11/21/21 07:00 73 11/21/21 04:21 99 Room Air 11/21/21 02:55 36.5 Room Air 11/21/21 01:00 64 11/21/21 00:00 70 13 118/88 98 Room Air 11/21/21 00:00 97 Room Air 11/20/21 23:00 75 14 102/66 98 Room Air 11/20/21 22:55 36.6 96 Room Air 11/20/21 22:00 82 15 101/63 97 Room Air 11/20/21 21:00 78 17 117/81 98 Room Air 11/20/21 20:00 81 17 110/87 99 Room Air 11/20/21 20:00 98 Room Air 11/20/21 19:59 36.4 11/20/21 19:00 79 11/20/21 19:00 79 21 93/68 98 Room Air 11/20/21 18:00 71 13 112/69 Room Air 11/20/21 17:00 81 19 96/61 Room Air 11/20/21 16:00 80 15 103/73 Room Air 11/20/21 16:00 95 Room Air 11/20/21 15:59 36.5 11/20/21 15:00 88 14 108/79 Room Air 11/20/21 14:00 108 19 131/99 Room Air 11/20/21 13:00 94 31 107/55 Room Air 11/20/21 12:43 75 11/20/21 12:00 93 Room Air 11/20/21 12:00 70 11 109/75 97 Room Air 11/20/21 11:00 77 13 102/76 94 Room Air 11/20/21 10:00 63 16 107/69 93 Room Air 11/20/21 09:00 59 15 99 Room Air I & O 11/21/21 07:00 Intake Total 3160 ml Balance 3160 ml Height & Weight Height: 5'1.50" Weight: 204lbs. 2.0oz. 92.247891sg; 32.34 BMI Method:Stated General Appearance: No Apparent Distress Capillary Refill: Less Than 3 Seconds Gastrointestinal: normal bowel sounds, non tender, soft Other comments PE PER RN Results Lab Laboratory Tests 11/19/21 21:15 11/21/21 04:55 Assessment/Plan Assessment/Plan 1. Alcohol intoxication under withdrawal syndrome improving 2. Marijuana abuse. 3.Suspected alcohol withdrawal seizures Recommendations 1. Give her thiamine and folic acid 2. CIWA protocol 3. Gastric prophylaxis 4. From critical care point of view she may be transferred to medical floor. Critical Care: Critically Ill Patient Time spent with patient (mins): 25 MINNA BONILLA MD November 21, 2021 08:34
--- NOTE | 2021-11-21 10:44 | Progress Note ---
Subjective Subjective/Events-last exam Patient feeling better this AM. Tolerating PO diet and ambulation. Will transfer to floor today Review of Systems Pulmonary: No Dyspnea, No Cough Cardiovascular: No: Chest Pain, Palpitations Gastrointestinal: Nausea; No: Vomiting, Abdominal Pain Neurological: Other (mild tremors) Objective Exam Last Set of Vital Signs Vital Signs Date Time Temp Pulse Resp B/P (MAP) Pulse Ox O2 Delivery O2 Flow Rate FiO2 11/21/21 08:00 96 Room Air 11/21/21 08:00 36.4 11/21/21 07:35 0.00 11/21/21 07:00 73 11/21/21 02:55 11/21/21 00:00 13 Capillary Refill : Less Than 3 Seconds I&O Intake and Output 11/21/21 00:00 Intake Total 1680 ml Output Total 0 ml Balance 1680 ml Intake Oral 480 ml IV Total 1200 ml Output Urine Total 0 ml # Voids 5 Daily Weight Change No General: Alert, Oriented X3, No Acute Distress Lungs: Clear to Auscultation, Normal Air Movement Heart: Regular Rate, No Murmurs Abdomen: Normal Bowel Sounds, Soft, No Tenderness, No Masses Extremities: No Edema, No Tenderness/Swelling Neuro: Normal Speech, Other (mild bilateral UE tremors) Results/Procedures Lab Laboratory Tests 11/21/21 04:55: White Blood Count 3.5L, Red Blood Count 3.88, Hemoglobin 9.9L, Hematocrit 33L, Mean Corpuscular Volume 84, Mean Corpuscular Hemoglobin 26, Mean Corpuscular Hemoglobin Concent 31L, Red Cell Distribution Width 16.0H, Platelet Count 241, Mean Platelet Volume 9.0, Immature Granulocyte % (Auto) 0, Neutrophils (%) (Auto) 32L, Lymphocytes (%) (Auto) 50H, Monocytes (%) (Auto) 14H, Eosinophils (%) (Auto) 3, Basophils (%) (Auto) 1, Neutrophils # (Auto) 1.1L, Lymphocytes # (Auto) 1.7, Monocytes # (Auto) 0.5, Eosinophils # (Auto) 0.1, Basophils # (Auto) 0.0, Immature Granulocyte # (Auto) 0.0, Sodium Level 137, Potassium Level 4.0, Chloride Level 108H, Carbon Dioxide Level 19L, Anion Gap 10, Blood Urea Nitrogen 8, Creatinine 0.65, Estimat Glomerular Filtration Rate 121, BUN/Creatinine Ratio 12, Glucose Level 93, Calcium Level 8.3L, Corrected Calcium 8.9, Phosphorus Level 3.5, Magnesium Level 1.8, Total Bilirubin 1.0, Aspartate Amino Transf (AST/SGOT) 63H, Alanine Aminotransferase (ALT/SGPT) 57H, Alkaline Phosphatase 72, Total Protein 6.6, Albumin 3.2 Microbiology 11/19/21 Urine Culture - Preliminary, Resulted Escherichia coli Assessment/Plan Assessment/Plan (1) Alcohol withdrawal Status: Acute Assessment & Plan: - CIWS, h/o withdraw seizure, ativan PRN, EULOGIO fraga placed to work on inpatient placement for rehab 11/21: Decreasing ativan needs, Will transfer to Med/surg, switch meds to PO, FA and thiamine continued Qualifiers: Qualified Codes: F10.239 - Alcohol dependence with withdrawal, unspecified (2) Alcohol abuse Status: Acute (3) H/O tonic-clonic seizures NANCIE HAILE MD November 21, 2021 10:44
[2021-11-21] MEDS ORDERED: ONDANSETRON 4 MG/2 ML (SDV) Z0FRAN IVP PRN (10:45)
[2021-11-21] MEDS ORDERED: ACETAMINOPHEN 325 MG TABLET ONE (12:21)
[2021-11-21] MEDS: ACETAMINOPHEN 325 MG TABLET PO PRN ×2 (12:26→23:11)
[2021-11-21] MEDS ORDERED: ONDANSETRON 4 MG (ZOFRAN) ORAL DISSOLVE TAB SL PRN (14:00)
[2021-11-21] MEDS ORDERED: 1/2 NS IV SOLUTION 1,000 ML IV PRN (14:00)
[2021-11-21] MEDS ORDERED: D5 1/2 NS 1000 ML IV SOLUTION 1,000 ML IV PRN (14:00)
[2021-11-21] MEDS ORDERED: SENNA W/DOCUSATE (SENOKOT S) TABLET PO PRN (14:00)
[2021-11-21] MEDS ORDERED: LORazepam INJ 2 MG/ML (ATIVAN) VIAL IM/IV PRN (14:00)
[2021-11-21] MEDS ORDERED: ANTACID SUSP 30 ML UDC (MYLANTA) PO PRN (14:00)
[2021-11-21] MEDS: LORazepam 1 MG (ATIVAN) TAB PO PRN ×2 (14:11→23:11)
[2021-11-21] MEDS ORDERED: HYDROCORTISONE 1% CREAM 30 GM TUBE TOP PRN (17:00)
[2021-11-22] MEDS: CIPROFLOXACIN IV 400MG/200ML 200 ML IV SCH (04:28)
--- NOTE | 2021-11-22 05:51 | Progress Note - Hospitalist ---
Subjective HPI/CC On Admission Date Seen by Provider: November 22, 2021 Time Seen by Provider: 09:00 Subjective/Events-last exam Pt is in bed with her significant other male partner sleeping Pt is set for placement for rehab on Thursday Overall no issues Objective Exam Vital Signs Vital Signs Date Time Temp Pulse Resp B/P (MAP) Pulse Ox O2 Delivery O2 Flow Rate FiO2 11/22/21 17:13 37.1 100 18 110/72 97 Room Air 0.00 Capillary Refill : Less Than 3 Seconds General Appearance: No Apparent Distress, WD/WN, Chronically ill Results/Procedures Lab Laboratory Tests 11/22/21 07:36 Patient resulted labs reviewed. Assessment/Plan Critical Care Critically Ill Patient ENOCH RAMESH DO November 22, 2021 05:51
[2021-11-22] MEDS ORDERED: THIAMINE 100 MG (VITAMIN B-1) TAB PO SCH (07:00)
[2021-11-22 07:41] LABS: BASOPHILS % (AUTO) 1 % (0-10); EOSINOPHILS # (AUTO) 0.1 10^3/uL (0.0-0.3); EOSINOPHILS % (AUTO) 2 % (0-10); HEMATOCRIT 37 % (35-52); HEMOGLOBIN 11.2 g/dL (11.5-16.0); LYMPHOCYTES # (AUTO) 1.8 10^3/uL (1.0-4.0); LYMPHOCYTES % (AUTO) 43 % (12-44); MEAN CORPUSCULAR HEMOGLOBIN 26 pg (25-34); MEAN CORPUSCULAR HGB CONC 31 g/dL (32-36); MEAN CORPUSCULAR VOLUME 84 fL (80-99); MEAN PLATELET VOLUME 9.5 fL (9.0-12.2); MONOCYTES # (AUTO) 0.5 10^3/uL (0.0-1.0); MONOCYTES % (AUTO) 13 % (0-12); NEUTROPHILS # (AUTO) 1.8 10^3/uL (1.8-7.8); NEUTROPHILS % (AUTO) 42 % (42-75); PLATELET COUNT 309 10^3/uL (130-400); WHITE BLOOD COUNT 4.3 10^3/uL (4.3-11.0)
[2021-11-22 08:07] LABS: ALBUMIN 3.9 GM/DL (3.2-4.5); BILIRUBIN,TOTAL 0.5 MG/DL (0.1-1.0); CALCIUM 9.3 MG/DL (8.5-10.1); CREATININE SERUM 0.72 MG/DL (0.60-1.30); MAGNESIUM 1.9 MG/DL (1.6-2.4); POTASSIUM 4.1 MMOL/L (3.6-5.0); TOTAL PROTEIN 7.9 GM/DL (6.4-8.2)
[2021-11-22] MEDS: ACETAMINOPHEN 325 MG TABLET PO PRN (08:43)
[2021-11-22] MEDS: LORazepam 1 MG (ATIVAN) TAB PO PRN (08:43)
[2021-11-22] MEDS ORDERED: FOLIC ACID 1 MG TAB PO SCH (09:00)
[2021-11-22 11:07] VITALS: BP 103/71
[2021-11-22 16:03] VITALS: BP 106/73
[2021-11-22] MEDS ORDERED: CIPR500T5 PO (16:50)
[2021-11-22] MEDS ORDERED: ONDA4TAB11 PO (16:50)
--- NOTE | 2021-11-22 16:51 | Discharge Summary ---
Discharge Summary Hospital Course Was the Problem List Reviewed?: Yes Problems/Dx: (1) Alcohol withdrawal Status: Acute Qualifiers: Qualified Codes: F10.239 - Alcohol dependence with withdrawal, unspecified Hospital Course Date of Admission: November 20, 2021 at 02:00 Admission Diagnosis : Family Physician/Provider: Flako/Dorothy,[facility] Date of Discharge: 11/22/21 Discharge Diagnosis: Alcohol withdrawal, sexually transmitted disease Hospital Course: Brief hospital course. Patient was admitted for alcohol detox in preparation for rehab. UTI diagnosed and treated with Cipro. Patient decided it was time to go and she requested discharge. Labs and Pending Lab Test: Laboratory Tests 11/21/21 16:55: Iron Level 68, Total Iron Binding Capacity 363H, Unsaturated Iron Binding Capacity 295, Transferrin % Saturation 19, Ferritin 59.3 11/22/21 07:36: White Blood Count 4.3, Red Blood Count 4.34, Hemoglobin 11.2L, Hematocrit 37, Mean Corpuscular Volume 84, Mean Corpuscular Hemoglobin 26, Mean Corpuscular Hemoglobin Concent 31L, Red Cell Distribution Width 16.1H, Platelet Count 309, Mean Platelet Volume 9.5, Immature Granulocyte % (Auto) 0, Neutrophils (%) (Auto) 42, Lymphocytes (%) (Auto) 43, Monocytes (%) (Auto) 13H, Eosinophils (%) (Auto) 2, Basophils (%) (Auto) 1, Neutrophils # (Auto) 1.8, Lymphocytes # (Auto) 1.8, Monocytes # (Auto) 0.5, Eosinophils # (Auto) 0.1, Basophils # (Auto) 0.0, Immature Granulocyte # (Auto) 0.0, Sodium Level 138, Potassium Level 4.1, Chloride Level 105, Carbon Dioxide Level 18L, Anion Gap 15H, Blood Urea Nitrogen 12, Creatinine 0.72, Estimat Glomerular Filtration Rate 115, BUN/Creatinine Ratio 17, Glucose Level 85, Calcium Level 9.3, Corrected Calcium 9.4, Phosphorus Level 5.0H, Magnesium Level 1.9, Total Bilirubin 0.5, Aspartate Amino Transf (AST/SGOT) 75H, Alanine Aminotransferase (ALT/SGPT) 68H, Alkaline Phosphatase 75, Total Protein 7.9, Albumin 3.9 Microbiology 11/19/21 Urine Culture - Final, Complete Escherichia coli Enterococcus faecalis Home Meds Active Ondansetron Odt (Ondansetron) 4 Mg Tab.rapdis 4 Mg PO Q6H Ciprofloxacin HCl 500 Mg Tablet 500 Mg PO BID Assessment/Pt Instructions PCP in 1 week Discharge Planning: <30 minutes discharge planning Discharge Instructions Discharge Diet: No Restrictions Discharge Physical Examination Vital Signs Vital Signs Date Time Temp Pulse Resp B/P (MAP) Pulse Ox O2 Delivery O2 Flow Rate FiO2 11/22/21 16:03 36.8 92 18 106/73 (84) 97 Room Air 11/22/21 08:22 0.00 General Appearance: Chronically ill Allergies: Coded Allergies: Penicillins (Unverified Allergy, Mild, 04/11/09) amoxicillin (Unverified Allergy, Mild, UNKNOWN, 06/22/09) cefaclor (Unverified Allergy, Mild, 04/11/09) Discharge Summary Date of Admission November 20, 2021 at 02:00 Date of Discharge Discharge Date: November 22, 2021 ENOCH RAMESH DO November 22, 2021 16:51
[2021-11-22 16:57] VITALS: BP 110/72
[2021-11-22 17:13] VITALS: BP 110/72
[2021-11-22] MEDS ORDERED: CIPROFLOXACIN 500 MG (CIPRO) TABLET PO SCH (21:00)
== END 2021-11-22 17:20 | disposition home or self-care (01) | DRG 897 ==
LOC: EDUNIT# 21:09 → ER 21:12 → ICU 11-20 02:00 → EDLOC 11-20 02:00 → 4TH 11-21 11:17
PROVIDERS: ADMIT Family Medicine; ATTEND Internal Medicine
DX: F10.239 Alcohol dependence with withdrawal, unspecified (principal); N39.0 Urinary tract infection, site not specified; F10.229 Alcohol dependence with intoxication, unspecified; F13.90 Sedative, hypnotic, or anxiolytic use, unspecified, uncomplicated; Y90.5 Blood alcohol level of 100-119 mg/100 ml; E86.0 Dehydration; Z79.899 Other long term (current) drug therapy; J45.909 Unspecified asthma, uncomplicated; F41.9 Anxiety disorder, unspecified; F32.A Depression, unspecified; F43.10 Post-traumatic stress disorder, unspecified; F12.10 Cannabis abuse, uncomplicated; G40.409 Other generalized epilepsy and epileptic syndromes, not intractable, without status epilepticus
CPT/HCPCS: 36415; 80053; 80306; 80320; 80329; 81000; 82728; 83540; 83550; 83735; 84100; 84703; 85025; 87077; 87088; 87186; 93005; 96374; 96375; 96376

== ENCOUNTER 2022-03-10 09:13 | Emergency (ER) | payer OTHER ==
[~2022-03-10] VITALS: Ht 157.4 cm; Wt 66.0 kg
[~2022-03-10 09:13] MED LIST changes: +CIPR500T5 PO; +ONDA4TAB11 PO
[2022-03-10] MEDS ORDERED: ONDANSETRON 4 MG/2 ML (SDV) Z0FRAN IV PRN (09:45)
[2022-03-10] MEDS ORDERED: LACTATED RINGERS 1,000 ML IV ONE (09:45)
[2022-03-10] MEDS ORDERED: ACETAMINOPHEN 500 MG TAB (TYLENOL) PO PRN (09:45)
--- NOTE | 2022-03-10 09:54 | ED General ---
General Chief Complaint: COVID19 Suspect/Confirmed Stated Complaint: COUGH,BODY ACHES, FEVER, Source of Information: Patient Exam Limitations: No Limitations History of Present Illness Date Seen by Provider: Mar 10, 2022 Time Seen by Provider: 09:30 Initial Comments 31-year-old female presents feeling she may have COVID and also for alcohol withdrawal. She has been in and out of alcohol rehab several times in the last several years. She states she had relapse but is trying to quit drinking once again. She has not had a drink since about 430 this morning. She describes feeling jittery, shaky and anxious. She also states she started to have a fever through the evening. No known sick contacts. She has had a dry nonproductive cough. No chest pain. She has diffuse abdominal cramping without any focal abdominal tenderness. Does endorse that she has had some nonbloody loose stools as well. No vaginal symptoms. No urinary symptoms. Allergies and Home Medications Allergies Coded Allergies: Penicillins (Unverified Allergy, Mild, 04/11/09) amoxicillin (Unverified Allergy, Mild, UNKNOWN, 06/22/09) cefaclor (Unverified Allergy, Mild, 04/11/09) Patient Home Medication List Home Medication List Reviewed: Yes Ciprofloxacin HCl (Ciprofloxacin HCl) 500 Mg Tablet, 500 MG PO BID Prescribed by: ENOCH RAMESH on 11/22/211649 Ondansetron (Ondansetron Odt) 4 Mg Tab.rapdis, 4 MG PO Q6H Prescribed by: ENOCH RAMESH on 11/22/21 165 Review of Systems Review of Systems Constitutional: chills, fever, malaise EENTM: see HPI Respiratory: cough Cardiovascular: no symptoms reported Gastrointestinal: abdominal pain, nausea, vomiting Genitourinary: no symptoms reported Musculoskeletal: muscle cramps Skin: no symptoms reported Psychiatric/Neurological: Anxiety Hematologic/Lymphatic: No Symptoms Reported Immunological/Allergic: no symptoms reported Past [id number]-[id number] Hx Patient Social History Tobacco Use?: No Substance use?: No Alcohol Use?: Yes Immunizations Up To Date Tetanus Booster (TDap): More than 5yrs First/Initial COVID19 Vaccinat: NONE Second COVID19 Vaccination Miko: NONE Third COVID19 Vaccination Date: NONE Seasonal Allergies Seasonal Allergies: No Past Medical History Surgery/Hospitalization HX: X 5 LAPAROSCOPY BILATERAL TUBAL LIGATION D AND C Surgeries: Yes ("BLADDER STRETCHED", LAPAROSCOPY, D&C) Abdominal, Section, Tubal Ligation Respiratory: Yes Asthma Cardiac: Yes Heart Murmur, Palpitations Neurological: Yes Seizure Disorder Reproductive Disorders: Yes (ENDOMETRIOSIS) Female Reproductive Disorders: Endometriosis Sexually Transmitted Disease: Yes (PID) Genitourinary: Yes Kidney Infection, Kidney Stones, UTI-Chronic Gastrointestinal: No Musculoskeletal: No Endocrine: No HEENT: No Cancer: No Psychosocial: Yes Anxiety, PTSD, Depression Integumentary: No Blood Disorders: No Family Medical History Reviewed Nursing Family Hx No Pertinent Family Hx, Cancer, Other Conditions/Hx Physical Exam Vital Signs Vital Signs - First Documented 03/10/22 03/10/22 09:50 09:55 Temp 39.9 Pulse 100 Resp 18 B/P (MAP) 112/68 (83) Pulse Ox 96 O2 Delivery Room Air Capillary Refill : Height, Weight, BMI Height: 5'1.50" Weight: 204lbs. 2.0oz. 92.867880zv; 32.34 BMI Method:Stated General Appearance: No Apparent Distress, WD/WN HEENT: PERRL/EOMI, TMs Normal, Normal ENT Inspection, Pharynx Normal Neck: Normal Inspection, Non Tender, Supple Respiratory: Chest Non Tender, Lungs Clear, Normal Breath Sounds, No Accessory Muscle Use, No Respiratory Distress Cardiovascular: No Edema, No Gallop, No JVD, No Murmur, Normal Peripheral Pulses, Tachycardia Gastrointestinal: Other (Diffuse mild abdominal tenderness with voluntary guarding. No rebound tenderness. No mass organomegaly. 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 Norm as Tested Skin: Normal Color, Warm/Dry Lymphatic: No Adenopathy Focused Exam Lactate Level 03/10/22 09:55: Lactic Acid Level 2.70*H 03/10/22 11:50: Lactic Acid Level 2.45*H 03/10/22 13:27: Lactic Acid Level 1.77 Lactic Acid Level Laboratory Tests Test 03/10/22 09:55 03/10/22 11:50 03/10/22 13:27 Lactic Acid Level 2.70 MMOL/L (0.50-2.00) *H 2.45 MMOL/L (0.50-2.00) *H 1.77 MMOL/L (0.50-2.00) Progress/Results/Core Measures Suspected Sepsis SIRS Temperature: Pulse: Respiratory Rate: Laboratory Tests 03/10/22 09:55: White Blood Count 5.7 Blood Pressure / Mean: 03/10/22 09:55: Lactic Acid Level 2.70*H 03/10/22 11:50: Lactic Acid Level 2.45*H 03/10/22 13:27: Lactic Acid Level 1.77 Laboratory Tests 03/10/22 09:55: Creatinine 0.72, Platelet Count 187, Total Bilirubin 0.3 Results/Orders Lab Results Laboratory Tests Test 03/10/22 09:24 03/10/22 09:55 03/10/22 10:09 03/10/22 10:45 Range/Units SARS-CoV-2 RNA (RT-PCR) Not Detected Not Detecte White Blood Count 5.7 4.3-11.0 10^3/uL Red Blood Count 4.12 3.80-5.11 10^6/uL Hemoglobin 11.1 L 11.5-16.0 g/dL Hematocrit 35 35-52 % Mean Corpuscular Volume 84 80-99 fL Mean Corpuscular Hemoglobin 27 25-34 pg Mean Corpuscular Hemoglobin Concent 32 32-36 g/dL Red Cell Distribution Width 17.7 H 10.0-14.5 % Platelet Count 187 130-400 10^3/uL Mean Platelet Volume 9.1 9.0-12.2 fL Immature Granulocyte % (Auto) 0 % Neutrophils (%) (Auto) 84 H 42-75 % Lymphocytes (%) (Auto) 10 L 12-44 % Monocytes (%) (Auto) 5 0-12 % Eosinophils (%) (Auto) 0 0-10 % Basophils (%) (Auto) 0 0-10 % Neutrophils # (Auto) 4.7 1.8-7.8 10^3/uL Lymphocytes # (Auto) 0.6 L 1.0-4.0 10^3/uL Monocytes # (Auto) 0.3 0.0-1.0 10^3/uL Eosinophils # (Auto) 0.0 0.0-0.3 10^3/uL Basophils # (Auto) 0.0 0.0-0.1 10^3/uL Immature Granulocyte # (Auto) 0.0 0.0-0.1 10^3/uL Sodium Level 138 135-145 MMOL/L Potassium Level 3.5 L 3.6-5.0 MMOL/L Chloride Level 102 98-107 MMOL/L Carbon Dioxide Level 21 21-32 MMOL/L Anion Gap 15 H 5-14 MMOL/L Blood Urea Nitrogen 6 L 7-18 MG/DL Creatinine 0.72 0.60-1.30 MG/DL Estimat Glomerular Filtration Rate 115 BUN/Creatinine Ratio 8 Glucose Level 109 H 70-105 MG/DL Lactic Acid Level 2.70 *H 0.50-2.00 MMOL/L Calcium Level 8.6 8.5-10.1 MG/DL Corrected Calcium 9.0 8.5-10.1 MG/DL Total Bilirubin 0.3 0.1-1.0 MG/DL Aspartate Amino Transf (AST/SGOT) 65 H 5-34 U/L Alanine Aminotransferase (ALT/SGPT) 54 0-55 U/L Alkaline Phosphatase 83 40-136 U/L Total Protein 7.5 6.4-8.2 GM/DL Albumin 3.5 3.2-4.5 GM/DL Serum Test, Qualitative NEGATIVE NEGATIVE Urine Color YELLOW Urine Clarity CLEAR Urine pH 7.5 5-9 Urine Specific [place] 1.015 L 1.016-1.022 Urine Protein 1+ H NEGATIVE Urine Glucose (UA) NEGATIVE NEGATIVE Urine Ketones NEGATIVE NEGATIVE Urine Nitrite NEGATIVE NEGATIVE Urine Bilirubin NEGATIVE NEGATIVE Urine Urobilinogen 0.2 < = 1.0 MG/DL Urine Leukocyte Esterase 1+ H NEGATIVE Urine RBC (Auto) 1+ H NEGATIVE Urine RBC NONE /HPF Urine WBC 5-10 H /HPF Urine Squamous Epithelial Cells RARE /HPF Urine Crystals NONE /LPF Urine Bacteria FEW H /HPF Urine Casts NONE /LPF Urine Mucus NEGATIVE /LPF Urine Culture Indicated YES Test 03/10/22 11:50 03/10/22 13:27 Range/Units Lactic Acid Level 2.45 *H 1.77 0.50-2.00 MMOL/L My Orders Orders - ARELI CASTAÑEDA DO Cbc With Automated Diff (03/10/22 09:38) Comprehensive Metabolic Panel (03/10/22 09:38) Blood Culture (03/10/22 09:38) Urinalysis (03/10/22 09:38) Urine Culture (03/10/22 09:38) Chest 1 View, Ap/Pa Only (03/10/22 09:38) Acetaminophen Tablet (Tylenol Tablet) (03/10/22 09:45) Ed Iv/Invasive Line Start (03/10/22 09:38) Vital Signs Adult Sepsis Patie Q15M (03/10/22 09:38) Ondansetron Injection (Zofran Injectio (03/10/22 09:45) Lactic Acid Analyzer (03/10/22 09:38) Lactated Ringers (Lr 1000 Ml Iv Solution (03/10/22 09:45) Covid 19 Inhouse Test (03/10/22 09:54) Hcg,Qualitative Serum (03/10/22 09:54) Lactic Acid Analyzer (03/10/22 11:52) Ns Iv 1000 Ml (Sodium Chloride 0.9%) (03/10/22 12:27) Diazepam Tablet (Valium Tablet) (03/10/22 12:45) Lactic Acid Analyzer (03/10/22 13:25) Medications Given in ED Current Medications Medications Dose Ordered Sig/Zenaida Route Start Time Stop Time Status Last Admin Dose Admin Acetaminophen 1,000 mg ONCE PRN PO 03/10/22 09:45 03/10/22 09:50 DC 03/10/22 09:50 1,000 MG Diazepam 5 mg ONCE ONCE PO 03/10/22 12:45 03/10/22 12:46 DC 03/10/22 12:36 5 MG Lactated Ringer's 1,000 ml @ 0 mls/hr Q0M ONCE IV 03/10/22 09:45 03/10/22 09:46 DC 03/10/22 09:47 1,000 MLS/HR Ondansetron HCl 4 mg PRN PRN IV 03/10/22 09:45 03/10/22 09:50 DC 03/10/22 09:50 4 MG Sodium Chloride 1,000 ml @ ud STK-MED ONCE .ROUTE 03/10/22 12:27 03/10/22 12:30 DC 03/10/22 12:30 1,000 MLS/HR Vital Signs/I&O 03/10/22 03/10/22 03/10/22 09:50 09:55 10:54 Temp 39.9 39.9 37.3 Pulse 100 Resp 18 B/P (MAP) 112/68 (83) Pulse Ox 96 O2 Delivery Room Air Capillary Refill : Departure Communication (Admissions) Patient is initially tachycardic, no chills. Improved with IV fluids and Valium. She is feeling much better. She declines inpatient withdrawal treatment as she states it has not worked for her in the past. We will go ahead and discharge her with a taper of Librium. Also has a UTI which is likely the source of her fever. COVID test is negative. Given antibiotics upon discharge. Also given nausea medicine for withdrawal symptoms. Discharged in stable condition. Questions were sought and answered. Impression Primary Impression: Dehydration Additional Impressions: Alcohol withdrawal Qualified Codes: F10.930 - Alcohol use, unspecified with withdrawal, uncomplicated UTI (urinary tract infection) Qualified Codes: N30.00 - Acute cystitis without hematuria Disposition: HOME, SELF-CARE Condition: Stable Departure-Patient Inst. Referrals: [facility] [place] Primary Care Physician Patient Instructions: Urinary Tract Infections in Adults, Alcohol Withdrawal Add. Discharge Instructions: Please take the antibiotics as prescribed until they are gone. Use the Librium, chlordiazepoxide as prescribed until it is gone. Do not drink while taking this. Use the nausea medicine by dissolving under your tongue as needed. Return to the emergency department for any severe concerns. Follow-up with your primary physician for any nonemergent needs. All discharge instructions reviewed with patient and/or family. Voiced unders tanding. Scripts Chlordiazepoxide HCl (Chlordiazepoxide HCl) 25 Mg Capsule 50 MG PO Q6H for 8 Days, #26 CAP 0 Refills 50mg po q6h x2 days, then 50 mg po q12h x2 days, then 50 mg po daily x2 days, then 25mg po daily x2 days Prov: ARELI CASTAÑEDA DO 03/10/22 Ondansetron (Ondansetron Odt) 4 Mg Tab.rapdis 4 MG PO Q6H for Nausea for 7 Days, #30 TAB Prov: ARELI CASTAÑEDA DO 03/10/22 Ciprofloxacin HCl (Cipro) 500 Mg Tablet 500 MG PO BID for 7 Days, #14 TAB Prov: ARELI CASTAÑEDA DO 03/10/22 ARELI CASTAÑEDA DO Mar 10, 2022 09:54
[2022-03-10 10:00] LABS: BASOPHILS % (AUTO) 0 % (0-10); EOSINOPHILS % (AUTO) 0 % (0-10); HEMATOCRIT 35 % (35-52); HEMOGLOBIN 11.1 g/dL (11.5-16.0); LYMPHOCYTES # (AUTO) 0.6 10^3/uL (1.0-4.0); LYMPHOCYTES % (AUTO) 10 % (12-44); MEAN CORPUSCULAR HEMOGLOBIN 27 pg (25-34); MEAN CORPUSCULAR HGB CONC 32 g/dL (32-36); MEAN CORPUSCULAR VOLUME 84 fL (80-99); MEAN PLATELET VOLUME 9.1 fL (9.0-12.2); MONOCYTES # (AUTO) 0.3 10^3/uL (0.0-1.0); MONOCYTES % (AUTO) 5 % (0-12); NEUTROPHILS # (AUTO) 4.7 10^3/uL (1.8-7.8); NEUTROPHILS % (AUTO) 84 % (42-75); PLATELET COUNT 187 10^3/uL (130-400); WHITE BLOOD COUNT 5.7 10^3/uL (4.3-11.0)
[2022-03-10 10:08] LABS: ALBUMIN 3.5 GM/DL (3.2-4.5)
[2022-03-10 10:09] LABS: POTASSIUM 3.5 MMOL/L (3.6-5.0)
[2022-03-10 10:10] LABS: CALCIUM 8.6 MG/DL (8.5-10.1)
[2022-03-10 10:11] LABS: TOTAL PROTEIN 7.5 GM/DL (6.4-8.2)
[2022-03-10 10:13] LABS: BILIRUBIN,TOTAL 0.3 MG/DL (0.1-1.0)
[2022-03-10 10:15] LABS: CREATININE SERUM 0.72 MG/DL (0.60-1.30)
[2022-03-10 10:59] LABS: BILIRUBIN,URINE NEGATIVE (NEGATIVE); CLARITY,URINE CLEAR; COLOR,URINE YELLOW; GLUCOSE, URINE (UA) NEGATIVE (NEGATIVE); KETONES,URINE NEGATIVE (NEGATIVE); LEUKOCYTE ESTERASE ,URINE 1+ (NEGATIVE); NITRITE,URINE NEGATIVE (NEGATIVE); PH,URINE 7.5 (5-9); PROTEIN,URINE 1+ (NEGATIVE)
[2022-03-10 11:14] LABS: BACTERIA,URINE FEW /HPF; SQUAMOUS EPITHELIAL CELL,UR RARE /HPF
--- NOTE | 2022-03-10 11:30 | Diagnostic Imaging Report ---
INDICATION: Febrile. Shortness of breath. Comparison with 01/29/2021. FINDINGS: Upright portable chest shows lungs to be well-aerated and clear. The heart is not enlarged. No pulmonary edema or hilar adenopathy. No pneumothorax or pleural effusion. IMPRESSION: Normal portable chest. Dictated by: Dictated on workstation # [id number]
[2022-03-10] MEDS ORDERED: NS IV 1000 ML 1,000 ML ONE (12:27)
[2022-03-10] MEDS ORDERED: CIPR-225 PO (14:07)
[2022-03-10] MEDS ORDERED: ONDA4TAB11 PO (14:07)
[2022-03-10] MEDS ORDERED: CHLO25CA10 PO (14:08)
[2022-03-10 14:18] VITALS: BP 97/64
== END 2022-03-10 14:15 | disposition home or self-care (01) ==
LOC: EDUNIT# 09:13 → ER 09:15
DX: N39.0 Urinary tract infection, site not specified (principal); E86.0 Dehydration; F10.930 Alcohol use, unspecified with withdrawal, uncomplicated; Z88.0 Allergy status to penicillin; Z88.1 Allergy status to other antibiotic agents; Z28.310 Unvaccinated for COVID-19; Z20.822 Contact with and (suspected) exposure to COVID-19
CPT/HCPCS: 36415; 71045; 80053; 81000; 83605; 84703; 85025; 87040; 87077; 87088; 87636

== ENCOUNTER 2022-03-15 19:01 | Observation (INO) | payer OTHER ==
[~2022-03-15] VITALS: Ht 154.9 cm; Wt 67.7 kg
[~2022-03-15 19:01] MED LIST changes: +CIPR-225 PO
[2022-03-15] MEDS ORDERED: RT-ALBUTEROL/IPRATROPIUM 3 ML (DUONEB) VIAL INH ONE (19:15)
[2022-03-15] MEDS ORDERED: LACTATED RINGERS 1,000 ML IV ONE ×2 (19:15)
[2022-03-15] MEDS ORDERED: ONDANSETRON 4 MG/2 ML (SDV) Z0FRAN IV PRN (19:15)
--- NOTE | 2022-03-15 19:18 | ED Chest Pain ---
General Chief Complaint: Chest Pain Source: patient Exam Limitations: no limitations History of Present Illness Date Seen by Provider: Mar 15, 2022 Time Seen by Provider: 18:46 Initial Comments Patient to the ER by private conveyance with chief complaint that she is having some left upper chest pain all day. She is having a cough that is unrelenting and nonproductive. She has a history of asthma. She says she has an alcoholic and was here couple days ago had a negative bedside screening as well as negative COVID swab at that time. She has had a couple C-sections but no other surgeries on her abdomen or chest. She denies any abdominal pain. She is having nausea and dry heaving. Poor oral intake. Patient is a fairly poor historian Allergies and Home Medications Allergies Coded Allergies: Penicillins (Unverified Allergy, Mild, 04/11/09) amoxicillin (Unverified Allergy, Mild, UNKNOWN, 06/22/09) cefaclor (Unverified Allergy, Mild, 04/11/09) Patient Home Medication List Home Medication List Reviewed: Yes Chlordiazepoxide HCl (Chlordiazepoxide HCl) 25 Mg Capsule, 50 MG PO Q6H Prescribed by: ARELI CASTAÑEDA MD on 03/10/22 1408 Ciprofloxacin HCl (Ciprofloxacin HCl) 500 Mg Tablet, 500 MG PO BID Prescribed by: ENOCH RAMESH on 11/22/21 1650 Ciprofloxacin HCl (Cipro) 500 Mg Tablet, 500 MG PO BID Prescribed by: ARELI CASTAÑEDA MD on 03/10/22 1407 Ondansetron (Ondansetron Odt) 4 Mg Tab.rapdis, 4 MG PO Q6H Prescribed by: ENOCH RAMESH on 11/22/21 1650 Ondansetron (Ondansetron Odt) 4 Mg Tab.rapdis, 4 MG PO Q6H Prescribed by: ARELI CASTAÑEDA MD on 03/10/22 1407 Review of Systems Review of Systems Constitutional: see HPI, chills; No fever; malaise EENTM: No Blurred Vision, No Double Vision Respiratory: Cough, Shortness of Air; Denies Wheezing Cardiovascular: See HPI, Chest Pain; Denies Edema Gastrointestinal: Denies Abdomen Distended, Denies Abdominal Pain; Nausea, Poor Fluid Intake; Denies Vomiting Genitourinary: Denies Burning, Denies Discharge Musculoskeletal: No back pain, No joint pain, No joint swelling Skin: No change in color, No pruritus, No rash All Other Systems Reviewed Negative Unless Noted: Yes Past Xuikgtw-Gocxlc-Ssfzxf Hx Patient Social History Use of E-Cig and/or Vaping dev: No Alcohol Use?: Yes Alcohol Frequency: Daily Immunizations Up To Date Tetanus Booster (TDap): More than 5yrs First/Initial COVID19 Vaccinat: NONE Second COVID19 Vaccination Miko: NONE Third COVID19 Vaccination Date: NONE Seasonal Allergies Seasonal Allergies: No Past Medical History Surgery/Hospitalization HX: ALCOHOLISM IN PATIENT REHAB X3 X 5 LAPAROSCOPY BILATERAL TUBAL LIGATION D AND C Surgeries: Yes ("BLADDER STRETCHED", LAPAROSCOPY, D&C) Abdominal, Section, Tubal Ligation Respiratory: Yes Asthma Cardiac: Yes Heart Murmur, Palpitations Neurological: Yes Seizure Disorder Reproductive Disorders: Yes (ENDOMETRIOSIS) Female Reproductive Disorders: Endometriosis Sexually Transmitted Disease: Yes (PID) Genitourinary: Yes Kidney Infection, Kidney Stones, UTI-Chronic Gastrointestinal: No Musculoskeletal: No Endocrine: No HEENT: No Cancer: No Psychosocial: Yes Anxiety, PTSD, Depression Integumentary: No Blood Disorders: No Family Medical History No Pertinent Family Hx, Cancer, Other Conditions/Hx Physical Exam Vital Signs Vital Signs - First Documented 03/15/22 03/15/22 19:01 19:38 Temp 36.4 Pulse 110 Resp 18 B/P (MAP) 93/68 (76) Pulse Ox 96 O2 Delivery Room Air Capillary Refill : Height, Weight, BMI Height: 5'1.50" Weight: 204lbs. 2.0oz. 92.513718bn; 26.00 BMI Method:Stated General Appearance: WD/WN, Anxious, Mild Distress HEENT: PERRL/EOMI, TMs Normal, Normal ENT Inspection; No Pharynx Normal, No Moist Mucous Membranes Neck: Full Range of Motion, Normal Inspection Respiratory: Lungs Clear, No Accessory Muscle Use, No Respiratory Distress, Decreased Breath Sounds Cardiovascular: Regular Rate, Rhythm, No Edema, Tachycardia (112) Gastrointestinal: Normal Bowel Sounds, Non Tender, Soft Neurologic/Psychiatric: Alert, Oriented x3, No Motor/Sensory Deficits Skin: Normal Color, Warm/Dry Focused Exam Lactate Level 03/15/22 19:18: Lactic Acid Level 2.34*H Lactic Acid Level Laboratory Tests Test 03/15/22 19:18 Lactic Acid Level 2.34 MMOL/L (0.50-2.00) *H Progress/Results/Core Measures Results/Orders Lab Results Laboratory Tests Test 03/15/22 19:05 03/15/22 19:12 03/15/22 19:18 03/15/22 21:21 Range/Units White Blood Count 5.9 4.3-11.0 10^3/uL Red Blood Count 4.21 3.80-5.11 10^6/uL Hemoglobin 11.4 L 11.5-16.0 g/dL Hematocrit 36 35-52 % Mean Corpuscular Volume 85 80-99 fL Mean Corpuscular Hemoglobin 27 25-34 pg Mean Corpuscular Hemoglobin Concent 32 32-36 g/dL Red Cell Distribution Width 17.7 H 10.0-14.5 % Platelet Count 328 130-400 10^3/uL Mean Platelet Volume 8.9 L 9.0-12.2 fL Immature Granulocyte % (Auto) 0 % Neutrophils (%) (Auto) 23 L 42-75 % Lymphocytes (%) (Auto) 62 H 12-44 % Monocytes (%) (Auto) 13 H 0-12 % Eosinophils (%) (Auto) 1 0-10 % Basophils (%) (Auto) 1 0-10 % Neutrophils # (Auto) 1.4 L 1.8-7.8 10^3/uL Lymphocytes # (Auto) 3.6 1.0-4.0 10^3/uL Monocytes # (Auto) 0.8 0.0-1.0 10^3/uL Eosinophils # (Auto) 0.1 0.0-0.3 10^3/uL Basophils # (Auto) 0.0 0.0-0.1 10^3/uL Immature Granulocyte # (Auto) 0.0 0.0-0.1 10^3/uL Sodium Level 146 H 135-145 MMOL/L Potassium Level 3.9 3.6-5.0 MMOL/L Chloride Level 108 H 98-107 MMOL/L Carbon Dioxide Level 21 21-32 MMOL/L Anion Gap 17 H 5-14 MMOL/L Blood Urea Nitrogen 6 L 7-18 MG/DL Creatinine 0.69 0.60-1.30 MG/DL Estimat Glomerular Filtration Rate 120 BUN/Creatinine Ratio 9 Glucose Level 107 H 70-105 MG/DL Calcium Level 9.3 8.5-10.1 MG/DL Corrected Calcium 9.6 8.5-10.1 MG/DL Total Bilirubin 0.2 0.1-1.0 MG/DL Aspartate Amino Transf (AST/SGOT) 96 H 5-34 U/L Alanine Aminotransferase (ALT/SGPT) 62 H 0-55 U/L Alkaline Phosphatase 87 40-136 U/L Troponin I < 0.028 <0.028 NG/ML Total Protein 8.3 H 6.4-8.2 GM/DL Albumin 3.6 3.2-4.5 GM/DL Salicylates Level < 5.0 L 5.0-20.0 MG/DL Acetaminophen Level < 10 L 10-30 UG/ML Serum Alcohol 412 *H <10 MG/DL Urine Color YELLOW Urine Clarity CLEAR Urine pH 7.0 5-9 Urine Specific [place] 1.010 L 1.016-1.022 Urine Protein 1+ H NEGATIVE Urine Glucose (UA) NEGATIVE NEGATIVE Urine Ketones NEGATIVE NEGATIVE Urine Nitrite NEGATIVE NEGATIVE Urine Bilirubin NEGATIVE NEGATIVE Urine Urobilinogen 0.2 < = 1.0 MG/DL Urine Leukocyte Esterase NEGATIVE NEGATIVE Urine RBC (Auto) TRACE-I H NEGATIVE Urine RBC 0-2 /HPF Urine WBC 2-5 /HPF Urine Squamous Epithelial Cells 10-25 H /HPF Urine Crystals NONE /LPF Urine Bacteria NEGATIVE /HPF Urine Casts NONE /LPF Urine Mucus SMALL H /LPF Urine Culture Indicated CULTURE PENDING Urine Opiates Screen NEGATIVE NEGATIVE Urine Oxycodone Screen NEGATIVE NEGATIVE Urine Methadone Screen NEGATIVE NEGATIVE Urine Propoxyphene Screen NEGATIVE NEGATIVE Urine Barbiturates Screen NEGATIVE NEGATIVE Ur Tricyclic Antidepressants Screen NEGATIVE NEGATIVE Urine Phencyclidine Screen NEGATIVE NEGATIVE Urine Amphetamines Screen NEGATIVE NEGATIVE Urine Methamphetamines Screen NEGATIVE NEGATIVE Urine Benzodiazepines Screen POSITIVE H NEGATIVE Urine Cocaine Screen NEGATIVE NEGATIVE Urine Cannabinoids Screen NEGATIVE NEGATIVE Lactic Acid Level 2.34 *H 0.50-2.00 MMOL/L Influenza Type A (RT-PCR) Not Detected Not Detecte Influenza Type B (RT-PCR) Not Detected Not Detecte SARS-CoV-2 RNA (RT-PCR) Not Detected Not Detecte My Orders Orders - REGAN LOWE Cbc With Automated Diff (03/15/22 19:10) Comprehensive Metabolic Panel (03/15/22 19:10) Blood Culture (03/15/22 19:10) Sputum Culture (03/15/22 19:10) Urinalysis (03/15/22 19:10) Urine Culture (03/15/22 19:10) Protime With Inr (03/15/22 19:10) Partial Thromboplastin Time (03/15/22 19:10) Chest 1 View, Ap/Pa Only (03/15/22 19:10) Ed Iv/Invasive Line Start (03/15/22 19:10) Ed Iv/Invasive Line Start (03/15/22 19:10) Ekg Tracing (03/15/22 19:10) Vital Signs Adult Sepsis Patie Q15M (03/15/22 19:10) Ondansetron Injection (Zofran Injectio (03/15/22 19:15) O2 (03/15/22 19:10) Remove Rings In Anticipation O (03/15/22 19:10) Lactic Acid Analyzer (03/15/22 19:10) Lactated Ringers (Lr 1000 Ml Iv Solution (03/15/22 19:15) Albuterol/Ipra Inhalation Soln (Duoneb I (03/15/22 19:15) Ed Iv/Invasive Line Start (03/15/22 19:10) Lactated Ringers (Lr 1000 Ml Iv Solution (03/15/22 19:15) Svn Small Volume Nebulizer (03/15/22 19:10) Urine Bedside (03/15/22 19:10) Drug Screen Stat (Urine) (03/15/22 19:10) Alcohol (03/15/22 19:10) Salicylate (03/15/22 19:10) Acetaminophen (03/15/22 19:10) Troponin I Anali (03/15/22 19:14) Fibrin Degradation Products (03/15/22 19:14) Chest Pa/Lat (2 View) (03/15/22 21:14) Covid 19 Inhouse Test (03/15/22 21:14) Influenza A And B By Pcr (03/15/22 21:14) Mycoplasma Antibodies (03/15/22 21:38) Medications Given in ED Current Medications Medications Dose Ordered Sig/Zenaida Route Start Time Stop Time Status Last Admin Dose Admin Albuterol/ Ipratropium 3 ml ONCE ONCE INH 03/15/22 19:15 03/15/22 19:16 DC 03/15/22 19:37 3 ML Lactated Ringer's 1,000 ml @ 0 mls/hr Q0M ONCE IV 03/15/22 19:15 03/15/22 19:16 DC 03/15/22 19:20 0 MLS/HR Lactated Ringer's 1,000 ml @ 0 mls/hr Q0M ONCE IV 03/15/22 19:15 03/15/22 19:16 DC 03/15/22 20:06 0 MLS/HR Ondansetron HCl 8 mg PRN PRN IV 03/15/22 19:15 03/15/22 19:20 DC 03/15/22 19:20 8 MG Vital Signs/I&O 03/15/22 03/15/22 19:01 19:38 Temp 36.4 Pulse 110 Resp 18 B/P (MAP) 93/68 (76) Pulse Ox 96 98 O2 Delivery Room Air Progress Progress Note #1: Time: 19:17 Progress Note Plan to give her couple liters of fluids which would be 30 mL/kg, get a chest x- ray EKG troponin labs looking for myocarditis, COVID, influenza, pneumonia. We will get a D-dimer as she is tachycardic, complaining of shortness of air and chest pain. Check an alcohol level and drug screen. Give her some Zofran for her nausea. Progress Note #2: Time: 22:49 Progress Note Patient sleeping soundly. She has an alcohol level well over 400. She does not have anybody here with her. The plan is to let her sleep off her alcohol levels and reassess her. Right now she does not appear to have pneumonia, bronchitis although she does have a cough so we ordered mycoplasma antibodies. CRP and white count are normal. She is received 2 L of fluids. Plan to wait for her alcohol levels to come down before discharging. She has indicated that she wants help with detoxing so if she still wants help with detoxing we can set her up with Librium or Ativan outpatient and have her follow-up on Thursday after the holiday with the alcohol treatment team at [facility]. At no point has the patient made any suicidal or homicidal comments. Initial ECG Impression Date: Mar 15, 2022 Initial ECG Impression Time: 19:27 Initial ECG Rate: 81 Initial ECG Rhythm: Normal Sinus Initial ECG Intervals: Normal Initial ECG Impression: Normal Comment Normal sinus rhythm without clinically relevant ST changes. Diagnostic Imaging Diagonstic Imaging: Xray Plain Films/CT/US/NM/MRI: chest Comments [facility] [place] [place] NAME: RICCI CARABALLO [facility] REC#: [id number] PT STATUS: REG ER : 1990 PHYSICIAN: REGAN LOWE MD ADMIT DATE: 03/15/22/ER Draft Date of Exam:03/15/22 CHEST 1 VIEW, AP/PA ONLY CLINICAL INDICATION: Patient with cough and shortness of air. EXAM: Portable chest x-ray upright view. COMPARISON: Chest x-ray dated 03/10/2022. FINDINGS: Lungs/pleura: There is mild ill-defined groundglass opacification involving the bilateral perihilar regions. Otherwise, lungs are clear. There is no pneumothorax. There is no pleural effusion. Mediastinum: Unremarkable. Pulmonary vasculature: Unremarkable. Heart: Unremarkable. Bones/extrathoracic soft tissue: Unremarkable. IMPRESSION: There is mild ill-defined groundglass opacification involving the bilateral perihilar regions which may represent infection or inflammatory process. Superimposed chest soft tissue density may also give this appearance as well. Chest x-ray PA and lateral views may help better evaluate, if necessary. Dictated on workstation # [id number] Dict: 03/15/222012 Trans: 03/15/22 2017 [facility] [id number] Interpreted by: JUSTIN DAWN MD Electronically signed by: Reviewed: Reviewed by Me Diagonstic Imaging: Xray Plain Films/CT/US/NM/MRI: chest (2v) Comments [facility] [place], [place] NAME: RICCI CARABALLO [facility] REC#: [id number] PT STATUS: REG ER : 1990 PHYSICIAN: REGAN LOWE MD ADMIT DATE: 03/15/22/ER Draft Date of Exam:03/15/22 CHEST PA/LAT (2 VIEW) CLINICAL INDICATION: Patient with chest pain. EXAM: Portable chest x-ray upright view. COMPARISON: Chest x-ray dated 03/15/2022. FINDINGS: Lungs/pleura: Lungs are better visualized on this exam than the prior study. Lungs are clear. There is no pneumothorax. There is no pleural effusion. Mediastinum: Unremarkable. Pulmonary vasculature: Unremarkable. Heart: Unremarkable. Bones/extrathoracic soft tissue: Unremarkable. IMPRESSION: There is no radiographic evidence of acute cardiopulmonary process. Dictated on workstation # [id number] Dict: 03/15/222149 Trans: 03/15/222205 [facility] [id number] Interpreted by: JUSTIN DAWN MD Electronically signed by: Reviewed: Reviewed by Me Departure Communication (Admissions) Time/Spoke to Admitting Phy: 22:50 Dr. Ramesh agrees to observe the patient with as needed medications. Impression Primary Impression: Alcohol intoxication Qualified Codes: F10.920 - Alcohol use, unspecified with intoxication, uncomplicated Additional Impression: URTI (infection of the upper respiratory tract) Qualified Codes: J06.9 - Acute upper respiratory infection, unspecified Disposition: ADMITTED INPATIENT Condition: Stable Admissions Decision to Admit Reason: Admit from ER (General) Decision to Admit/Date: Mar 15, 2022 Time/Decision to Admit Time: 22:48 Departure-Patient Inst. Referrals: [facility] (PCP/Family) Primary Care Physician REGAN LOWE Mar 15, 2022 19:18
[2022-03-15 19:30] LABS: BASOPHILS % (AUTO) 1 % (0-10); EOSINOPHILS # (AUTO) 0.1 10^3/uL (0.0-0.3); EOSINOPHILS % (AUTO) 1 % (0-10); HEMATOCRIT 36 % (35-52); HEMOGLOBIN 11.4 g/dL (11.5-16.0); LYMPHOCYTES # (AUTO) 3.6 10^3/uL (1.0-4.0); LYMPHOCYTES % (AUTO) 62 % (12-44); MEAN CORPUSCULAR HEMOGLOBIN 27 pg (25-34); MEAN CORPUSCULAR HGB CONC 32 g/dL (32-36); MEAN CORPUSCULAR VOLUME 85 fL (80-99); MEAN PLATELET VOLUME 8.9 fL (9.0-12.2); MONOCYTES # (AUTO) 0.8 10^3/uL (0.0-1.0); MONOCYTES % (AUTO) 13 % (0-12); NEUTROPHILS # (AUTO) 1.4 10^3/uL (1.8-7.8); NEUTROPHILS % (AUTO) 23 % (42-75); PLATELET COUNT 328 10^3/uL (130-400); WHITE BLOOD COUNT 5.9 10^3/uL (4.3-11.0)
[2022-03-15 19:33] LABS: BILIRUBIN,URINE NEGATIVE (NEGATIVE); CLARITY,URINE CLEAR; COLOR,URINE YELLOW; GLUCOSE, URINE (UA) NEGATIVE (NEGATIVE); KETONES,URINE NEGATIVE (NEGATIVE); LEUKOCYTE ESTERASE ,URINE NEGATIVE (NEGATIVE); NITRITE,URINE NEGATIVE (NEGATIVE); PROTEIN,URINE 1+ (NEGATIVE)
[2022-03-15 19:48] LABS: BENZODIAZEPINES SCREEN URINE POSITIVE (NEGATIVE)
[2022-03-15 19:51] LABS: AMPHETAMINE SCREEN, URINE NEGATIVE (NEGATIVE); BARBITURATE SCREEN URINE NEGATIVE (NEGATIVE); CANNABINOID SCREEN, URINE NEGATIVE (NEGATIVE); COCAINE SCREEN URINE NEGATIVE (NEGATIVE); METHADONE STAT NEGATIVE (NEGATIVE); OPIATE SCREEN URINE NEGATIVE (NEGATIVE); OXYCODONE STAT NEGATIVE (NEGATIVE); PROPOXYPHENE STAT NEGATIVE (NEGATIVE); TRICYCLIC ANTIDEPRESSANTS SCRE NEGATIVE (NEGATIVE)
[2022-03-15 19:54] LABS: ALANINE AMINOTRANSFERASE 62 U/L (0-55); ALBUMIN 3.6 GM/DL (3.2-4.5); ALKALINE PHOSPHATASE 87 U/L (40-136); BILIRUBIN,TOTAL 0.2 MG/DL (0.1-1.0); BUN/CREATININE RATIO 9; CALCIUM 9.3 MG/DL (8.5-10.1); CARBON DIOXIDE 21 MMOL/L (21-32); CHLORIDE 108 MMOL/L (98-107); CREATININE SERUM 0.69 MG/DL (0.60-1.30); GFR ESTIMATED 120; GLUCOSE 107 MG/DL (70-105); POTASSIUM 3.9 MMOL/L (3.6-5.0); SALICYLATE < 5.0 MG/DL (5.0-20.0); SODIUM 146 MMOL/L (135-145); TOTAL PROTEIN 8.3 GM/DL (6.4-8.2)
[2022-03-15 20:04] LABS: BACTERIA,URINE NEGATIVE /HPF; RBC,URINE 0-2 /HPF
[2022-03-15 20:15] LABS: ACETAMINOPHEN < 10 UG/ML (10-30)
--- NOTE | 2022-03-15 20:17 | Diagnostic Imaging Report ---
CLINICAL INDICATION: Patient with cough and shortness of air. EXAM: Portable chest x-ray upright view. COMPARISON: Chest x-ray dated 03/10/2022. FINDINGS: Lungs/pleura: There is mild ill-defined groundglass opacification involving the bilateral perihilar regions. Otherwise, lungs are clear. There is no pneumothorax. There is no pleural effusion. Mediastinum: Unremarkable. Pulmonary vasculature: Unremarkable. Heart: Unremarkable. Bones/extrathoracic soft tissue: Unremarkable. IMPRESSION: There is mild ill-defined groundglass opacification involving the bilateral perihilar regions which may represent infection or inflammatory process. Superimposed chest soft tissue density may also give this appearance as well. Chest x-ray PA and lateral views may help better evaluate, if necessary. Dictated by: Dictated on workstation # [id number]
--- NOTE | 2022-03-15 22:07 | Diagnostic Imaging Report ---
CLINICAL INDICATION: Patient with chest pain. EXAM: Portable chest x-ray upright view. COMPARISON: Chest x-ray dated 03/15/2022. FINDINGS: Lungs/pleura: Lungs are better visualized on this exam than the prior study. Lungs are clear. There is no pneumothorax. There is no pleural effusion. Mediastinum: Unremarkable. Pulmonary vasculature: Unremarkable. Heart: Unremarkable. Bones/extrathoracic soft tissue: Unremarkable. IMPRESSION: There is no radiographic evidence of acute cardiopulmonary process. Dictated by: Dictated on workstation # [id number]
[2022-03-16] MEDS ORDERED: D5 1/2 NS 1000 ML IV SOLUTION 1,000 ML IV PRN (00:15)
[2022-03-16] MEDS ORDERED: 1/2 NS IV SOLUTION 1,000 ML IV PRN (00:15)
[2022-03-16] MEDS ORDERED: D5 1/2 NS 1000 ML IV SOLUTION 0 ML IV ONE (00:22)
[2022-03-16 00:24] VITALS: BP_SYST 116; BP_SYST 142; BP_DIAS 80
[2022-03-16] MEDS ORDERED: SENNA W/DOCUSATE (SENOKOT S) TABLET PO PRN (00:30)
[2022-03-16] MEDS ORDERED: ONDANSETRON 4 MG/2 ML (SDV) Z0FRAN IV PRN (00:30)
[2022-03-16] MEDS ORDERED: CATHETER FLUSH 10 ML SYR IVP PRN (00:30)
[2022-03-16] MEDS ORDERED: ONDANSETRON 4 MG (ZOFRAN) ORAL DISSOLVE TAB SL PRN (00:30)
[2022-03-16] MEDS ORDERED: ACETAMINOPHEN 325 MG TABLET PO PRN (00:30)
[2022-03-16] MEDS ORDERED: LORazepam 1 MG (ATIVAN) TAB PO PRN (00:30)
[2022-03-16] MEDS ORDERED: ANTACID SUSP 30 ML UDC (MYLANTA) PO PRN (00:30)
[2022-03-16] MEDS ORDERED: PROMETHAZINE INJ 25 MG/ML (PHENERGAN) AMP IVP PRN (00:30)
[2022-03-16] MEDS ORDERED: LORazepam INJ 2 MG/ML (ATIVAN) VIAL IV PRN (00:30)
[2022-03-16] MEDS ORDERED: LORazepam 0.5 MG (ATIVAN) TABLET PO PRN (00:30)
[2022-03-16] MEDS ORDERED: LORazepam INJ 2 MG/ML (ATIVAN) VIAL IM/IV PRN (00:30)
[2022-03-16] MEDS ORDERED: RT-ALBUTEROL/IPRATROPIUM 3 ML (DUONEB) VIAL INH PRN (01:00)
[2022-03-16 03:16] VITALS: BP 108/69
[2022-03-16 05:45] LABS: BASOPHILS % (AUTO) 1 % (0-10); EOSINOPHILS # (AUTO) 0.1 10^3/uL (0.0-0.3); EOSINOPHILS % (AUTO) 3 % (0-10); HEMATOCRIT 32 % (35-52); LYMPHOCYTES # (AUTO) 1.7 10^3/uL (1.0-4.0); LYMPHOCYTES % (AUTO) 45 % (12-44); MEAN CORPUSCULAR HEMOGLOBIN 27 pg (25-34); MEAN CORPUSCULAR HGB CONC 31 g/dL (32-36); MEAN CORPUSCULAR VOLUME 85 fL (80-99); MEAN PLATELET VOLUME 9.2 fL (9.0-12.2); MONOCYTES # (AUTO) 0.5 10^3/uL (0.0-1.0); MONOCYTES % (AUTO) 14 % (0-12); NEUTROPHILS # (AUTO) 1.4 10^3/uL (1.8-7.8); NEUTROPHILS % (AUTO) 37 % (42-75); PLATELET COUNT 259 10^3/uL (130-400); WHITE BLOOD COUNT 3.9 10^3/uL (4.3-11.0)
[2022-03-16] MEDS ORDERED: CATHETER FLUSH 10 ML SYR IVP SCH (06:00)
[2022-03-16 06:10] LABS: POTASSIUM 3.5 MMOL/L (3.6-5.0)
[2022-03-16 06:11] LABS: CALCIUM 8.4 MG/DL (8.5-10.1)
[2022-03-16 06:15] LABS: CREATININE SERUM 0.63 MG/DL (0.60-1.30)
--- NOTE | 2022-03-16 06:39 | Short Stay Summary-Hospitalist ---
History of Present Illness HPI/Chief Complaint CC: Alcohol intoxication HPI: This is a 31-year-old female of [employer] known alcoholic who presented to the ER with intoxication who is currently doing much better. She reports that she has a hangover but overall she is ready to go home. Source: patient Exam Limitations: no limitations Date Seen 03/16/22 Time Seen by a Provider: 11:00 Attending Physician [place] PCP Admitting Physician: Frieda Coker DO Attending Physician: Frieda Coker DO Referring Physician Date of Admission Mar 15, 2022 at 23:00 Home Medications & Allergies Home Medications Reviewed patient Home Medication Reconciliation performed by pharmacy medication reconciliations office equipment technician and/or nursing. Patients Allergies have been reviewed. Allergies Allergies Coded Allergies Penicillins (Unverified Allergy, Mild, 04/11/09) amoxicillin (Unverified Allergy, Mild, UNKNOWN, 06/22/09) cefaclor (Unverified Allergy, Mild, 04/11/09) Past Upsmemd-Rrtwgz-Hhjepy Hx Patient Social History Marrital Status: single Employed/Student: unemployed Tobacco Use?: No Smoking Status: Never a Smoker Smokeless Tobacco Frequency: Never a User Use of E-Cig and/or Vaping dev: No Substance use?: No Alcohol Use?: Yes Alcohol type: Hard Liquor Additional alcohol type: VODKA Alcohol Frequency: Daily Pt feels they are or have been: No Immunizations Up To Date First/Initial COVID19 Vaccinat: NONE Second COVID19 Vaccination Miko: NONE Tetanus Booster (TDap): Unknown Hepatitis A: No Hepatitis B: No Seasonal Allergies Seasonal Allergies: No Current Status status: No status: No Advance Directives: No Communicates: Verbally Primary Language: Greek Preferred Spoken Language: Greek Is interpretation needed?: No Implanted or Applied Medical D: None Past Medical History Surgeries: Abdominal, Section, Tubal Ligation Asthma Heart Murmur, Palpitations Seizure Disorder Sexually Transmitted Disease: Yes (PID) Kidney Infection, Kidney Stones, UTI-Chronic Anxiety, PTSD, Depression Blood Disorders: No EtOHism Family Medical History No Pertinent Family Hx, Cancer, Other Conditions/Hx Review of Systems Constitutional: see HPI, malaise, weakness Physical Exam Physical Exam Vital Signs Vital Signs - First Documented 03/15/22 03/15/22 19:01 19:38 Temp 36.4 Pulse 110 Resp 18 B/P (MAP) 93/68 (76) Pulse Ox 96 O2 Delivery Room Air Capillary Refill : Height, Weight, BMI Height: 5'1.50" Weight: 204lbs. 2.0oz. 92.437038ba; 28.21 BMI Method:Stated General Appearance: WD/WN, Anxious, Chronically ill, Mild Distress HEENT: PERRL/EOMI, TMs Normal, Normal ENT Inspection; No Pharynx Normal, No Moist Mucous Membranes Neck: Full Range of Motion, Normal Inspection Respiratory: Lungs Clear, No Accessory Muscle Use, No Respiratory Distress, Decreased Breath Sounds Cardiovascular: Regular Rate, Rhythm, No Edema, Tachycardia (112) Gastrointestinal: Normal Bowel Sounds, Non Tender, Soft Neurologic/Psychiatric: Alert, Oriented x3, No Motor/Sensory Deficits Skin: Normal Color, Warm/Dry Results Results/Procedures Labs Laboratory Tests 03/15/22 19:05 03/16/22 04:52 Patient resulted labs reviewed. Short Stay Diagnosis Discharge Diagnosis-Short Stay Admission Diagnosis Alcohol intoxication Final Discharge Diagnosis Alcohol intoxication Conclusion Plan Discharge home Diagnosis/Problems Diagnosis/Problems (1) Alcohol intoxication Status: Acute Qualifiers: Qualified Codes: F10.920 - Alcohol use, unspecified with intoxication, uncomplicated FRIEDA COKER DO Mar 16, 2022 06:39
[2022-03-16 06:52] LABS: ALBUMIN 3.1 GM/DL (3.2-4.5)
[2022-03-16 06:54] LABS: TOTAL PROTEIN 7.1 GM/DL (6.4-8.2)
[2022-03-16 06:56] LABS: BILIRUBIN,TOTAL 0.2 MG/DL (0.1-1.0)
[2022-03-16 07:00] LABS: BILIRUBIN,DIRECT 0.1 MG/DL (0.0-0.3); BILIRUBIN,INDIRECT 0.1 MG/DL
[2022-03-16] MEDS ORDERED: KCL 20 MEQ TAB (K-DUR) PO SCH (07:00)
[2022-03-16] MEDS ORDERED: THIAMINE 100 MG (VITAMIN B-1) TAB PO SCH (07:00)
[2022-03-16] MEDS ORDERED: MULTIVIT W/MINERALS TAB (THERAGRAN M) PO SCH (07:00)
[2022-03-16 07:40] VITALS: BP 98/57
[2022-03-16] MEDS ORDERED: MAGNESIUM OXIDE (MAG-OX)400 MG TAB PO SCH (08:00)
[2022-03-16] MEDS ORDERED: FOLIC ACID 1 MG TAB PO SCH (09:00)
[2022-03-16 12:05] VITALS: BP 106/62
[2022-03-16] MEDS ORDERED: CHLO25CA10 PO (12:48)
[2022-03-16] MEDS ORDERED: MULT-1136 PO (12:48)
== END 2022-03-16 12:44 | disposition home or self-care (01) ==
LOC: EDUNIT# 19:01 → ER 19:02 → 4TH 23:00 → ER 23:52
PROVIDERS: ADMIT Internal Medicine; ATTEND Internal Medicine
DX: F10.920 Alcohol use, unspecified with intoxication, uncomplicated (principal); J06.9 Acute upper respiratory infection, unspecified
CPT/HCPCS: 71045; 71046; 80048; 80053; 80076; 80306; 81000; 83605; 84484; 84703; 85025 ×2; 86738; 87040; 87088; 87636; 93005; 94640; 96361; 96374; 99284; G0378; G0480 ×4; 36415; 80320; 80329

== ENCOUNTER 2022-04-27 16:24 | Emergency (ER) | payer OTHER ==
[~2022-04-27] VITALS: Ht 149.8 cm; Wt 67.7 kg
[~2022-04-27 16:24] MED LIST changes: +MULT-1136 PO
[2022-04-27 16:44] VITALS: BP 128/80
--- NOTE | 2022-04-27 17:12 | ED Psychosocial ---
General Chief Complaint: Substance Abuse Stated Complaint: POSS SPIDER BITE/ETOH DETOX Nursing Triage Note: wants to detox from etoh. states she is going through withdrawl from not having anything to drink this morning because the liquorstore didnt open until noon. so now that she has had a pint of vodka she is able to function better and enough to come to the ED to get help. states she wants inpatient treatment because she is afraid she is going to . Source: patient Exam Limitations: intoxication (ROHAN RANDALL APRN) History of Present Illness Date Seen by Provider: Apr 27, 2022 Time Seen by Provider: 17:12 Initial Comments 31 y/o female presents today requesting alcohol detox. Pt states she drinks a gallon of liquor everyday and she is ready to quit. She reports being in rehab countless times but states "I just wasn't ready to quit but now I am. My daughter just broke her arm and I need to be alive to take care of her. I am scared I am going to ." Pt's significant other that accompanies her today states her last drink was at 1300 this afternoon. Timing/Duration: constant Associated Symptoms: denies symptoms (ROHAN RANDALL APRN) Allergies and Home Medications Allergies Coded Allergies: Penicillins (Unverified Allergy, Mild, 04/11/09) amoxicillin (Unverified Allergy, Mild, UNKNOWN, 06/22/09) cefaclor (Unverified Allergy, Mild, 04/11/09) Patient Home Medication List Home Medication List Reviewed: Yes (ROHAN RANDALL APRN) Chlordiazepoxide HCl (Chlordiazepoxide HCl) 25 Mg Capsule, 50 MG PO UD Prescribed by: ENOCH RAMESH on 03/16/221247 Multivitamin (Multivitamin) 1 Each Tablet, 1 EACH PO DAILY Prescribed by: ENOCH RAMESH on 03/16/228 Review of Systems Constitutional: No diaphoresis, No fever, No malaise, No weakness EENTM: No blurred vision, No double vision, No vision loss Respiratory: No dyspnea on exertion, No short of breath Cardiovascular: No chest pain, No edema, No palpitations, No syncope Gastrointestinal: No abdominal pain, No melena, No nausea, No vomiting Genitourinary: no symptoms reported Musculoskeletal: no symptoms reported Psychiatric/Neurological: Denies Anxiety, Denies Depressed, Denies Headache, Denies Numbness, Denies Paresthesia, Denies Seizure, Denies Tingling, Denies Tremors, Denies Weakness (ROHAN RANDALL APRN) Past Qpvuxed-Srjycq-Gngosx Hx Patient Social History Tobacco Use?: No Use of E-Cig and/or Vaping dev: No Substance use?: Yes Substance type: Methamphetamine Alcohol Use?: Yes Alcohol type: Hard Liquor Alcohol Frequency: Daily Pt feels they are or have been: No (ROHAN RANDALL APRN) Immunizations Up To Date Tetanus Booster (TDap): More than 5yrs Influenza Vaccine Up-to-Date: No; Not Current First/Initial COVID19 Vaccinat: NONE Second COVID19 Vaccination Miko: NONE Third COVID19 Vaccination Date: NONE (ROHAN RANDALL APRN) Seasonal Allergies Seasonal Allergies: No (ROHAN RANDALL APRN) Past Medical History Surgery/Hospitalization HX: alcoholism, PTSD 5 c sections, bladder streching and d&c. Surgeries: Yes ("BLADDER STRETCHED", LAPAROSCOPY, D&C) Abdominal, Section, Tubal Ligation Respiratory: Yes Asthma Cardiac: Yes Heart Murmur, Palpitations Neurological: Yes Seizure Disorder Last Menstrual Period: Mar 10, 2022 Reproductive Disorders: Yes (ENDOMETRIOSIS) Female Reproductive Disorders: Endometriosis Sexually Transmitted Disease: Yes (PID) Genitourinary: Yes Kidney Infection, Kidney Stones, UTI-Chronic Gastrointestinal: No Musculoskeletal: No Endocrine: No HEENT: No Cancer: No Psychosocial: Yes Anxiety, PTSD, Depression Integumentary: No Blood Disorders: No (ROHAN RANDALL APRN) Family Medical History No Pertinent Family Hx, Cancer, Other Conditions/Hx (ROHAN RANDALL APRN) Physical Exam Vital Signs - First Documented 04/27/22 16:44 Temp 37.2 Pulse 117 Resp 16 B/P (MAP) 128/80 (96) Pulse Ox 97 O2 Delivery Room Air (BERLIN TOLENTINO MD) Capillary Refill : Less Than 3 Seconds (ROHAN RANDALL APRN) Height, Weight, BMI Height: 5'1.50" Weight: 204lbs. 2.0oz. [id number]; 30.00 BMI Method:Stated General Appearance: WD/WN, no apparent distress Respiratory: lungs clear, normal breath sounds, no respiratory distress Cardiovascular: regular rate, rhythm, no murmur Gastrointestinal: non tender, soft; No distended, No guarding, No rebound Extremities: normal range of motion, non-tender Neurologic/Psychiatric: no motor/sensory deficits, alert, oriented x 3 Appearance/Memory: disheveled, impaired insight Behavior/Eye Contact: increased rate of speech, uncooperative Thoughts/Hallucinations: no apparent hallucination Skin: normal color, warm/dry, other (superficial abrasion to right knee) (ROHAN RANDALL APRN) Progress/Results/Core Measures Results/Orders Vital Signs/I&O 04/27/22 16:44 Temp 37.2 Pulse 117 Resp 16 B/P (MAP) 128/80 (96) Pulse Ox 97 O2 Delivery Room Air (BERLIN TOLENTINO MD) Blood Pressure Mean: 96 Progress Progress Note : Progress Note Discussed with Dr Tolentino who states pt will have to arrange for outpatient detox/rehab if she is not actively withdrawing or symptomatic. Vitals stable, pt is in NAD. She became upset and states "you have to admit me, I have no place to go." Pt was instructed on tapering use of alcohol slowly to prevent withdraw and would need to f/u with [facility] for assistance with outpatient treatment for alcohol abuse. She refused and chooses to leave here AMA. (ROHAN RANDALL APRN) Departure Impression Primary Impression: Alcohol abuse Disposition: AGAINST MEDICAL ADVICE Condition: Against Medical Advice Departure-Patient Inst. [facility] [facility] [place] Primary Care Physician Patient Instructions: ALCOHOL AND SUBSTANCE ABUSE ATTENDING PHYSICIAN NOTE: I was physically present as attending physician in the emergency department during the care of this patient. I discussed management of patient's desiring alcohol detox with Rohan Randall, but I was not otherwise directly involved in the decision making or delivery of care for this patient. (BERLIN TOLENTINO MD) ROHAN RANDALL APRN Apr 27, 2022 17:12 BERLIN TOLENTINO MD Apr 27, 2022 19:41
== END 2022-04-27 17:25 | disposition left against medical advice (07) ==
LOC: EDUNIT# 16:24 → ER 16:27
DX: F10.10 Alcohol abuse, uncomplicated (principal); S80.211A Abrasion, right knee, initial encounter; Z28.310 Unvaccinated for COVID-19; X58.XXXA Exposure to other specified factors, initial encounter
CPT/HCPCS: 99284

== ENCOUNTER 2022-07-14 09:29 | Emergency (ER) | payer SELFPAY ==
[~2022-07-14] VITALS: Ht 149.8 cm; Wt 58.9 kg
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
[2022-07-14 11:00] LABS: BASOPHILS % (AUTO) 1 % (0-10); EOSINOPHILS # (AUTO) 0.1 10^3/uL (0.0-0.3); EOSINOPHILS % (AUTO) 1 % (0-10); HEMATOCRIT 35 % (35-52); HEMOGLOBIN 11.1 g/dL (11.5-16.0); LYMPHOCYTES # (AUTO) 2.2 10^3/uL (1.0-4.0); LYMPHOCYTES % (AUTO) 49 % (12-44); MEAN CORPUSCULAR HEMOGLOBIN 28 pg (25-34); MEAN CORPUSCULAR HGB CONC 32 g/dL (32-36); MEAN CORPUSCULAR VOLUME 88 fL (80-99); MEAN PLATELET VOLUME 8.4 fL (9.0-12.2); MONOCYTES # (AUTO) 0.4 10^3/uL (0.0-1.0); MONOCYTES % (AUTO) 9 % (0-12); NEUTROPHILS # (AUTO) 1.7 10^3/uL (1.8-7.8); NEUTROPHILS % (AUTO) 39 % (42-75); PLATELET COUNT 251 10^3/uL (130-400); WHITE BLOOD COUNT 4.4 10^3/uL (4.3-11.0)
[2022-07-14 11:17] LABS: ALANINE AMINOTRANSFERASE 69 U/L (0-55); ALBUMIN 3.8 GM/DL (3.2-4.5); ALKALINE PHOSPHATASE 50 U/L (40-136); BILIRUBIN,TOTAL 0.3 MG/DL (0.1-1.0); BUN/CREATININE RATIO 15; CALCIUM 7.9 MG/DL (8.5-10.1); CARBON DIOXIDE 25 MMOL/L (21-32); CHLORIDE 108 MMOL/L (98-107); CREATININE SERUM 0.67 MG/DL (0.60-1.30); GFR ESTIMATED 120; GLUCOSE 81 MG/DL (70-105); POTASSIUM 3.4 MMOL/L (3.6-5.0); SALICYLATE < 5.0 MG/DL (5.0-20.0); SODIUM 143 MMOL/L (135-145); TOTAL PROTEIN 7.2 GM/DL (6.4-8.2)
[2022-07-14 11:20] LABS: ACETAMINOPHEN < 10 UG/ML (10-30)
[2022-07-14] MEDS ORDERED: CHLO25CA10 PO (12:38)
[2022-07-14 12:50] VITALS: BP 110/79
== END 2022-07-14 12:50 | disposition home or self-care (01) ==
LOC: EDUNIT# 09:29 → ER 09:32
DX: F10.129 Alcohol abuse with intoxication, unspecified (principal); Y90.8 Blood alcohol level of 240 mg/100 ml or more
CPT/HCPCS: 80053; 85025; 93005; 99283; G0480 ×3; 36415; 80320; 80329

== ENCOUNTER 2023-03-08 13:43 | Emergency (ER) | payer SELFPAY ==
[~2023-03-08] VITALS: Ht 149 cm; Wt 58.9 kg
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
[2023-03-08 14:20] LABS: ALBUMIN 4.4 GM/DL (3.2-4.5); POTASSIUM 3.1 MMOL/L (3.6-5.0)
[2023-03-08 14:26] LABS: CREATININE SERUM 0.82 MG/DL (0.60-1.30)
[2023-03-08 14:28] LABS: BASOPHILS % (AUTO) 1 % (0-10); EOSINOPHILS # (AUTO) 0.1 10^3/uL (0.0-0.3); EOSINOPHILS % (AUTO) 2 % (0-10); HEMATOCRIT 38 % (35-52); HEMOGLOBIN 12.8 g/dL (11.5-16.0); LYMPHOCYTES # (AUTO) 0.8 X 10^3 (1.0-4.0); LYMPHOCYTES % (AUTO) 22 % (12-44); MEAN CORPUSCULAR HEMOGLOBIN 31 pg (25-34); MEAN CORPUSCULAR HGB CONC 33 g/dL (32-36); MEAN CORPUSCULAR VOLUME 92 fL (80-99); MEAN PLATELET VOLUME 9.6 fL (9.0-12.2); MONOCYTES # (AUTO) 0.5 X 10^3 (0.0-1.0); MONOCYTES % (AUTO) 14 % (0-12); NEUTROPHILS # (AUTO) 2.2 X 10^3 (1.8-7.8); NEUTROPHILS % (AUTO) 62 % (42-75); PLATELET COUNT 193 10^3/uL (130-400); WHITE BLOOD COUNT 3.6 10^3/uL (4.3-11.0)
[2023-03-08] MEDS ORDERED: POTASSIUM CHLORIDE 20 MEQ TABLET PO ONE (14:30)
[2023-03-08 15:01] LABS: AMPHETAMINE SCREEN, URINE POSITIVE (NEGATIVE); BARBITURATE SCREEN URINE NEGATIVE (NEGATIVE); BENZODIAZEPINES SCREEN URINE NEGATIVE (NEGATIVE); CANNABINOID SCREEN, URINE POSITIVE (NEGATIVE); COCAINE SCREEN URINE NEGATIVE (NEGATIVE); METHADONE STAT NEGATIVE (NEGATIVE); OPIATE SCREEN URINE NEGATIVE (NEGATIVE); OXYCODONE STAT NEGATIVE (NEGATIVE); PROPOXYPHENE STAT NEGATIVE (NEGATIVE); TRICYCLIC ANTIDEPRESSANTS SCRE NEGATIVE (NEGATIVE)
[2023-03-08 15:40] VITALS: BP 115/92
== END 2023-03-08 15:40 | disposition home or self-care (01) ==
LOC: EDUNIT# 13:43 → ER 13:45
DX: T76.21XA Adult sexual abuse, suspected, initial encounter (principal); R79.89 Other specified abnormal findings of blood chemistry; Z28.310 Unvaccinated for COVID-19
CPT/HCPCS: 36415; 80053; 80306; 84703; 85025; 99283